=== PATIENT | female | born 1985 | race Caucasian/White ===

== ENCOUNTER 2018-06-28 11:44 | Inpatient (IN) | payer BC ==
[~2018-06-28] VITALS: Ht 172.7 cm; Wt 67.1 kg
--- NOTE | 2018-06-28 12:14 | Emergency Room Report ---
History of Present Illness General Chief Complaint: General Complaint Source: Patient Present Illness HPI 33-year-old female patient presents the ER complaining of bilateral hidradenitis suppurativa. Patient was referred to the ER by her doctor for evaluation of her hidradenitis vs possible abscess. Patient states has been present for several years, states pain has become increased in the past few days. Reports has taken abx previously and symptoms did not improve. Patient reports wounds are on her bilateral inner thighs. Patient reports wound on the left thigh is more painful, states drained recently. Patient reports she normally takes Tylenol for pain. Denies fever, chest pain, shortness of breath , vomiting. Denies pain with defecation. Denies dysuria hematuria. Allergies: Coded Allergies: VANCOMYCIN (Verified Allergy, Mild, Itching, 06/29/18) Patient History Past Medical History: see triage record Now: No Reviewed Nursing Documentation: PMH: Agreed; PSxH: Agreed Nursing Documentation-PMH Past Medical History: No History, Except For Review of Systems All Other Systems: negative except mentioned in HPI Physical Exam Vital Signs Date Time Temp Pulse Resp B/P (MAP) Pulse Ox O2 Delivery O2 Flow Rate FiO2 06/28/18 11:49 98.2 70 17 124/73 99 Room Air Sp02 EP Interpretation: reviewed, normal General Appearance: well appearing, no apparent distress, alert, GCS 15, non- toxic Head: normocephalic, atraumatic Eyes: bilateral eye normal inspection, bilateral eye PERRL ENT: hearing grossly normal, normal pharynx, no angioedema, normal voice, uvula midline, moist mucus membranes Neck: full range of motion Respiratory: lungs clear, normal breath sounds, no rhonchi, no respiratory distress, no accessory muscle use, no wheezing, speaking full sentences Cardiovascular #1: regular rate, rhythm, no edema Gastrointestinal: non tender, soft, no mass, non-distended, no guarding, no rebound Musculoskeletal: back normal, digits/nails normal, gait/station normal, normal range of motion, non-tender Neurologic: alert, oriented x3, responsive, motor strength/tone normal, sensory intact Psychiatric: mood/affect normal Skin: other - obvious bilateral suppurtiva located on proximal inner thighs with possible abscess formation, no active drainage, erythema, no edema Medical Decision Making PA Attestation Dr. Durant is my supervising Physician whom patient management has been discussed with. Diagnostic Impression: Primary Impression: Abscess Additional Impression: Hidradenitis suppurativa ER Course Pt. presents to the ED c/o hidradenitis suppurativa on bilateral proximal inner thighs. Ddx considered but are not limited to hydradenitis, cellulitis, abscess. Vital signs: are WNL, pt. is afebrile ER COURSE: Provide with Tylenol for pain relief. CBC unremarkable CMP unremarkable UA pending Urine <1, unlikely Blood type A+, antibody negative EKG shows no ST elevations or atrial fibrillation CXR negative for acute disease per the preliminary reading Patient has a history of hidradenitis suppurativa, history consistent with physical exam however erythema and history of drainage consistent with possible abscess formation, patient has had symptoms present for years with recent increase in severity, likely needs admission for IV antibiotics and possible surgical drainage. Discuss patient with Dr. Durant. Patient will be admitted to Dr. Samuel by with consultation from Dr. Banegas. - Please note that this Emergency Department Report was dictated using [employer] searcher technology software, occasionally this can lead to erroneous entry secondary to interpretation by the dictation equipment. Labs Test 06/28/18 11:25 06/28/18 13:15 White Blood Count 7.1 K/UL (4.8-10.8) Red Blood Count 4.49 M/UL (4.20-5.40) Hemoglobin 13.0 G/DL (12.0-16.0) Hematocrit 38.4 % (37.0-47.0) Mean Corpuscular Volume 85 FL (80-99) Mean Corpuscular Hemoglobin 29.0 PG (27.0-31.0) Mean Corpuscular Hemoglobin Concent 33.9 G/DL (32.0-36.0) Red Cell Distribution Width 11.2 % (11.6-14.8) Platelet Count 220 K/UL (150-450) Mean Platelet Volume 7.7 FL (6.5-10.1) Neutrophils (%) (Auto) 70.3 % (45.0-75.0) Lymphocytes (%) (Auto) 22.5 % (20.0-45.0) Monocytes (%) (Auto) 5.7 % (1.0-10.0) Eosinophils (%) (Auto) 0.7 % (0.0-3.0) Basophils (%) (Auto) 0.8 % (0.0-2.0) Sodium Level 140 MMOL/L (136-145) Potassium Level 3.9 MMOL/L (3.5-5.1) Chloride Level 104 MMOL/L (98-107) Carbon Dioxide Level 26 MMOL/L (21-32) Anion Gap 10 mmol/L (5-15) Blood Urea Nitrogen 8 mg/dL (7-18) Creatinine 0.8 MG/DL (0.55-1.30) Estimat Glomerular Filtration Rate > 60 mL/min (>60) Glucose Level 93 MG/DL (74-106) Calcium Level 9.0 MG/DL (8.5-10.1) Total Bilirubin 0.3 MG/DL (0.2-1.0) Aspartate Amino Transf (AST/SGOT) 16 U/L (15-37) Alanine Aminotransferase (ALT/SGPT) 20 U/L (12-78) Alkaline Phosphatase 52 U/L (46-116) Total Protein 8.0 G/DL (6.4-8.2) Albumin 4.0 G/DL (3.4-5.0) Globulin 4.0 g/dL Albumin/Globulin Ratio 1.0 (1.0-2.7) Lipase 145 U/L (73-393) Human Chorionic Gonadotropin, Quant 1 mIU/mL (1-6) Urine HCG, Qualitative Negative (NEGATIVE) EKG Diagnostic Results Rate: normal Rhythm: NSR ST Segments: no acute changes ASA given to the pt in ED: Yes LAURIE ScribSho Palacio PA-C Rhythm Strip Diag. Results EP Interpretation: yes Rhythm: NSR PA ScribSho Palacio PA-C Chest X-Ray Diagnostic Results Chest X-Ray Diagnostic Results : Chest X-Ray Ordered: Yes # of Views/Limited/Complete: 1 View Indication: Other - Admission EP Interpretation: Yes PA Xray: Interpretation reviewed, by supervising MD, and agrees with findings. Interpretation: no consolidation, no effusion, no pneumothorax, no acute cardiopulmonary disease Impression: No acute disease PA Scribe Vinny Palacio PA-C Last Vital Signs Date Time Temp Pulse Resp B/P (MAP) Pulse Ox O2 Delivery O2 Flow Rate FiO2 06/28/18 11:49 98.2 70 17 124/73 99 Room Air Disposition: ADMITTED INPATIENT Condition: Serious Scripts No Active Prescriptions or Reported Meds Darius Palacio Jun 28, 2018 12:14
[2018-06-28] MEDS ORDERED: Acetaminophen 500mg (ES) tab ORAL ONE (12:15)
[2018-06-28 12:16] VITALS: BP 98/86
[2018-06-28 12:49] LABS: ANION GAP 10 mmol/L (5-15); BLOOD UREA NITROGEN 8 mg/dL (7-18); CARBON DIOXIDE 26 MMOL/L (21-32); CHLORIDE 104 MMOL/L (98-107); CREATININE 0.8 MG/DL (0.55-1.30); POTASSIUM 3.9 MMOL/L (3.5-5.1); SODIUM 140 MMOL/L (136-145)
[2018-06-28 12:53] LABS: ALANINE AMINOTRANSFERASE 20 U/L (12-78); ALKALINE PHOSPHATASE 52 U/L (46-116); ASPARTATE AMINO TRANSFERASE 16 U/L (15-37); BILIRUBIN,TOTAL 0.3 MG/DL (0.2-1.0)
[2018-06-28 13:05] LABS: BASOPHILS % (AUTO) 0.8 % (0.0-2.0); EOSINOPHILS % (AUTO) 0.7 % (0.0-3.0); HEMATOCRIT 38.4 % (37.0-47.0); LYMPHOCYTES % (AUTO) 22.5 % (20.0-45.0); MEAN CORPUSCULAR VOLUME 85 FL (80-99); MONOCYTES % (AUTO) 5.7 % (1.0-10.0); NEUTROPHILS % (AUTO) 70.3 % (45.0-75.0); PLATELET COUNT 220 K/UL (150-450); RED BLOOD COUNT 4.49 M/UL (4.20-5.40); RED CELL DISTRIBUTION WIDTH 11.2 % (11.6-14.8); WHITE BLOOD COUNT 7.1 K/UL (4.8-10.8)
--- NOTE | 2018-06-28 13:11 | History and Physical ---
History of Present Illness General Date patient seen: Jun 28, 2018 Time patient seen: 12:58 Reason for Hospitalization: b/l inguinal abscess Present Illness HPI 33 yo female with no sig pmh presents with complaints of worsening abscesses in her inguinal region bilaterally. Patient states she has had these abscesses for months, has not been improving with antibiotics that she has been prescribed in the past. Denies any fevers or chills, no nausea/vomiting, denies any diarrhea/ constipation, denies any dysuria. States pain can become 8/10 in severity without radiation of pain, pain is typically throbbing in characteristic and occasionally uses NSAIDs for pain relief. Social hx: reviewed, denies any smoking, alcohol, or drug use fam hx: reviewed, denies any sig past medical history code status reviewed, would like to remain FULL CODE. Allergies: Coded Allergies: No Known Allergies (Unverified , 06/28/18) Medication History No Active Prescriptions or Reported Meds Patient History Healthcare decision maker Resuscitation status Advanced Directive on File Review of Systems All Other Systems: negative except mentioned in HPI ROS Narrative ROS: 14 point ros reviewed and negative except per above HPI Physical Exam General Appearance: WD/WN, no apparent distress, alert Lines, tubes and drains: peripheral HEENT: normocephalic, atraumatic, anicteric Neck: non-tender, normal alignment, supple, normal inspection Respiratory/Chest: chest wall non-tender, lungs clear, normal breath sounds, no respiratory distress, no accessory muscle use Cardiovascular/Chest: normal peripheral pulses, normal rate, regular rhythm Abdomen: normal bowel sounds, non tender, soft, no organomegaly Extremities: normal range of motion, non-tender, normal inspection Skin Exam: other - b/l inguinal abscesses 4 x4cm with mucopurulent drainage and surrounding erythema. +TTP Neurologic: roping tender II-XII grossly normal, no motor/sensory deficits, alert, oriented x 3 Last 24 Hour Vital Signs Date Time Temp Pulse Resp B/P (MAP) Pulse Ox O2 Delivery O2 Flow Rate FiO2 06/28/18 12:16 66 12 Room Air 100 06/28/18 12:16 98.5 66 12 98/86 100 Room Air 06/28/18 11:49 98.2 70 17 124/73 99 Room Air Laboratory Tests Test 06/28/18 11:25 White Blood Count Pending Red Blood Count Pending Hemoglobin Pending Hematocrit Pending Mean Corpuscular Volume Pending Mean Corpuscular Hemoglobin Pending Mean Corpuscular Hemoglobin Concent Pending Red Cell Distribution Width Pending Platelet Count Pending Mean Platelet Volume Pending Neutrophils (%) (Auto) Pending Lymphocytes (%) (Auto) Pending Monocytes (%) (Auto) Pending Eosinophils (%) (Auto) Pending Basophils (%) (Auto) Pending Sodium Level Pending Potassium Level Pending Chloride Level Pending Carbon Dioxide Level Pending Blood Urea Nitrogen Pending Creatinine Pending Estimat Glomerular Filtration Rate Pending Glucose Level Pending Calcium Level Pending Total Bilirubin Pending Aspartate Amino Transf (AST/SGOT) Pending Alanine Aminotransferase (ALT/SGPT) Pending Alkaline Phosphatase Pending Total Protein Pending Albumin Pending Globulin Pending Lipase Pending Human Chorionic Gonadotropin, Quant Pending Height (Feet): 5 Height (Inches): 8.00 Weight (Pounds): 145 Medications Current Medications Medications (Trade) Dose Ordered Sig/Megan Route PRN Reason Start Time Stop Time Status Last Admin Dose Admin Sodium Chloride 1,000 ml @ 999 mls/hr Q1H1M ONCE IV 06/28/18 12:05 06/28/18 13:05 06/28/18 12:27 Assessment/Plan Problem List: (1) Pain ICD Codes: R52 - Pain, unspecified SNOMED: 74391998 (2) Cellulitis ICD Codes: L03.90 - Cellulitis, unspecified SNOMED: 445313789 (3) Abscess ICD Codes: L02.91 - Cutaneous abscess, unspecified SNOMED: 058227560 (4) Hidradenitis suppurativa ICD Codes: L73.2 - Hidradenitis suppurativa SNOMED: 66745610 Status: stable Assessment/Plan #Abscess #Cellulitis #Hidradenitis Suppurative #Pain Plan: abscess with surrounding cellulitis, high concerns for hidradenitis suppurative with pain associated required IV Morphine 1mg q4hrs prn for pain patient started on broad spectrum antibiotics, vanco, zosyn pending labs Dr. Banegas aware, will eval patient, plan for OR likely tomorrow afternoon for excision EKG reviewed, NSR, no acute st t wave changes noted. relatively normal ekg Denies any cardiac risk factors, dnies CAD, HF, CVD, DM, Renal insuff patient is low risk for intermediate risk surgery patient is medically optimized for surgery Postop: prophylactic anticoagulation per surgery, Incentive Spirometry, abx iv, pain control ppx: scd diet: regular diet, npo after midnight Agustin Heredia [place] [place] [facility] Inpatient will required an estimated 3-5 midnights stay due to antibiotic management along with procedures required by plastic surgery. I spent over 71 minutes on this patient's case, and over 35 minutes was dedicated to counseling and/or care coordination. Agustin Heredia MD Jun 28, 2018 13:11
--- NOTE | 2018-06-28 13:23 | Diagnostic Imaging Report ---
Indication: Cough Comparison: None A single view chest radiograph was obtained. Findings: Cardiomediastinal appearance is within normal limits for age. The lungs are clear. Pulmonary vascularity is appropriate. The diaphragmatic contour is smooth and costophrenic angles are sharp. No pleural effusions are identified. The bones are unremarkable. Impression: No acute findings
[2018-06-28 13:35] VITALS: BP 107/57
[2018-06-28] MEDS ORDERED: Sennosides 8.6mg tab ORAL PRN (13:45)
[2018-06-28] MEDS ORDERED: Morphine Sulfate 2mg/ml Inj IVP PRN (13:45)
[2018-06-28 13:54] LABS: APPEARANCE,URINE SLIGHTLY CLOUDY; BILIRUBIN, URINE NEGATIVE (NEGATIVE); COLOR,URINE PALE YELLOW; GLUCOSE, URINE (UA) NEGATIVE (NEGATIVE); KETONES,URINE NEGATIVE (NEGATIVE); LEUKOCYTE ESTERASE ,URINE 2+ (NEGATIVE); NITRITE,URINE NEGATIVE (NEGATIVE); PH,URINE 8 (4.5-8.0); PROTEIN,URINE NEGATIVE (NEGATIVE); UROBILINOGEN,URINE NORMAL MG/DL (0.0-1.0)
[2018-06-28] MEDS: Piperacillin/Tazobactam 3.375 GM in D5W 110 ML IVPB SCH ×2 (15:48→23:40)
[2018-06-28 16:00] VITALS: BP 116/76
[2018-06-28] MEDS ORDERED: TransDerm Scop 1mg/72HR Patch TDERMAL SCH (17:30)
[2018-06-28 20:00] VITALS: BP 99/57
[2018-06-28] MEDS ORDERED: Vancomycin 1.5 GM/D5W 250ML IVPB ONE (20:00)
[2018-06-28] MEDS: D5 1/2NS 1,000 ML IV SCH (23:40)
[2018-06-29] VITALS (13 sets, daily range): BP systolic 96–111; BP diastolic 47–64
[2018-06-29 06:00] LABS: HEMATOCRIT 35.9 % (37.0-47.0); HEMOGLOBIN 12.3 G/DL (12.0-16.0); MEAN CORPUSCULAR VOLUME 85 FL (80-99); PLATELET COUNT 207 K/UL (150-450); RED BLOOD COUNT 4.22 M/UL (4.20-5.40); RED CELL DISTRIBUTION WIDTH 10.9 % (11.6-14.8); WHITE BLOOD COUNT 14.4 K/UL (4.8-10.8)
[2018-06-29] MEDS ORDERED: TransDerm Scop 1mg/72HR Patch TDERMAL SCH (06:00)
[2018-06-29 06:07] LABS: ANION GAP 7 mmol/L (5-15); BLOOD UREA NITROGEN 11 mg/dL (7-18); CALCIUM 8.5 MG/DL (8.5-10.1); CARBON DIOXIDE 26 MMOL/L (21-32); CHLORIDE 104 MMOL/L (98-107); CREATININE 1.2 MG/DL (0.55-1.30); POTASSIUM 3.9 MMOL/L (3.5-5.1); SODIUM 137 MMOL/L (136-145)
[2018-06-29] MEDS: Piperacillin/Tazobactam 3.375 GM in D5W 110 ML IVPB SCH ×3 (06:17→22:41)
[2018-06-29] MEDS ORDERED: Vancomycin 1gm/D5W 275ml IVPB SCH ×2 (10:00)
--- NOTE | 2018-06-29 10:00 | Anethesia Preoperative Eval ---
Anesthesia Pre-op PMH/ROS General Date of Evaluation: Jun 29, 2018 Time of Evaluation: 09:57 Anesthesiologist: Rey ASA Score: ASA 2 Mallampati Score Class I : Soft palate, uvula, fauces, pillars visible Class II: Soft palate, uvula, fauces visible Class III: Soft palate, base of uvula visible Class IV: Only hard plate visible Mallampati Classification: Class II Surgeon: Makenzie Diagnosis: Recurrent HS Surgical Procedure: Excision of bilateral groin HS Anesthesia History: none Family History: no anesthesia problems Allergies: Coded Allergies: VANCOMYCIN (Verified Allergy, Mild, Itching, 06/29/18) Patient NPO?: Yes NPO Date: Jun 29, 2018 NPO Time: 0000 Past Medical History Cardiovascular: Denies: HTN, CAD, [place], valve dz, arrhythmia, other Pulmonary: Denies: asthma, COPD, ERICKA, other Gastrointestinal/Genitourinary: Reports: GERD - mild; Denies: CRI, ESRD, other Neurologic/Psychiatric: Reports: depression/anxiety; Denies: dementia, CVA, TIA, other Endocrine: Denies: DM, hypothyroidism, steroids, other HEENT: Denies: cataract (L), cataract (R), glaucoma, [place] (L), [place] (R), other Hematology/Immune: Denies: anemia, DVT, bleeding disorder, other Musculoskeletal/Integumentary: Denies: OA, RA, DJD, DDD, edema, other PMH Narrative: as above PSxH Narrative: none Anesthesia Pre-op Phys. Exam Physician Exam Last Vital Signs Date Time Temp Pulse Resp B/P (MAP) Pulse Ox O2 Delivery O2 Flow Rate FiO2 06/29/18 08:00 98.8 71 18 108/63 (78) 99 06/28/18 15:33 Room Air 06/28/18 12:16 100 Constitutional: NAD Neurologic: CN 2-12 intact Cardiovascular: RRR, no M/R/G Respiratory: CTA Gastrointestinal: S/NT/ND Airway Exam Mallampati Score: Class II MO: full Neck: flexible ROM: full Teeth: intact Dentures: no upper, no lower Anesthesia Pre-op A/P Labs Hematology Test 06/28/18 11:25 06/29/18 04:47 White Blood Count 7.1 K/UL (4.8-10.8) 14.4 K/UL (4.8-10.8) #H Red Blood Count 4.49 M/UL (4.20-5.40) 4.22 M/UL (4.20-5.40) Hemoglobin 13.0 G/DL (12.0-16.0) 12.3 G/DL (12.0-16.0) Hematocrit 38.4 % (37.0-47.0) 35.9 % (37.0-47.0) L Mean Corpuscular Volume 85 FL (80-99) 85 FL (80-99) Mean Corpuscular Hemoglobin 29.0 PG (27.0-31.0) 29.1 PG (27.0-31.0) Mean Corpuscular Hemoglobin Concent 33.9 G/DL (32.0-36.0) 34.2 G/DL (32.0-36.0) Red Cell Distribution Width 11.2 % (11.6-14.8) L 10.9 % (11.6-14.8) L Platelet Count 220 K/UL (150-450) 207 K/UL (150-450) Mean Platelet Volume 7.7 FL (6.5-10.1) 7.3 FL (6.5-10.1) Neutrophils (%) (Auto) 70.3 % (45.0-75.0) % (45.0-75.0) Lymphocytes (%) (Auto) 22.5 % (20.0-45.0) % (20.0-45.0) Monocytes (%) (Auto) 5.7 % (1.0-10.0) % (1.0-10.0) Eosinophils (%) (Auto) 0.7 % (0.0-3.0) % (0.0-3.0) Basophils (%) (Auto) 0.8 % (0.0-2.0) % (0.0-2.0) Chemistry Test 06/28/18 11:25 06/29/18 04:47 Sodium Level 140 MMOL/L (136-145) 137 MMOL/L (136-145) Potassium Level 3.9 MMOL/L (3.5-5.1) 3.9 MMOL/L (3.5-5.1) Chloride Level 104 MMOL/L (98-107) 104 MMOL/L (98-107) Carbon Dioxide Level 26 MMOL/L (21-32) 26 MMOL/L (21-32) Anion Gap 10 mmol/L (5-15) 7 mmol/L (5-15) Blood Urea Nitrogen 8 mg/dL (7-18) 11 mg/dL (7-18) Creatinine 0.8 MG/DL (0.55-1.30) 1.2 MG/DL (0.55-1.30) Estimat Glomerular Filtration Rate > 60 mL/min (>60) 52.1 mL/min (>60) Glucose Level 93 MG/DL (74-106) 115 MG/DL (74-106) H Calcium Level 9.0 MG/DL (8.5-10.1) 8.5 MG/DL (8.5-10.1) Total Bilirubin 0.3 MG/DL (0.2-1.0) Aspartate Amino Transf (AST/SGOT) 16 U/L (15-37) Alanine Aminotransferase (ALT/SGPT) 20 U/L (12-78) Alkaline Phosphatase 52 U/L (46-116) Total Protein 8.0 G/DL (6.4-8.2) Albumin 4.0 G/DL (3.4-5.0) Globulin 4.0 g/dL Albumin/Globulin Ratio 1.0 (1.0-2.7) Lipase 145 U/L (73-393) Human Chorionic Gonadotropin, Quant 1 mIU/mL (1-6) Urine Test Test 06/28/18 13:15 Urine HCG, Qualitative Negative (NEGATIVE) Risk Assessment & Plan Assessment: ASA 2 Plan: GA with LMA Status Change Before Surgery: No Pre-Antibiotics Drug: Ancef Harley Ratliff MD Jun 29, 2018 10:00
--- NOTE | 2018-06-29 11:06 | Pre-Procedure Note/Attestation ---
Pre-Procedure Note/Attestation Complete Prior to Procedure Planned Procedure: bilateral Procedure Narrative: Bilateral groin/thigh debridement and flap elevation Attestation I attest that I discussed the nature of the procedure; its benefits; risks and complications; and alternatives (and the risks and benefits of such alternatives ), prior to the procedure, with the patient (or the patient's legal advertising sales representative). I attest that, if there was a reasonable possibility of needing a blood transfusion, the patient (or the patient's legal advertising sales representative) was given the [facility] standardized written summary, pursuant to the [place] Blood Safety Act ([place] Health and Safety Code # 1645, as amended). I attest that I re-evaluated the patient just prior to the surgery and that there has been no change in the patient's H&P, except as documented below: Davina Banegas MD Jun 29, 2018 11:06
[2018-06-29] MEDS ORDERED: Rate Change PCA 1 Each MISC PRN (11:15)
[2018-06-29] MEDS ORDERED: PCA HYDROmorphone 1mg/ml 30 ML IV PRN (11:15)
[2018-06-29] MEDS ORDERED: PCA Education Pamphlet MISC ONE (11:15)
[2018-06-29] MEDS ORDERED: fentaNYL 100 mcg/2 mL IV ONE (11:40)
[2018-06-29] MEDS ORDERED: Midazolam 2mg/2ml Inj ONE (11:40)
[2018-06-29] MEDS ORDERED: Lidocaine 1% MPF 10mg/ml 5ml ONE (11:43)
[2018-06-29] MEDS ORDERED: Propofol 200mg/20ml IV ONE ×2 (11:43→13:26)
[2018-06-29] MEDS ORDERED: EPINEPHrine 1mg/1ml Amp ONE (11:58)
[2018-06-29] MEDS ORDERED: Bacitracin Oint 15gm Tube TOPIC ONE (11:58)
[2018-06-29] MEDS ORDERED: NeoSporin Gu Irrig 1ml Amp IRRIG ONE ×2 (11:59→13:52)
[2018-06-29] MEDS ORDERED: Bacitracin 50000 Units Vial ONE (11:59)
[2018-06-29] MEDS ORDERED: Lidocaine 1% 10mg/ml/Epi 0.005mg/ml 30ml vial INJ ONE (11:59)
--- NOTE | 2018-06-29 12:55 | General Progress Note ---
Assessment/Plan Problem List: (1) Pain ICD Codes: R52 - Pain, unspecified SNOMED: 83531547 (2) Cellulitis ICD Codes: L03.90 - Cellulitis, unspecified SNOMED: 034867040 (3) Abscess ICD Codes: L02.91 - Cutaneous abscess, unspecified SNOMED: 889543823 (4) Hidradenitis suppurativa ICD Codes: L73.2 - Hidradenitis suppurativa SNOMED: 27097858 Status: stable Assessment/Plan #Abscess #Cellulitis #Hidradenitis Suppurative #Pain #allergic reaction to vancomycin Plan: abscess with surrounding cellulitis, high concerns for hidradenitis suppurative with pain associated required IV Morphine 1mg q4hrs prn for pain patient started on broad spectrum antibiotics, on zosyn, seemed to have an allergic reaction to vanco overnight , was given benadryl overnight, ID consulted Dr. Banegas aware, will eval patient, plan for OR today for excision EKG reviewed, NSR, no acute st t wave changes noted. relatively normal ekg Denies any cardiac risk factors, denies CAD, HF, CVD, DM, Renal insuff patient is low risk for intermediate risk surgery patient is medically optimized for surgery Postop: prophylactic anticoagulation per surgery, Incentive Spirometry, abx iv, pain control ppx: scd diet: npo, resume diet postop. [facility] will required an estimated 3-5 midnights stay due to antibiotic management along with procedures required by plastic surgery. I spent over 71 minutes on this patient's case, and over 35 minutes was dedicated to counseling and/or care coordination. Subjective Date patient seen: Jun 29, 2018 Time patient seen: 07:39 Allergies: Coded Allergies: VANCOMYCIN (Verified Allergy, Mild, Itching, 06/29/18) Subjective f/u inguinal abscesses with surrounding cellulitis concerns for hydradenitis suppurativa denies any fevers/chills states pain is well controlled patient seemed to have an allergic reaction to vancomycin yesterday evening, states she became very itchy and that her face became red planned for OR today Objective Last 24 Hour Vital Signs Date Time Temp Pulse Resp B/P (MAP) Pulse Ox O2 Delivery O2 Flow Rate FiO2 06/29/18 08:00 98.8 71 18 108/63 (78) 99 06/29/18 04:00 98.2 65 18 111/64 (80) 98 06/29/18 00:00 98.2 67 19 101/58 (72) 100 06/28/18 20:00 98.5 58 17 99/57 (71) 100 06/28/18 16:00 98.3 66 18 116/76 (89) 99 06/28/18 15:33 Room Air 06/28/18 15:14 98.0 61 10 100/51 100 Room Air 06/28/18 13:35 98.4 64 18 107/57 (74) 98 Intake and Output 06/28/18 06/29/18 19:00 07:00 Intake Total 482.5 ml 315 ml Balance 482.5 ml 315 ml Intake Oral 400 ml 240 ml IV Total 82.5 ml 75 ml # Voids 3 2 Laboratory Tests 06/28/18 13:15: Urine Color Pale yellow, Urine Appearance Slightly cloudy, Urine pH 8, Urine Specific [place] 1.010, Urine Protein Negative, Urine Glucose (UA) Negative, Urine Ketones Negative, Urine Blood Negative, Urine Nitrite Negative, Urine Bilirubin Negative, Urine Urobilinogen Normal, Urine Leukocyte Esterase 2+H, Urine RBC 2-4H, Urine WBC 10-15H, Urine Squamous Epithelial Cells ModerateH, Urine Bacteria ModerateH, Urine HCG, Qualitative Negative 06/29/18 04:47: White Blood Count 14.4#H, Red Blood Count 4.22, Hemoglobin 12.3, Hematocrit 35.9L, Mean Corpuscular Volume 85, Mean Corpuscular Hemoglobin 29.1, Mean Corpuscular Hemoglobin Concent 34.2, Red Cell Distribution Width 10.9L, Platelet Count 207, Mean Platelet Volume 7.3, Neutrophils (%) (Auto) , Lymphocytes (%) (Auto) , Monocytes (%) (Auto) , Eosinophils (%) (Auto) , Basophils (%) (Auto) , Sodium Level 137, Potassium Level 3.9, Chloride Level 104 , Carbon Dioxide Level 26, Anion Gap 7, Blood Urea Nitrogen 11, Creatinine 1.2, Estimat Glomerular Filtration Rate 52.1, Glucose Level 115H, Calcium Level 8.5 Height (Feet): 5 Height (Inches): 8.00 Weight (Pounds): 140 General Appearance: no apparent distress, alert EENT: PERRL/EOMI, normal ENT inspection, TMs normal, pharynx normal Neck: non-tender, normal alignment, supple, normal inspection, abnormal alignment Cardiovascular: normal peripheral pulses, normal rate, regular rhythm Respiratory/Chest: chest wall non-tender, lungs clear, normal breath sounds Abdomen: normal bowel sounds, non tender, soft, no organomegaly, no mass Extremities: normal range of motion, non-tender, normal inspection Neurologic: machinist linotype II-XII grossly normal, no motor/sensory deficits, abnormal gait , alert, oriented x 3, responsive, normal mood/affect Skin: normal pigmentation, warm/dry Agustin Heredia MD Jun 29, 2018 12:55
[2018-06-29] MEDS: D5 1/2NS 1,000 ML IV SCH (13:20)
[2018-06-29] MEDS ORDERED: Morphine Sulfate 10mg/ml Inj ONE (13:25)
[2018-06-29] MEDS ORDERED: Sodium Chloride 10ml vial INJ ONE (13:26)
[2018-06-29] MEDS ORDERED: Ketorolac 30mg Inj ONE (13:26)
[2018-06-29] MEDS ORDERED: LR 1000ml 1,000 ML IVLG SCH (13:33)
--- NOTE | 2018-06-29 13:33 | Infectious Diseases Prog Note ---
Assessment/Plan Assessment/Plan Full consult to follow: hidradenitis suppurativa bilateral groin with cellulitis/abscess/wound infection in surgery currently for debridement had reaction to vancomycin - itching will change abx to zosyn and zyvox will f/u thank you Subjective Allergies: Coded Allergies: VANCOMYCIN (Verified Allergy, Mild, Itching, 06/29/18) Objective Vital Signs Last 24 Hour Vital Signs Date Time Temp Pulse Resp B/P (MAP) Pulse Ox O2 Delivery O2 Flow Rate FiO2 06/29/18 08:00 98.8 71 18 108/63 (78) 99 06/29/18 04:00 98.2 65 18 111/64 (80) 98 06/29/18 00:00 98.2 67 19 101/58 (72) 100 06/28/18 20:00 98.5 58 17 99/57 (71) 100 06/28/18 16:00 98.3 66 18 116/76 (89) 99 06/28/18 15:33 Room Air 06/28/18 15:14 98.0 61 10 100/51 100 Room Air 06/28/18 13:35 98.4 64 18 107/57 (74) 98 Height (Feet): 5 Height (Inches): 8.00 Weight (Pounds): 140 Microbiology Date/Time Source Procedure Growth Status 06/28/18 13:15 Urine,Clean Catch Urine Culture - Preliminary Resulted Laboratory Tests Test 06/29/18 04:47 White Blood Count 14.4 K/UL (4.8-10.8) #H Red Blood Count 4.22 M/UL (4.20-5.40) Hemoglobin 12.3 G/DL (12.0-16.0) Hematocrit 35.9 % (37.0-47.0) L Mean Corpuscular Volume 85 FL (80-99) Mean Corpuscular Hemoglobin 29.1 PG (27.0-31.0) Mean Corpuscular Hemoglobin Concent 34.2 G/DL (32.0-36.0) Red Cell Distribution Width 10.9 % (11.6-14.8) L Platelet Count 207 K/UL (150-450) Mean Platelet Volume 7.3 FL (6.5-10.1) Neutrophils (%) (Auto) % (45.0-75.0) Lymphocytes (%) (Auto) % (20.0-45.0) Monocytes (%) (Auto) % (1.0-10.0) Eosinophils (%) (Auto) % (0.0-3.0) Basophils (%) (Auto) % (0.0-2.0) Sodium Level 137 MMOL/L (136-145) Potassium Level 3.9 MMOL/L (3.5-5.1) Chloride Level 104 MMOL/L (98-107) Carbon Dioxide Level 26 MMOL/L (21-32) Anion Gap 7 mmol/L (5-15) Blood Urea Nitrogen 11 mg/dL (7-18) Creatinine 1.2 MG/DL (0.55-1.30) Estimat Glomerular Filtration Rate 52.1 mL/min (>60) Glucose Level 115 MG/DL (74-106) H Calcium Level 8.5 MG/DL (8.5-10.1) Current Medications Medications (Trade) Dose Ordered Sig/Megan Route PRN Reason Start Time Stop Time Status Last Admin Dose Admin Acetaminophen (Tylenol) 650 mg Q4H PRN ORAL FEVER 06/29/18 11:15 07/29/18 11:14 UNV Dextrose/Sodium Chloride 1,000 ml @ 75 mls/hr [id number] IV 06/29/18 00:00 07/29/18 00:00 06/28/18 23:40 Diphenhydramine HCl (Benadryl) 25 mg Q6H PRN ORAL Itching 06/29/18 00:15 07/29/18 00:14 06/29/18 00:30 Heparin Sodium (Porcine) (Heparin 5000 units/ml) 5,000 units EVERY 12 HOURS SUBQ 06/29/18 21:00 07/29/18 20:59 UNV Hydromorphone HCl 30 ml @ 0 mls/hr Q24H PRN IV For Pain 06/29/18 11:15 07/01/18 11:14 UNV Linezolid 300 ml @ 300 mls/hr EVERY 12 HOURS IVPB 06/29/18 21:00 07/06/18 20:59 UNV Miscellaneous Medication (INVENTORY TRANSCRIBER Education Pamphlet) 1 ea ONCE ONCE MISC 06/29/18 11:15 06/29/18 11:16 UNV Miscellaneous Medication (INVENTORY TRANSCRIBER Rate Change) 1 ea DAILY PRN MISC rate change 06/29/18 11:15 07/01/18 11:14 UNV Miscellaneous Medication (INVENTORY TRANSCRIBER shift volume) 1 ea Q12HR@0700,1900 MISC 06/29/18 19:00 07/01/18 18:59 UNV Morphine Sulfate (Morphine Sulfate) 1 mg Q4H PRN IVP pain 06/28/18 13:45 07/05/18 13:44 Ondansetron HCl (Zofran) 4 mg Q6H PRN IVP Nausea & Vomiting 06/29/18 11:15 07/29/18 11:14 UNV Piperacillin Sod/ Tazobactam Sod 3.375 gm/Dextrose 110 ml @ 27.5 mls/hr Q8HR IVPB 06/28/18 15:00 07/05/18 14:59 06/29/18 06:17 Sennosides (Senokot) 8.6 mg DAILYPRN PRN ORAL Constipation 06/28/18 13:45 07/28/18 13:44 Zolpidem Tartrate (Ambien) 5 mg DAILYPRN PRN ORAL Insomnia 06/29/18 11:15 07/06/18 11:14 UNV Joseph Brooks MD Jun 29, 2018 13:33
[2018-06-29] MEDS ORDERED: DiphenhydrAMINE 50mg/ml Inj IVP PRN (13:45)
[2018-06-29] MEDS ORDERED: Meperidine 50mg/ml Inj(FOR RIGORS ONLY) IV PRN (13:45)
[2018-06-29] MEDS ORDERED: Hydromorphone 0.5mg/0.5ml inj IVP PRN (13:45)
[2018-06-29] MEDS ORDERED: Midazolam 2mg/2ml Inj IVP PRN (13:45)
[2018-06-29] MEDS ORDERED: Metoclopramide 10mg/2ml Inj IVP PRN (13:45)
[2018-06-29] MEDS ORDERED: Ketorolac 30mg Inj IV PRN (13:45)
[2018-06-29] MEDS ORDERED: Bacitracin 50000 Units Vial IRRIG ONE (13:51)
[2018-06-29] MEDS ORDERED: Surgicel 4in x 8in TOPIC ONE (13:52)
--- NOTE | 2018-06-29 14:01 | Operative Note - PDOC ---
Operative Note Operative Note Pre-op Diagnosis: Bilateral groin HS Procedure: Debridement of bilateral groin tissue and flap elevation Post-op Diagnosis: same as pre-op Surgeon: Makenzie Patient Financial Representative: Kelli Anesthesia: general Specimen: yes Complications: none Estimated Blood Loss: minimal Drains: none Implant(s) used?: No Davina Banegas MD Jun 29, 2018 14:01
--- NOTE | 2018-06-29 14:15 | Immediate Post-Op Evaluation ---
Immediate Post-Op Evalulation Immediate Post-Op Evalulation Procedure: Excision of bilateral groin hydradenitis Date of Evaluation: Jun 29, 2018 Time of Evaluation: 14:14 IV Fluids: 1000 Blood Products: none Estimated Blood Loss: <50 Urinary Output: 100 Blood Pressure Systolic: 105 Blood Pressure Diastolic: 64 Pulse Rate: 82 Respiratory Rate: 20 O2 Sat by Pulse Oximetry: 99 Temperature (Fahrenheit): 98.1 Pain Score (1-10): 1 Nausea: No Vomiting: No Complications none Patient Status: awake, patent, none Hydration Status: adequate Harley Le MD Jun 29, 2018 14:15
[2018-06-29] MEDS ORDERED: Tubing IV Secondary IV ONE (17:00)
[2018-06-29] MEDS ORDERED: D5 1/2NS 1000ml IV ONE (17:00)
[2018-06-29] MEDS: PCA shift volume MISC SCH (19:13)
[2018-06-29] MEDS ORDERED: Zolpidem 5mg tab ORAL PRN (20:00)
[2018-06-29] MEDS: Heparin 5000 units/ml inj SUBQ SCH (20:24)
--- NOTE | 2018-06-29 20:45 | Consultation ---
DATE OF CONSULTATION: 06/29/2018 CONSULTING PHYSICIAN: Davina Banegas M.D. ADMITTING PHYSICIAN: Agustin Heredia M.D. HISTORY OF PRESENT ILLNESS: This is a 33-year-old female, admitted to the emergency room for bilateral groin and thigh abscesses secondary to infected hidradenitis. She was admitted for pain control and control of her infection. She was started on IV antibiotics and I am seeing the patient in consultation for a possible surgical treatment. PAST MEDICAL HISTORY: Significant for hidradenitis. PAST SURGICAL HISTORY: None. ALLERGIES: Vancomycin. PHYSICAL EXAMINATION: GENERAL: The patient is alert and oriented x3. HEART: Regular rate and rhythm. ABDOMEN: Soft, nontender, and nondistended. EXTREMITIES: Examination of the extremity and perineum reveals multiple areas of abscesses and infection within the groin and upper thigh region with the left side worse than the right with pronounced pain and tenderness upon palpation of the area. ASSESSMENT AND PLAN: This is a 33-year-old female with stage III hidradenitis associated with active abscess. She will require a surgical debridement of the infected area that will be left open for a period of 48 hours followed by flap advancement closure of her wounds. She understands the plan and agrees to undergo the treatment. Davina Banegas M.D. DR: EBER JOB#: [id number] CC:
--- NOTE | 2018-06-29 21:15 | Operative Note - Dictated ---
DATE OF OPERATION: 06/29/2018 PREOPERATIVE DIAGNOSIS: Bilateral groin and upper thigh advanced hidradenitis suppurativa with abscess. POSTOPERATIVE DIAGNOSIS: Bilateral groin and upper thigh advanced hidradenitis suppurativa with abscess. PROCEDURES: 1. Radical excision of left groin/upper thigh hidradenitis. 2. Elevation of a medial thigh flap for staged closure of left groin/thigh wound. 3. Radical excision of right thigh/groin hidradenitis. 4. Elevation of a medial thigh flap for staged closure of right thigh wound. SURGEON: Davina Banegas M.D. BUTCHER HEAD: James Pereira M.D. ANESTHESIA: General. COMPLICATIONS: None. DRAINS: None. SPECIMEN: Included bilateral groin and thigh tissue. DISPOSITION: Stable to the recovery room. INDICATIONS FOR SURGERY: This is a 33-year-old female, who is admitted through the emergency room for bilateral groin and upper thigh pain and abscess associated with cellulitis secondary to advanced hidradenitis that was infected. She was admitted, started on IV antibiotics and upon evaluation by me, I felt that she was an appropriate candidate for radical excision with staged flap closure. She understood the risks and benefits of surgery and agreed to proceed. DETAILS OF THE OPERATION: The patient was brought to the operating room and laid in the supine position on the operating room table. After induction of anesthesia, she was placed in lithotomy. The areas of disease in the upper thigh and bilateral groin regions was marked with a marking pen and we first began on the left. We began on the left side by using a #10 blade to make the elliptical type of the incision around the diseased bearing tissues. Electrocautery was then used to radically excise the tissue all way down to the level of the adductor fascia. This resulted in a defect that measured approximately 15 x 10 cm and was clearly not amenable to primary closure. As such, a medial thigh flap based off of perforators of the superficial femoral artery was elevated just above the level of the adductor muscle layer and proximal and distal incisions were made to fully mobilize this tissue flap with dimensions of 15 x 8 cm for advancement. We then turned our attention to the contralateral right groin wound. A similar incision was made using a #10 blade of an elliptical type of pattern and radical excision was completed using electrocautery all the way down to the level of the adductor fascia. With this completed, we noted that the defect that resulted on this side was 17 x 11 cm and was also not amenable to primary closure. As such, a flap had to be elevated and as was done on the contralateral side. Medial thigh flap based off of perforators of the superficial femoral artery was elevated above the level of the adductor muscles with full mobilization of the flap allowing for a tension-free closure of the wound. The flap measurements here were 16 x 8 cm for advancement. With this done, both wounds were copiously irrigated with pulse lavage. Given the fact that this was an infected wound, we decided that it was not appropriate to perform definitive closure at this time. The flaps were left in place and the patient will be brought back to the operating room in 48 hours following IV antibiotics and local wound care for definitive flap inset. The patient tolerated the procedure well and will come back to the operating room within two days for final completion of her reconstruction. Davina Banegas M.D. DR: PASCUAL JOB#: [id number] CC:
[2018-06-30] VITALS: BP 102/53
[2018-06-30] MEDS: D5 1/2NS 1,000 ML IV SCH ×2 (03:01→17:45)
[2018-06-30 04:00] VITALS: BP 99/55
[2018-06-30] MEDS: Piperacillin/Tazobactam 3.375 GM in D5W 110 ML IVPB SCH ×3 (05:07→21:13)
[2018-06-30] MEDS: PCA shift volume MISC SCH ×2 (07:29→19:29)
[2018-06-30 07:42] LABS: BASOPHILS % (AUTO) 0.5 % (0.0-2.0); EOSINOPHILS % (AUTO) 0.6 % (0.0-3.0); HEMATOCRIT 33.8 % (37.0-47.0); HEMOGLOBIN 11.3 G/DL (12.0-16.0); LYMPHOCYTES % (AUTO) 16.8 % (20.0-45.0); MEAN CORPUSCULAR VOLUME 86 FL (80-99); MONOCYTES % (AUTO) 8.5 % (1.0-10.0); NEUTROPHILS % (AUTO) 73.8 % (45.0-75.0); PLATELET COUNT 162 K/UL (150-450); RED BLOOD COUNT 3.92 M/UL (4.20-5.40); RED CELL DISTRIBUTION WIDTH 11.2 % (11.6-14.8); WHITE BLOOD COUNT 8.7 K/UL (4.8-10.8)
[2018-06-30 07:45] LABS: ANION GAP 8 mmol/L (5-15); BLOOD UREA NITROGEN 12 mg/dL (7-18); CALCIUM 8.2 MG/DL (8.5-10.1); CARBON DIOXIDE 27 MMOL/L (21-32); CHLORIDE 104 MMOL/L (98-107); CREATININE 2.5 MG/DL (0.55-1.30); POTASSIUM 3.7 MMOL/L (3.5-5.1); SODIUM 139 MMOL/L (136-145)
[2018-06-30 08:13] VITALS: BP 85/51
--- NOTE | 2018-06-30 08:41 | General Progress Note ---
Progress Note Progress Note Pt seen and examined. Doing well. On PROFESSOR OF MARKETING for pain control. To OR in AM for definitive flap closure of wounds. NPO and consent in chart. MD Makenzie Vazquez Amir MD Jun 30, 2018 08:41
[2018-06-30] MEDS: Heparin 5000 units/ml inj SUBQ SCH ×2 (09:12→21:18)
--- NOTE | 2018-06-30 09:40 | 48 Hour Post Anesthesia Eval ---
Post Anesthesia Evaluation Procedure: Excision of bilateral groin hydradenitis Date of Evaluation: Jun 30, 2018 Time of Evaluation: 09:38 Blood Pressure Systolic: 102 0: 56 Pulse Rate: 74 Respiratory Rate: 20 Temperature (Fahrenheit): 97.6 O2 Sat by Pulse Oximetry: 98 Airway: patent Nausea: No Vomiting: No Pain Intensity: 2 Hydration Status: adequate Cardiopulmonary Status: stable Mental Status/LOC: patient returned to baseline Follow-up Care/Observations: n/a Post-Anesthesia Complications: none Follow-up care needed: N/A Harley Le MD Jun 30, 2018 09:39
[2018-06-30 12:50] VITALS: BP 105/58
--- NOTE | 2018-06-30 15:03 | Cardiology Report ---
APPROVED REPORT EKG Measurement Heart [id number] ID [id number] Normal sinus rhythm Normal ECG
--- NOTE | 2018-06-30 15:21 | Infectious Diseases Prog Note ---
Assessment/Plan Assessment/Plan Full consult dictated hidradenitis suppurativa bilateral groin/t with cellulitis/abscess/wound infection s/p excision/debridement had reaction to vancomycin - itching ARF leukocytosis ? uti, + ua, urine culture mixed zosyn and zyvox monitor labs avoid nephrotoxic drugs Subjective Allergies: Coded Allergies: VANCOMYCIN (Verified Allergy, Mild, Itching, 06/29/18) Objective Vital Signs Last 24 Hour Vital Signs Date Time Temp Pulse Resp B/P (MAP) Pulse Ox O2 Delivery O2 Flow Rate FiO2 06/30/18 12:50 99.0 18 18 105/58 (74) 06/30/18 12:00 18 06/30/18 09:39 74 20 98 06/30/18 09:00 Room Air 06/30/18 08:13 99.0 100 18 85/51 (62) 06/30/18 08:00 18 06/30/18 04:00 98.2 55 18 99/55 (70) 99 06/30/18 04:00 12 06/30/18 00:00 12 06/30/18 00:00 98.1 58 18 102/53 (69) 99 06/29/18 21:00 Nasal Cannula 2.0 06/29/18 20:00 12 06/29/18 20:00 98.4 55 18 104/51 (68) 100 06/29/18 16:10 12 06/29/18 16:10 98.0 62 12 104/51 (68) 100 06/29/18 15:43 99.0 64 12 105/47 (66) 99 06/29/18 15:40 12 Height (Feet): 5 Height (Inches): 8.00 Weight (Pounds): 140 Microbiology Date/Time Source Procedure Growth Status 06/28/18 13:15 Urine,Clean Catch Urine Culture - Final Mixed Gram Positive Organism Complete Laboratory Tests Test 06/30/18 07:00 White Blood Count 8.7 K/UL (4.8-10.8) Red Blood Count 3.92 M/UL (4.20-5.40) L Hemoglobin 11.3 G/DL (12.0-16.0) L Hematocrit 33.8 % (37.0-47.0) L Mean Corpuscular Volume 86 FL (80-99) Mean Corpuscular Hemoglobin 28.9 PG (27.0-31.0) Mean Corpuscular Hemoglobin Concent 33.5 G/DL (32.0-36.0) Red Cell Distribution Width 11.2 % (11.6-14.8) L Platelet Count 162 K/UL (150-450) Mean Platelet Volume 7.2 FL (6.5-10.1) Neutrophils (%) (Auto) 73.8 % (45.0-75.0) Lymphocytes (%) (Auto) 16.8 % (20.0-45.0) L Monocytes (%) (Auto) 8.5 % (1.0-10.0) Eosinophils (%) (Auto) 0.6 % (0.0-3.0) Basophils (%) (Auto) 0.5 % (0.0-2.0) Sodium Level 139 MMOL/L (136-145) Potassium Level 3.7 MMOL/L (3.5-5.1) Chloride Level 104 MMOL/L (98-107) Carbon Dioxide Level 27 MMOL/L (21-32) Anion Gap 8 mmol/L (5-15) Blood Urea Nitrogen 12 mg/dL (7-18) Creatinine 2.5 MG/DL (0.55-1.30) #H Estimat Glomerular Filtration Rate 22.3 mL/min (>60) Glucose Level 100 MG/DL (74-106) Calcium Level 8.2 MG/DL (8.5-10.1) L Current Medications Medications (Trade) Dose Ordered Sig/Megan Route PRN Reason Start Time Stop Time Status Last Admin Dose Admin Acetaminophen (Tylenol) 650 mg Q4H PRN ORAL FEVER 06/29/18 11:15 07/29/18 11:14 Dextrose/Sodium Chloride 1,000 ml @ 75 mls/hr [id number] IV 06/29/18 00:00 07/29/18 00:00 06/30/18 03:01 Diphenhydramine HCl (Benadryl) 25 mg Q6H PRN ORAL Itching 06/29/18 00:15 07/29/18 00:14 06/29/18 00:30 Heparin Sodium (Porcine) (Heparin 5000 units/ml) 5,000 units EVERY 12 HOURS SUBQ 06/29/18 21:00 07/29/18 20:59 06/30/18 09:12 Hydromorphone HCl 30 ml @ 0 mls/hr Q24H PRN IV For Pain 06/29/18 11:15 07/01/18 11:14 06/29/18 14:26 Linezolid 300 ml @ 300 mls/hr EVERY 12 HOURS IVPB 06/29/18 21:00 07/06/18 20:59 06/30/18 09:11 Miscellaneous Medication (CLAMSHELL OPERATOR Rate Change) 1 ea DAILY PRN MISC rate change 06/29/18 11:15 07/01/18 11:14 Miscellaneous Medication (CLAMSHELL OPERATOR shift volume) 1 ea Q12HR@0700,1900 MISC 06/29/18 19:00 07/01/18 18:59 06/30/18 07:29 Morphine Sulfate (Morphine Sulfate) 1 mg Q4H PRN IVP pain 06/28/18 13:45 07/05/18 13:44 Ondansetron HCl (Zofran) 4 mg Q6H PRN IVP Nausea & Vomiting 06/29/18 11:15 07/29/18 11:14 06/30/18 14:35 Piperacillin Sod/ Tazobactam Sod 3.375 gm/Dextrose 110 ml @ 27.5 mls/hr Q8HR IVPB 06/28/18 15:00 07/05/18 14:59 06/30/18 14:18 Sennosides (Senokot) 8.6 mg DAILYPRN PRN ORAL Constipation 06/28/18 13:45 07/28/18 13:44 Zolpidem Tartrate (Ambien) 5 mg DAILYPRN PRN ORAL Insomnia 06/29/18 20:00 07/06/18 19:59 Joseph Brooks MD Jun 30, 2018 15:21
--- NOTE | 2018-06-30 15:52 | General Progress Note ---
Assessment/Plan Problem List: (1) Pain ICD Codes: R52 - Pain, unspecified SNOMED: 76533738 (2) Cellulitis ICD Codes: L03.90 - Cellulitis, unspecified SNOMED: 045690227 (3) Abscess ICD Codes: L02.91 - Cutaneous abscess, unspecified SNOMED: 941999536 (4) Hidradenitis suppurativa ICD Codes: L73.2 - Hidradenitis suppurativa SNOMED: 54412218 Status: stable Assessment/Plan #Abscess #Cellulitis #Hidradenitis Suppurative #Pain #allergic reaction to vancomycin #LIANA - Cr 2.1 , nephrology consulted, started on hydration Plan: s/p excision 06/29/18, plan to OR for closure tomorrow cont abx per ID recs noted to have worsening renal function, new LIANA, nephro consulted, IVF continue excellent post op care prophylactic anticoagulation per surgery, Incentive Spirometry, abx iv, pain control ppx: scd diet: npo, resume diet postop. [facility] will required an estimated 3-5 midnights stay due to antibiotic management along with procedures required by plastic surgery. I spent over 45 minutes on this patient's case, and over 31 minutes was dedicated to counseling and/or care coordination. Subjective Date patient seen: Jun 30, 2018 Time patient seen: 06:42 Allergies: Coded Allergies: VANCOMYCIN (Verified Allergy, Mild, Itching, 06/29/18) Subjective f/u inguinal abscesses with surrounding cellulitis concerns for hydradenitis suppurativa denies any fevers/chills states pain is well controlled doing well postop, denies any complaints no acute events overnight planned for OR again tomorow 14 point ROS reviewed and negative except for the above Objective Last 24 Hour Vital Signs Date Time Temp Pulse Resp B/P (MAP) Pulse Ox O2 Delivery O2 Flow Rate FiO2 06/30/18 12:50 99.0 18 18 105/58 (74) 06/30/18 12:00 18 06/30/18 09:39 74 20 98 06/30/18 09:00 Room Air 06/30/18 08:13 99.0 100 18 85/51 (62) 06/30/18 08:00 18 06/30/18 04:00 98.2 55 18 99/55 (70) 99 06/30/18 04:00 12 06/30/18 00:00 12 06/30/18 00:00 98.1 58 18 102/53 (69) 99 06/29/18 21:00 Nasal Cannula 2.0 06/29/18 20:00 12 06/29/18 20:00 98.4 55 18 104/51 (68) 100 06/29/18 16:10 12 06/29/18 16:10 98.0 62 12 104/51 (68) 100 Intake and Output 06/29/18 06/30/18 19:00 07:00 Intake Total 2322.5 ml Output Total 200 ml 450 ml Balance 2122.5 ml -450 ml Intake Oral 360 ml IV Total 1962.5 ml Output Urine Total 160 ml 450 ml Estimated Blood Loss 40 ml # Voids 2 Laboratory Tests 06/30/18 07:00: White Blood Count 8.7, Red Blood Count 3.92L, Hemoglobin 11.3L, Hematocrit 33.8L , Mean Corpuscular Volume 86, Mean Corpuscular Hemoglobin 28.9, Mean Corpuscular Hemoglobin Concent 33.5, Red Cell Distribution Width 11.2L, Platelet Count 162, Mean Platelet Volume 7.2, Neutrophils (%) (Auto) 73.8, Lymphocytes (%) (Auto) 16.8L, Monocytes (%) (Auto) 8.5, Eosinophils (%) (Auto) 0.6, Basophils (%) (Auto) 0.5, Sodium Level 139, Potassium Level 3.7, Chloride Level 104, Carbon Dioxide Level 27, Anion Gap 8, Blood Urea Nitrogen 12, Creatinine 2.5#H, Estimat Glomerular Filtration Rate 22.3, Glucose Level 100, Calcium Level 8.2L Height (Feet): 5 Height (Inches): 8.00 Weight (Pounds): 140 General Appearance: WD/WN, no apparent distress, alert EENT: PERRL/EOMI, normal ENT inspection, TMs normal Neck: non-tender, normal alignment, supple, normal inspection Cardiovascular: normal peripheral pulses, normal rate, regular rhythm Respiratory/Chest: chest wall non-tender, lungs clear, normal breath sounds, no respiratory distress, no accessory muscle use Abdomen: normal bowel sounds, non tender, soft, no organomegaly, no mass Extremities: normal range of motion, non-tender, normal inspection Neurologic: shellfish harvester II-XII grossly normal, no motor/sensory deficits, alert, oriented x 3, responsive, normal mood/affect Agustin Heredia MD Jun 30, 2018 15:52
[2018-06-30] MEDS ORDERED: Sodium Chloride 500ML 500 ML IV ONE (16:00)
[2018-06-30 16:23] VITALS: BP 107/55
[2018-06-30 20:00] VITALS: BP 84/43
--- NOTE | 2018-06-30 22:45 | Consultation ---
DATE OF CONSULTATION: 06/30/2018 INFECTIOUS DISEASES CONSULT: CONSULTING PHYSICIAN: Joseph Brooks M.D. ATTENDING PHYSICIAN: Jayson Samuel M.D. REFERRING PHYSICIAN: Agustin Heredia M.D. REASON FOR CONSULTATION: Hidradenitis and infected wounds of the bilateral groin and thighs with abscess and cellulitis. CHIEF COMPLAINT: The patient's chief complaint is bilateral infected wounds, and abscess and cellulitis of the groin and thigh secondary to hidradenitis suppurativa. HISTORY OF PRESENT ILLNESS: This is a very pleasant 33-year-old female, who comes in to [facility] because of bilateral groin and thigh hidradenitis suppurativa with infected wounds and abscesses. The patient was admitted for surgical debridement and excision. The patient has been tried on antibiotics without improvement. The patient is status post surgery yesterday on 06/29/2018, which included radical excision and debridement of the left groin and upper thigh and the right groin and upper thigh and also elevation of medial thigh flap for closure. Infectious Disease consult requested for antibiotic management. The patient was initially on vancomycin and Zosyn. The patient had a reaction to vancomycin, which she had itching, it was discontinued. I changed the antibiotics yesterday to Zosyn and Zyvox. I could not see the patient yesterday because she was in the operating room. Today, I followed up and saw the patient. Of note, the patient also right now has what looks like possible acute kidney injury with creatinine of up to 2.5. Case communicated with Dr. Heredia. The patient had also initial leukocytosis, positive urinalysis, and test is negative. The patient will be continued on Zosyn and Zyvox for now. MAR was noted. Orders were noted. Notes were reviewed. REVIEW OF SYSTEMS: CONSTITUTIONAL: The patient has no complaints except for the abscesses and wounds and hidradenitis of the bilateral groin and thighs. She denies any fever or chills. No mention of night sweats. HEAD AND NECK: No mention of headache, change in vision, or neck stiffness. CARDIAC: No chest pain. GASTROINTESTINAL: No nausea, vomiting, or diarrhea. GENITOURINARY: She did not mention dysuria or frequency or CVA tenderness. PULMONARY: No congestion, shortness of breath, hemoptysis, or secretions. SKIN: No rash or itching. She has had bilateral groin and thigh hidradenitis suppurativa infection with abscesses and infected wounds. NEUROLOGIC: No seizures. PAST MEDICAL HISTORY: The patient's medical history includes the following. The patient has hidradenitis suppurativa. She denies any other significant past medical history. No history of diabetes or hypertension. ALLERGIES: Include vancomycin in which she gets severe itching. SOCIAL HISTORY: Negative for smoking, alcohol, or drug abuse. FAMILY HISTORY: Noncontributory. MEDICATIONS: Upon reviewing the MAR, she is on following medications. She is on subcutaneous heparin, linezolid, Zosyn, zolpidem or Ambien, IV fluids, acetaminophen, Zofran, hydromorphone as needed, diphenhydramine, Zyvox, and antibiotics. She is also on Senokot and morphine. I do not believe she has taken any medications except for further antibiotics she sometimes took prior to admission at this time. PHYSICAL EXAMINATION: VITAL SIGNS: Temperature 99.0, no significant temperature spikes, pulse rate is 74, respiratory rate 18, blood pressure 105/58, and saturation 98%. GENERAL: Alert, responsive, oriented x3. No acute distress. HEAD AND NECK: Oral exam, no thrush. Eye exam, no icterus. Neck is supple. No JVD. Normocephalic. HEART: Regular. No gallop or murmur. ABDOMEN: Soft. Positive bowel sounds. Nontender. LUNGS: Clear bilaterally. No rhonchi or rales. SKIN: No rash. Wounds are covered in the groin and thighs bilaterally after surgery. MUSCULOSKELETAL: No evidence of septic arthritis. No effusion. LINES: Line sites are without phlebitis. PERIPHERAL VASCULAR: No cyanosis. GENITOURINARY: Has no Samson. NEUROLOGIC: Intact. LABORATORY DATA: Creatinine is 2.5, it was baseline of 0.8. White count 8.7 and hemoglobin 0.3. White count as high as 14.4 yesterday. Urinalysis had 10 to 15 white cells. Urine culture is mixed organisms. IMAGING STUDIES: Chest x-ray, baseline was negative. No acute findings. ASSESSMENT AND PLAN: 1. The patient has hidradenitis suppurativa with abscesses and infected wounds of the bilateral groin and thighs. The patient is status post excision and debridement. The patient is planned for flap closure. The patient had allergic reaction to vancomycin, which was discontinued. The patient currently is on Zosyn and Zyvox for polymicrobial coverage including gram negatives, anaerobic, and also gram-positive. Of note, the patient also with looks like she has possibly developed acute renal failure. Continue Zosyn and Zyvox for now. Avoid nephrotoxic drugs. Case communicated with Dr. Heredia about the renal failure. Further treatment per Dr. Banegas from surgery for what looks like wound closure. Watch labs closely. 2. The patient has a possible acute renal failure. Monitor closely. 3. Leukocytosis, resolved. 4. Question UTI with positive urinalysis, urine culture mixed organisms. 5. The patient currently has anemia. 6. Allergies, vancomycin. 7. Social history is negative. 8. Family history is noncontributory. 9. MAR was noted. 10. Case discussed with RN. 11. Continue treatment per primary consultants. 12. Notes and records were noted. 13. Orders were entered. Joseph Brooks M.D. DR: MARYBETH JOB#: [id number] CC:
[2018-07-01] VITALS: BP 96/52
[2018-07-01] MEDS: D5 1/2NS 1,000 ML IV SCH (00:33)
[2018-07-01 04:00] VITALS: BP 105/53
[2018-07-01] MEDS ORDERED: EPINEPHrine 1mg/1ml Amp ONE (06:47)
[2018-07-01] MEDS ORDERED: NeoSporin Gu Irrig 1ml Amp IRRIG ONE (06:48)
[2018-07-01] MEDS ORDERED: Bacitracin 50000 Units Vial ONE (06:48)
[2018-07-01] MEDS: PCA shift volume MISC SCH (07:13)
[2018-07-01 07:16] LABS: BASOPHILS % (AUTO) 0.4 % (0.0-2.0); EOSINOPHILS % (AUTO) 0.5 % (0.0-3.0); HEMATOCRIT 31.1 % (37.0-47.0); HEMOGLOBIN 10.6 G/DL (12.0-16.0); LYMPHOCYTES % (AUTO) 12.7 % (20.0-45.0); MEAN CORPUSCULAR VOLUME 85 FL (80-99); MONOCYTES % (AUTO) 8.9 % (1.0-10.0); NEUTROPHILS % (AUTO) 77.6 % (45.0-75.0); PLATELET COUNT 136 K/UL (150-450); RED BLOOD COUNT 3.67 M/UL (4.20-5.40); RED CELL DISTRIBUTION WIDTH 10.8 % (11.6-14.8)
[2018-07-01 07:20] LABS: ALANINE AMINOTRANSFERASE 12 U/L (12-78); ALBUMIN 2.8 G/DL (3.4-5.0); ALBUMIN/GLOBULIN RATIO 0.8 (1.0-2.7); ALKALINE PHOSPHATASE 38 U/L (46-116); ANION GAP 8 mmol/L (5-15); ASPARTATE AMINO TRANSFERASE 16 U/L (15-37); BILIRUBIN,TOTAL 0.3 MG/DL (0.2-1.0); BLOOD UREA NITROGEN 9 mg/dL (7-18); CARBON DIOXIDE 26 MMOL/L (21-32); CHLORIDE 104 MMOL/L (98-107); CHOLESTEROL 131 MG/DL (< 200); CREATININE 2.3 MG/DL (0.55-1.30); GAMMA GLUTAMYL TRANSPEPTIDASE 18 U/L (5-85); HDL CHOLESTEROL 51 MG/DL (40-60); PHOSPHORUS 3.6 MG/DL (2.5-4.9); SODIUM 138 MMOL/L (136-145); TRIGLYCERIDES 78 MG/DL (30-150)
--- NOTE | 2018-07-01 07:34 | General Progress Note ---
Progress Note Progress Note Pt seen and examined. Was scheduled for surgery this AM. However the Toolmaker Grade Three bumped to 2.5 yesterday and is down to 2.3 today but still too high for surgery/anesthesia. Will get renal to see the patient and delay the case till this weekend. Possibly will go tomorrow depending on the Toolmaker Grade Three in AM. Davina Banegas M.D. Davina Banegas MD Jul 01, 2018 07:34
[2018-07-01 08:00] VITALS: BP 113/58
[2018-07-01 08:07] LABS: % IRON SATURATION 23 % (15-50); IRON 50 ug/dL (50-175); TOTAL IRON BINDING CAPACITY 215 ug/dL (250-450)
[2018-07-01] MEDS: Piperacillin/Tazobactam 3.375 GM in D5W 110 ML IVPB SCH ×2 (09:00→20:32)
[2018-07-01] MEDS: Heparin 5000 units/ml inj SUBQ SCH ×2 (09:00→20:40)
[2018-07-01 12:00] VITALS: BP 115/62
--- NOTE | 2018-07-01 12:23 | General Progress Note ---
Assessment/Plan Problem List: (1) Pain ICD Codes: R52 - Pain, unspecified SNOMED: 66892380 (2) Cellulitis ICD Codes: L03.90 - Cellulitis, unspecified SNOMED: 651846413 (3) Abscess ICD Codes: L02.91 - Cutaneous abscess, unspecified SNOMED: 167140770 (4) Hidradenitis suppurativa ICD Codes: L73.2 - Hidradenitis suppurativa SNOMED: 94121504 Status: stable Assessment/Plan #Abscess #Cellulitis #Hidradenitis Suppurative #Pain #allergic reaction to vancomycin #LIANA - Cr 2.3 now , nephrology consulted, started on hydration, repeat Cr this evening and early tomorrow morning Plan: s/p excision 06/29/18, plan to OR for closure tomorrow, surgery held today due to LIANA without significant improvement pending nephro recs cont abx per ID recs noted to have worsening renal function, new LIANA, nephro consulted, IVF continue excellent post op care prophylactic anticoagulation per surgery, Incentive Spirometry, abx iv, pain control ppx: scd diet: npo, resume diet postop. [facility] will required an estimated 3-5 midnights stay due to antibiotic management along with procedures required by plastic surgery. I spent over 50 minutes on this patient's case, and over 35 minutes was dedicated to counseling and/or care coordination. Subjective Date patient seen: Jul 01, 2018 Time patient seen: 05:45 Allergies: Coded Allergies: VANCOMYCIN (Verified Allergy, Mild, Itching, 06/29/18) Subjective f/u inguinal abscesses with surrounding cellulitis concerns for hydradenitis suppurativa denies any fevers/chills states pain is well controlled doing well postop, denies any complaints no acute events overnight planned for surgery today however due to LIANA patient's surgery was held. Repeat Cr 2.3 from 2.5, nephro consulted and aware. planned for OR tomorrow if renal fxn improved 14 point ROS reviewed and negative except for the above Objective Last 24 Hour Vital Signs Date Time Temp Pulse Resp B/P (MAP) Pulse Ox O2 Delivery O2 Flow Rate FiO2 07/01/18 09:00 Room Air 07/01/18 08:00 98.9 53 20 113/58 (76) 99 07/01/18 04:00 98.7 55 18 105/53 (70) 97 07/01/18 04:00 18 07/01/18 00:00 98.7 53 18 96/52 (67) 98 07/01/18 00:00 18 06/30/18 21:00 Room Air 06/30/18 20:00 99.1 18 18 84/43 (57) 97 06/30/18 20:00 18 06/30/18 16:23 97.8 18 18 107/55 (72) 97 06/30/18 16:00 18 06/30/18 12:50 99.0 18 18 105/58 (74) Intake and Output 06/30/18 07/01/18 19:00 07:00 Intake Total 510.0 ml Output Total 500 ml 500 ml Balance -500 ml 10.0 ml Intake Oral 400 ml IV Total 110.0 ml Output Urine Total 500 ml 500 ml Laboratory Tests 06/30/18 17:05: Urine Random Sodium < 20L 07/01/18 04:10: Urine Eosinophils None seen 07/01/18 05:10: White Blood Count 9.0, Red Blood Count 3.67L, Hemoglobin 10.6L, Hematocrit 31.1L , Mean Corpuscular Volume 85, Mean Corpuscular Hemoglobin 28.8, Mean Corpuscular Hemoglobin Concent 34.0, Red Cell Distribution Width 10.8L, Platelet Count 136L, Mean Platelet Volume 7.1, Neutrophils (%) (Auto) 77.6H, Lymphocytes (%) (Auto) 12.7L, Monocytes (%) (Auto) 8.9, Eosinophils (%) (Auto) 0.5, Basophils (%) (Auto) 0.4, Sodium Level 138, Potassium Level 3.0L, Chloride Level 104, Carbon Dioxide Level 26, Anion Gap 8, Blood Urea Nitrogen 9, Creatinine 2.3H, Estimat Glomerular Filtration Rate 24.6, Glucose Level 116H, Uric Acid 4.6, Calcium Level 8.0L, Phosphorus Level 3.6, Magnesium Level 1.6L, Iron Level 50, Total Iron Binding Capacity 215L, Percent Iron Saturation 23, Unsaturated Iron Binding 165, Total Bilirubin 0.3, Gamma Glutamyl Transpeptidase 18, Aspartate Amino Transf (AST/SGOT) 16, Alanine Aminotransferase (ALT/SGPT) 12, Alkaline Phosphatase 38L, Total Protein 6.1L, Albumin 2.8L, Globulin 3.3, Albumin/Globulin Ratio 0.8L, Triglycerides Level 78 , Cholesterol Level 131, LDL Cholesterol 78, HDL Cholesterol 51, Cholesterol/ HDL Ratio 2.6L, Vitamin B12 Level 1440H, Folate 19.7 Height (Feet): 5 Height (Inches): 8.00 Weight (Pounds): 140 General Appearance: no apparent distress, alert, lethargic EENT: PERRL/EOMI, normal ENT inspection, TMs normal Neck: non-tender, normal alignment, supple, normal inspection Cardiovascular: normal peripheral pulses, normal rate, regular rhythm Respiratory/Chest: chest wall non-tender, lungs clear, normal breath sounds, no respiratory distress, no accessory muscle use Abdomen: normal bowel sounds, non tender, soft, no organomegaly, no mass 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
--- NOTE | 2018-07-01 12:59 | Consultation ---
Consult Note Consult Note Asked to eval for rising Cr Cr 1.2 up to 2.5 33-year-old female patient presents the ER complaining of bilateral hidradenitis suppurativa. Patient was referred to the ER by her doctor for evaluation of her hidradenitis vs possible abscess. Patient states has been present for several years, states pain has become increased in the past few days. Reports has taken abx previously and symptoms did not improve. Patient reports wounds are on her bilateral inner thighs. Patient reports wound on the left thigh is more painful, states drained recently. Patient reports she normally takes Tylenol for pain. Denies fever, chest pain, shortness of breath , vomiting. Denies pain with defecation. Denies dysuria hematuria. Allergies: Coded Allergies: VANCOMYCIN (Verified Allergy, Mild, Itching, 06/29/18) interviewed- examined data reviewed Assessment/Plan acute renal failure Hypotension Pain Cellulitis Abcess / Hidradenitis suppurativea UTI K and Mag supplement as needed Vigourous hydration NS and Albumin bolus Urine studies Avoid Nephrotoxics Monitor renal parameters On Zosyn and Zivox Ilan Nelson MD Jul 01, 2018 12:59
[2018-07-01 16:00] VITALS: BP 108/66
[2018-07-01] MEDS: Morphine Sulfate 4mg/ml Inj (IV/IM USE ONLY) IVP PRN ×2 (16:51→21:09)
[2018-07-01] MEDS ORDERED: NS 500ML ONE (17:38)
[2018-07-01] MEDS ORDERED: Tubing IV Secondary IV ONE (17:38)
[2018-07-01 19:17] LABS: ANION GAP 7 mmol/L (5-15); BLOOD UREA NITROGEN 8 mg/dL (7-18); CALCIUM 8.2 MG/DL (8.5-10.1); CARBON DIOXIDE 26 MMOL/L (21-32); CHLORIDE 104 MMOL/L (98-107); POTASSIUM 3.9 MMOL/L (3.5-5.1); SODIUM 137 MMOL/L (136-145)
[2018-07-01 20:00] VITALS: BP 102/63
[2018-07-02] VITALS: BP 104/59
[2018-07-02 04:00] VITALS: BP 103/64
[2018-07-02 05:41] LABS: BASOPHILS % (AUTO) 0.5 % (0.0-2.0); EOSINOPHILS % (AUTO) 0.8 % (0.0-3.0); HEMATOCRIT 31.1 % (37.0-47.0); HEMOGLOBIN 10.4 G/DL (12.0-16.0); LYMPHOCYTES % (AUTO) 13.2 % (20.0-45.0); MEAN CORPUSCULAR VOLUME 85 FL (80-99); MONOCYTES % (AUTO) 7.3 % (1.0-10.0); NEUTROPHILS % (AUTO) 78.1 % (45.0-75.0); PLATELET COUNT 145 K/UL (150-450); RED BLOOD COUNT 3.66 M/UL (4.20-5.40); RED CELL DISTRIBUTION WIDTH 10.8 % (11.6-14.8); WHITE BLOOD COUNT 8.1 K/UL (4.8-10.8)
[2018-07-02 06:00] LABS: ALANINE AMINOTRANSFERASE 18 U/L (12-78); ALBUMIN 3.1 G/DL (3.4-5.0); ALKALINE PHOSPHATASE 36 U/L (46-116); ANION GAP 5 mmol/L (5-15); ASPARTATE AMINO TRANSFERASE 13 U/L (15-37); BILIRUBIN,TOTAL 0.5 MG/DL (0.2-1.0); BLOOD UREA NITROGEN 8 mg/dL (7-18); CARBON DIOXIDE 27 MMOL/L (21-32); CHLORIDE 106 MMOL/L (98-107); PHOSPHORUS 2.9 MG/DL (2.5-4.9); POTASSIUM 3.7 MMOL/L (3.5-5.1); SODIUM 138 MMOL/L (136-145)
[2018-07-02 08:00] VITALS: BP 124/70
[2018-07-02] MEDS: Piperacillin/Tazobactam 3.375 GM in D5W 110 ML IVPB SCH ×2 (08:31→20:15)
[2018-07-02] MEDS: Heparin 5000 units/ml inj SUBQ SCH ×2 (08:33→20:29)
--- NOTE | 2018-07-02 08:44 | General Progress Note ---
Progress Note Progress Note Pt seen and examined. Treatment Specialist is still elevated at 2. Will continue to hydrate and check labs in AM. Plan for surgery on Wednesday. Davina Banegas M.D. Davina Banegas MD Jul 02, 2018 08:44
--- NOTE | 2018-07-02 11:58 | Nephrology Progress Note ---
Assessment/Plan Problem List: (1) Acute renal failure (2) UTI (urinary tract infection) (3) Hidradenitis suppurativa (4) Cellulitis Assessment acute renal failure Hypotension Pain Cellulitis Abcess / Hidradenitis suppurativea UTI Plan K and Mag supplement as needed Vigourous hydration NS and Albumin bolus Urine studies Avoid Nephrotoxics Monitor renal parameters On Zosyn and Zivox Subjective ROS Limited/Unobtainable: No Objective Objective Last 24 Hour Vital Signs Date Time Temp Pulse Resp B/P (MAP) Pulse Ox O2 Delivery O2 Flow Rate FiO2 07/02/18 04:00 98.2 55 18 103/64 (77) 99 07/02/18 00:00 98.2 56 18 104/59 (74) 100 07/01/18 21:00 Room Air 07/01/18 20:00 98.4 58 18 102/63 (76) 100 07/01/18 16:00 98.9 63 20 108/66 (80) 100 07/01/18 12:00 97.8 56 20 115/62 (79) 100 Intake and Output 07/01/18 07/02/18 18:59 06:59 Intake Total 820 ml Output Total 1400 ml 1100 ml Balance -580 ml -1100 ml Intake Oral 820 ml Output Urine Total 1400 ml 1100 ml Laboratory Tests 07/01/18 18:20: Sodium Level 137, Potassium Level 3.9, Chloride Level 104, Carbon Dioxide Level 26, Anion Gap 7, Blood Urea Nitrogen 8, Creatinine 2.0H, Estimat Glomerular Filtration Rate 28.9, Glucose Level 121H, Calcium Level 8.2L 07/02/18 04:00: Urine Eosinophils None seen 07/02/18 05:25: Sodium Level 138, Potassium Level 3.7, Chloride Level 106, Carbon Dioxide Level 27, Anion Gap 5, Blood Urea Nitrogen 8, Creatinine 2.0H, Estimat Glomerular Filtration Rate 28.9, Glucose Level 129H, Calcium Level 8.0L, White Blood Count 8.1, Red Blood Count 3.66L, Hemoglobin 10.4L, Hematocrit 31.1L, Mean Corpuscular Volume 85, Mean Corpuscular Hemoglobin 28.5, Mean Corpuscular Hemoglobin Concent 33.5, Red Cell Distribution Width 10.8L, Platelet Count 145L , Mean Platelet Volume 6.7, Neutrophils (%) (Auto) 78.1H, Lymphocytes (%) (Auto ) 13.2L, Monocytes (%) (Auto) 7.3, Eosinophils (%) (Auto) 0.8, Basophils (%) ( Auto) 0.5, Phosphorus Level 2.9, Magnesium Level 2.5H, Total Bilirubin 0.5, Aspartate Amino Transf (AST/SGOT) 13L, Alanine Aminotransferase (ALT/SGPT) 18, Alkaline Phosphatase 36L, C-Reactive Protein, Quantitative 0.5, Total Protein 6.3L, Albumin 3.1L, Globulin 3.2, Albumin/Globulin Ratio 1.0 Height (Feet): 5 Height (Inches): 8.00 Weight (Pounds): 140 General Appearance: no apparent distress Objective no change Ilna Nelson MD Jul 02, 2018 11:58
[2018-07-02 12:00] VITALS: BP 109/60
[2018-07-02 14:41] LABS: APPEARANCE,URINE SLIGHTLY CLOUDY; BILIRUBIN, URINE NEGATIVE (NEGATIVE); COLOR,URINE PALE YELLOW; GLUCOSE, URINE (UA) NEGATIVE (NEGATIVE); KETONES,URINE NEGATIVE (NEGATIVE); LEUKOCYTE ESTERASE ,URINE 3+ (NEGATIVE); NITRITE,URINE NEGATIVE (NEGATIVE); PH,URINE 5 (4.5-8.0); PROTEIN,URINE 2+ (NEGATIVE); UROBILINOGEN,URINE NORMAL MG/DL (0.0-1.0)
[2018-07-02 16:00] VITALS: BP 110/62
--- NOTE | 2018-07-02 17:21 | Infectious Diseases Prog Note ---
Assessment/Plan Assessment/Plan ASSESSMENT AND PLAN: 1. bilateral groin/thigh abscesses/wound infection/hidradenitis suppurativa - zyvox and zosyn - allergies - vancomycin - s/p excision and debridement - plan on wound closure once creatinine improves - wound care per surgery - monitor labs 2. ARF - renal f/u, monitor creatinine, avoid nephrotoxic abx 3. Leukocytosis - resolved. 4. Question UTI with positive urinalysis, urine culture mixed organisms - on zosyn 5. The patient currently has anemia. 6. Allergies, vancomycin. 7. Social history is negative. 8. Family history is noncontributory. 9. MAR was noted. 10. Case discussed with RN. 11. Continue treatment per primary consultants. 12. Notes and records were noted. 13. Orders were entered. Subjective Constitutional: Denies: fever HEENT: Denies: congestion Respiratory: Denies: shortness of breath Cardiovascular: Denies: chest pain Gastrointestinal/Abdominal: Denies: nausea, vomiting, diarrhea Genitourinary: Reports: other - + cohen, no cva pain Neurologic: Denies: headache Psychiatric: Denies: depression Skin: Denies: rash Hematologic: Denies: bleeding Musculoskeletal: Denies: pain Allergies: Coded Allergies: VANCOMYCIN (Verified Allergy, Mild, Itching, 06/29/18) Objective Vital Signs Last 24 Hour Vital Signs Date Time Temp Pulse Resp B/P (MAP) Pulse Ox O2 Delivery O2 Flow Rate FiO2 07/02/18 04:00 98.2 55 18 103/64 (77) 99 07/02/18 00:00 98.2 56 18 104/59 (74) 100 07/01/18 21:00 Room Air 07/01/18 20:00 98.4 58 18 102/63 (76) 100 Height (Feet): 5 Height (Inches): 8.00 Weight (Pounds): 140 General Appearance: no acute distress HEENT: normocephalic, atraumatic, anicteric, mucous membranes moist Respiratory/Chest: lungs clear, normal breath sounds, no respiratory distress, no accessory muscle use Cardiovascular: normal rate, regular rhythm, no gallop/murmur, no JVD Abdomen: normal bowel sounds, soft, non tender, no organomegaly, non distended Genitourinary: other - + cohen - urine clear Extremities: no cyanosis Skin: no rash, other - wounds - covered 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, alert, oriented x 3, responsive Lymphatic: no neck adenopathy Musculoskeletal: no effusion Objective Labs Test 06/30/18 07:00 06/30/18 17:05 07/01/18 04:10 07/01/18 05:10 White Blood Count 8.7 K/UL (4.8-10.8) 9.0 K/UL (4.8-10.8) Red Blood Count 3.92 M/UL (4.20-5.40) 3.67 M/UL (4.20-5.40) Hemoglobin 11.3 G/DL (12.0-16.0) 10.6 G/DL (12.0-16.0) Hematocrit 33.8 % (37.0-47.0) 31.1 % (37.0-47.0) Mean Corpuscular Volume 86 FL (80-99) 85 FL (80-99) Mean Corpuscular Hemoglobin 28.9 PG (27.0-31.0) 28.8 PG (27.0-31.0) Mean Corpuscular Hemoglobin Concent 33.5 G/DL (32.0-36.0) 34.0 G/DL (32.0-36.0) Red Cell Distribution Width 11.2 % (11.6-14.8) 10.8 % (11.6-14.8) Platelet Count 162 K/UL (150-450) 136 K/UL (150-450) Mean Platelet Volume 7.2 FL (6.5-10.1) 7.1 FL (6.5-10.1) Neutrophils (%) (Auto) 73.8 % (45.0-75.0) 77.6 % (45.0-75.0) Lymphocytes (%) (Auto) 16.8 % (20.0-45.0) 12.7 % (20.0-45.0) Monocytes (%) (Auto) 8.5 % (1.0-10.0) 8.9 % (1.0-10.0) Eosinophils (%) (Auto) 0.6 % (0.0-3.0) 0.5 % (0.0-3.0) Basophils (%) (Auto) 0.5 % (0.0-2.0) 0.4 % (0.0-2.0) Sodium Level 139 MMOL/L (136-145) 138 MMOL/L (136-145) Potassium Level 3.7 MMOL/L (3.5-5.1) 3.0 MMOL/L (3.5-5.1) Chloride Level 104 MMOL/L (98-107) 104 MMOL/L (98-107) Carbon Dioxide Level 27 MMOL/L (21-32) 26 MMOL/L (21-32) Anion Gap 8 mmol/L (5-15) 8 mmol/L (5-15) Blood Urea Nitrogen 12 mg/dL (7-18) 9 mg/dL (7-18) Creatinine 2.5 MG/DL (0.55-1.30) 2.3 MG/DL (0.55-1.30) Estimat Glomerular Filtration Rate 22.3 mL/min (>60) 24.6 mL/min (>60) Glucose Level 100 MG/DL (74-106) 116 MG/DL (74-106) Calcium Level 8.2 MG/DL (8.5-10.1) 8.0 MG/DL (8.5-10.1) C-Reactive Protein, Quantitative 0.7 mg/dL (0.00-0.90) Urine Random Sodium < 20 mmol/L (20-110) Urine Eosinophils None seen (NONE SEEN) Uric Acid 4.6 MG/DL (2.6-7.2) Phosphorus Level 3.6 MG/DL (2.5-4.9) Magnesium Level 1.6 MG/DL (1.8-2.4) Iron Level 50 ug/dL (50-175) Total Iron Binding Capacity 215 ug/dL (250-450) Percent Iron Saturation 23 % (15-50) Unsaturated Iron Binding 165 ug/dL (112-346) Total Bilirubin 0.3 MG/DL (0.2-1.0) Gamma Glutamyl Transpeptidase 18 U/L (5-85) Aspartate Amino Transf (AST/SGOT) 16 U/L (15-37) Alanine Aminotransferase (ALT/SGPT) 12 U/L (12-78) Alkaline Phosphatase 38 U/L (46-116) Total Protein 6.1 G/DL (6.4-8.2) Albumin 2.8 G/DL (3.4-5.0) Globulin 3.3 g/dL Albumin/Globulin Ratio 0.8 (1.0-2.7) Triglycerides Level 78 MG/DL (30-150) Cholesterol Level 131 MG/DL (< 200) LDL Cholesterol 78 mg/dL (<100) HDL Cholesterol 51 MG/DL (40-60) Cholesterol/HDL Ratio 2.6 (3.3-4.4) Vitamin B12 Level 1440 PG/ML (193-986) Folate 19.7 NG/ML (8.6-58.9) Test 07/01/18 18:20 07/02/18 04:00 07/02/18 05:25 07/02/18 14:20 Sodium Level 137 MMOL/L (136-145) 138 MMOL/L (136-145) Potassium Level 3.9 MMOL/L (3.5-5.1) 3.7 MMOL/L (3.5-5.1) Chloride Level 104 MMOL/L (98-107) 106 MMOL/L (98-107) Carbon Dioxide Level 26 MMOL/L (21-32) 27 MMOL/L (21-32) Anion Gap 7 mmol/L (5-15) 5 mmol/L (5-15) Blood Urea Nitrogen 8 mg/dL (7-18) 8 mg/dL (7-18) Creatinine 2.0 MG/DL (0.55-1.30) 2.0 MG/DL (0.55-1.30) Estimat Glomerular Filtration Rate 28.9 mL/min (>60) 28.9 mL/min (>60) Glucose Level 121 MG/DL (74-106) 129 MG/DL (74-106) Calcium Level 8.2 MG/DL (8.5-10.1) 8.0 MG/DL (8.5-10.1) Urine Eosinophils None seen (NONE SEEN) White Blood Count 8.1 K/UL (4.8-10.8) Red Blood Count 3.66 M/UL (4.20-5.40) Hemoglobin 10.4 G/DL (12.0-16.0) Hematocrit 31.1 % (37.0-47.0) Mean Corpuscular Volume 85 FL (80-99) Mean Corpuscular Hemoglobin 28.5 PG (27.0-31.0) Mean Corpuscular Hemoglobin Concent 33.5 G/DL (32.0-36.0) Red Cell Distribution Width 10.8 % (11.6-14.8) Platelet Count 145 K/UL (150-450) Mean Platelet Volume 6.7 FL (6.5-10.1) Neutrophils (%) (Auto) 78.1 % (45.0-75.0) Lymphocytes (%) (Auto) 13.2 % (20.0-45.0) Monocytes (%) (Auto) 7.3 % (1.0-10.0) Eosinophils (%) (Auto) 0.8 % (0.0-3.0) Basophils (%) (Auto) 0.5 % (0.0-2.0) Phosphorus Level 2.9 MG/DL (2.5-4.9) Magnesium Level 2.5 MG/DL (1.8-2.4) Total Bilirubin 0.5 MG/DL (0.2-1.0) Aspartate Amino Transf (AST/SGOT) 13 U/L (15-37) Alanine Aminotransferase (ALT/SGPT) 18 U/L (12-78) Alkaline Phosphatase 36 U/L (46-116) C-Reactive Protein, Quantitative 0.5 mg/dL (0.00-0.90) Total Protein 6.3 G/DL (6.4-8.2) Albumin 3.1 G/DL (3.4-5.0) Globulin 3.2 g/dL Albumin/Globulin Ratio 1.0 (1.0-2.7) Urine Color Pale yellow Urine Appearance Slightly cloudy Urine pH 5 (4.5-8.0) Urine Specific [place] 1.010 (1.005-1.035) Urine Protein 2+ (NEGATIVE) Urine Glucose (UA) Negative (NEGATIVE) Urine Ketones Negative (NEGATIVE) Urine Blood 3+ (NEGATIVE) Urine Nitrite Negative (NEGATIVE) Urine Bilirubin Negative (NEGATIVE) Urine Urobilinogen Normal MG/DL (0.0-1.0) Urine Leukocyte Esterase 3+ (NEGATIVE) Urine RBC 5-10 /HPF (0 - 2) Urine WBC 15-20 /HPF (0 - 2) Urine Squamous Epithelial Cells Occasional /LPF Urine Bacteria Occasional /HPF (NONE) Urine Yeast Many /HPF (NONE) Urine Random Sodium < 20 mmol/L (20-110) Chest x-ray - nad, report noted Microbiology Date/Time Source Procedure Growth Status 06/28/18 13:15 Urine,Clean Catch Urine Culture - Final Mixed Gram Positive Organism Complete Laboratory Tests Test 07/01/18 18:20 07/02/18 04:00 07/02/18 05:25 07/02/18 14:20 Sodium Level 137 MMOL/L (136-145) 138 MMOL/L (136-145) Potassium Level 3.9 MMOL/L (3.5-5.1) 3.7 MMOL/L (3.5-5.1) Chloride Level 104 MMOL/L (98-107) 106 MMOL/L (98-107) Carbon Dioxide Level 26 MMOL/L (21-32) 27 MMOL/L (21-32) Anion Gap 7 mmol/L (5-15) 5 mmol/L (5-15) Blood Urea Nitrogen 8 mg/dL (7-18) 8 mg/dL (7-18) Creatinine 2.0 MG/DL (0.55-1.30) H 2.0 MG/DL (0.55-1.30) H Estimat Glomerular Filtration Rate 28.9 mL/min (>60) 28.9 mL/min (>60) Glucose Level 121 MG/DL (74-106) H 129 MG/DL (74-106) H Calcium Level 8.2 MG/DL (8.5-10.1) L 8.0 MG/DL (8.5-10.1) L Urine Eosinophils None seen (NONE SEEN) White Blood Count 8.1 K/UL (4.8-10.8) Red Blood Count 3.66 M/UL (4.20-5.40) L Hemoglobin 10.4 G/DL (12.0-16.0) L Hematocrit 31.1 % (37.0-47.0) L Mean Corpuscular Volume 85 FL (80-99) Mean Corpuscular Hemoglobin 28.5 PG (27.0-31.0) Mean Corpuscular Hemoglobin Concent 33.5 G/DL (32.0-36.0) Red Cell Distribution Width 10.8 % (11.6-14.8) L Platelet Count 145 K/UL (150-450) L Mean Platelet Volume 6.7 FL (6.5-10.1) Neutrophils (%) (Auto) 78.1 % (45.0-75.0) H Lymphocytes (%) (Auto) 13.2 % (20.0-45.0) L Monocytes (%) (Auto) 7.3 % (1.0-10.0) Eosinophils (%) (Auto) 0.8 % (0.0-3.0) Basophils (%) (Auto) 0.5 % (0.0-2.0) Phosphorus Level 2.9 MG/DL (2.5-4.9) Magnesium Level 2.5 MG/DL (1.8-2.4) H Total Bilirubin 0.5 MG/DL (0.2-1.0) Aspartate Amino Transf (AST/SGOT) 13 U/L (15-37) L Alanine Aminotransferase (ALT/SGPT) 18 U/L (12-78) Alkaline Phosphatase 36 U/L (46-116) L C-Reactive Protein, Quantitative 0.5 mg/dL (0.00-0.90) Total Protein 6.3 G/DL (6.4-8.2) L Albumin 3.1 G/DL (3.4-5.0) L Globulin 3.2 g/dL Albumin/Globulin Ratio 1.0 (1.0-2.7) Urine Color Pale yellow Urine Appearance Slightly cloudy Urine pH 5 (4.5-8.0) Urine Specific [place] 1.010 (1.005-1.035) Urine Protein 2+ (NEGATIVE) H Urine Glucose (UA) Negative (NEGATIVE) Urine Ketones Negative (NEGATIVE) Urine Blood 3+ (NEGATIVE) H Urine Nitrite Negative (NEGATIVE) Urine Bilirubin Negative (NEGATIVE) Urine Urobilinogen Normal MG/DL (0.0-1.0) Urine Leukocyte Esterase 3+ (NEGATIVE) H Urine RBC 5-10 /HPF (0 - 2) H Urine WBC 15-20 /HPF (0 - 2) H Urine Squamous Epithelial Cells Occasional /LPF Urine Bacteria Occasional /HPF (NONE) Urine Yeast Many /HPF (NONE) H Urine Random Sodium < 20 mmol/L (20-110) L Current Medications Medications (Trade) Dose Ordered Sig/Megan Route PRN Reason Start Time Stop Time Status Last Admin Dose Admin Acetaminophen (Tylenol) 650 mg Q4H PRN ORAL FEVER 06/29/18 11:15 07/29/18 11:14 Dextrose/ Electrolytes 1,000 ml @ 125 mls/hr Q8H IV 07/02/18 12:00 08/01/18 11:59 07/02/18 13:40 Diphenhydramine HCl (Benadryl) 25 mg Q6H PRN ORAL Itching 06/29/18 00:15 07/29/18 00:14 06/29/18 00:30 Heparin Sodium (Porcine) (Heparin 5000 units/ml) 5,000 units EVERY 12 HOURS SUBQ 06/29/18 21:00 07/29/18 20:59 07/02/18 08:33 Linezolid 300 ml @ 300 mls/hr EVERY 12 HOURS IVPB 06/29/18 21:00 07/06/18 20:59 07/02/18 08:31 Morphine Sulfate (Morphine Sulfate) 1 mg Q4H PRN IVP pain 07/01/18 16:45 07/08/18 16:44 07/01/18 21:09 Ondansetron HCl (Zofran) 4 mg Q6H PRN IVP Nausea & Vomiting 06/29/18 11:15 07/29/18 11:14 07/01/18 20:32 Pantoprazole (Protonix) 40 mg DAILY ORAL 07/01/18 09:00 07/31/18 08:59 07/02/18 08:34 Piperacillin Sod/ Tazobactam Sod 3.375 gm/Dextrose 110 ml @ 27.5 mls/hr Q12HR IVPB 06/30/18 21:00 07/05/18 14:59 07/02/18 08:31 Sennosides (Senokot) 8.6 mg DAILYPRN PRN ORAL Constipation 06/28/18 13:45 07/28/18 13:44 Zolpidem Tartrate (Ambien) 5 mg DAILYPRN PRN ORAL Insomnia 06/29/18 20:00 07/06/18 19:59 Joseph Brooks MD Jul 02, 2018 17:21
[2018-07-02] MEDS ORDERED: Fluconazole 100mg tab ORAL SCH (17:30)
--- NOTE | 2018-07-02 17:48 | General Progress Note ---
Assessment/Plan Problem List: (1) Pain ICD Codes: R52 - Pain, unspecified SNOMED: 72019222 (2) Cellulitis ICD Codes: L03.90 - Cellulitis, unspecified SNOMED: 644744802 (3) Abscess ICD Codes: L02.91 - Cutaneous abscess, unspecified SNOMED: 879240085 (4) Hidradenitis suppurativa ICD Codes: L73.2 - Hidradenitis suppurativa SNOMED: 98028060 Status: stable Assessment/Plan #Abscess #Cellulitis #Hidradenitis Suppurative #Pain #allergic reaction to vancomycin #LIANA - Cr 2.0 Plan: s/p excision 06/29/18, plan to OR for closure tomorrow, surgery held today due to LIANA without significant improvement pending nephro recs cont abx per ID recs Cr still elevated at 2.0, continue with hydration and encourage eating. , planned for closure wednesday noted to have worsening renal function, new LIANA, nephro consulted, IVF continue excellent post op care prophylactic anticoagulation per surgery, Incentive Spirometry, abx iv, pain control ppx: scd diet: regular [facility] will required an estimated 3-5 midnights stay due to antibiotic management along with procedures required by plastic surgery. I spent over 40 minutes on this patient's case, and over 25 minutes was dedicated to counseling and/or care coordination. Subjective Date patient seen: Jul 02, 2018 Time patient seen: 08:45 Allergies: Coded Allergies: VANCOMYCIN (Verified Allergy, Mild, Itching, 06/29/18) Subjective f/u inguinal abscesses with surrounding cellulitis concerns for hydradenitis suppurativa denies any fevers/chills states pain is well controlled no acute events overnight feels a bit weak due to LIANA patient's surgery was held. planned for OR wednesday 14 point ROS reviewed and negative except for the above Objective Last 24 Hour Vital Signs Date Time Temp Pulse Resp B/P (MAP) Pulse Ox O2 Delivery O2 Flow Rate FiO2 07/02/18 04:00 98.2 55 18 103/64 (77) 99 07/02/18 00:00 98.2 56 18 104/59 (74) 100 07/01/18 21:00 Room Air 07/01/18 20:00 98.4 58 18 102/63 (76) 100 Intake and Output 07/01/18 07/02/18 19:00 07:00 Intake Total 820 ml Output Total 1400 ml 1100 ml Balance -580 ml -1100 ml Intake Oral 820 ml Output Urine Total 1400 ml 1100 ml Laboratory Tests 07/01/18 18:20: Sodium Level 137, Potassium Level 3.9, Chloride Level 104, Carbon Dioxide Level 26, Anion Gap 7, Blood Urea Nitrogen 8, Creatinine 2.0H, Estimat Glomerular Filtration Rate 28.9, Glucose Level 121H, Calcium Level 8.2L 07/02/18 04:00: Urine Eosinophils None seen 07/02/18 05:25: Sodium Level 138, Potassium Level 3.7, Chloride Level 106, Carbon Dioxide Level 27, Anion Gap 5, Blood Urea Nitrogen 8, Creatinine 2.0H, Estimat Glomerular Filtration Rate 28.9, Glucose Level 129H, Calcium Level 8.0L, White Blood Count 8.1, Red Blood Count 3.66L, Hemoglobin 10.4L, Hematocrit 31.1L, Mean Corpuscular Volume 85, Mean Corpuscular Hemoglobin 28.5, Mean Corpuscular Hemoglobin Concent 33.5, Red Cell Distribution Width 10.8L, Platelet Count 145L , Mean Platelet Volume 6.7, Neutrophils (%) (Auto) 78.1H, Lymphocytes (%) (Auto ) 13.2L, Monocytes (%) (Auto) 7.3, Eosinophils (%) (Auto) 0.8, Basophils (%) ( Auto) 0.5, Phosphorus Level 2.9, Magnesium Level 2.5H, Total Bilirubin 0.5, Aspartate Amino Transf (AST/SGOT) 13L, Alanine Aminotransferase (ALT/SGPT) 18, Alkaline Phosphatase 36L, C-Reactive Protein, Quantitative 0.5, Total Protein 6.3L, Albumin 3.1L, Globulin 3.2, Albumin/Globulin Ratio 1.0 07/02/18 14:20: Urine Color Pale yellow, Urine Appearance Slightly cloudy, Urine pH 5, Urine Specific [place] 1.010, Urine Protein 2+H, Urine Glucose (UA) Negative, Urine Ketones Negative, Urine Blood 3+H, Urine Nitrite Negative, Urine Bilirubin Negative, Urine Urobilinogen Normal, Urine Leukocyte Esterase 3+H, Urine RBC 5- 10H, Urine WBC 15-20H, Urine Squamous Epithelial Cells Occasional, Urine Bacteria Occasional, Urine Yeast ManyH, Urine Random Sodium < 20L Height (Feet): 5 Height (Inches): 8.00 Weight (Pounds): 140 General Appearance: no apparent distress, alert EENT: PERRL/EOMI, normal ENT inspection, TMs normal Neck: non-tender, normal alignment, supple Cardiovascular: normal peripheral pulses, normal rate, regular rhythm Respiratory/Chest: chest wall non-tender, lungs clear, normal breath sounds, no respiratory distress Abdomen: normal bowel sounds, non tender, soft, no organomegaly, no mass Extremities: normal range of motion, non-tender, normal inspection 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
[2018-07-02] MEDS ORDERED: Miralax 17gm pkt ORAL PRN (18:00)
[2018-07-02 20:00] VITALS: BP 101/58
[2018-07-03] VITALS (7 sets, daily range): BP systolic 94–125; BP diastolic 62–78
[2018-07-03] MEDS: Morphine Sulfate 4mg/ml Inj (IV/IM USE ONLY) IVP PRN ×2 (05:12→20:47)
[2018-07-03 07:35] LABS: BASOPHILS % (AUTO) 0.4 % (0.0-2.0); EOSINOPHILS % (AUTO) 0.7 % (0.0-3.0); HEMATOCRIT 29.5 % (37.0-47.0); HEMOGLOBIN 10.1 G/DL (12.0-16.0); LYMPHOCYTES % (AUTO) 12.1 % (20.0-45.0); MEAN CORPUSCULAR VOLUME 85 FL (80-99); MONOCYTES % (AUTO) 7.3 % (1.0-10.0); NEUTROPHILS % (AUTO) 79.5 % (45.0-75.0); PLATELET COUNT 145 K/UL (150-450); RED BLOOD COUNT 3.48 M/UL (4.20-5.40); RED CELL DISTRIBUTION WIDTH 11.2 % (11.6-14.8); WHITE BLOOD COUNT 8.3 K/UL (4.8-10.8)
[2018-07-03 07:47] LABS: ALANINE AMINOTRANSFERASE 16 U/L (12-78); ALBUMIN 2.9 G/DL (3.4-5.0); ALBUMIN/GLOBULIN RATIO 0.9 (1.0-2.7); ALKALINE PHOSPHATASE 36 U/L (46-116); ANION GAP 8 mmol/L (5-15); ASPARTATE AMINO TRANSFERASE 18 U/L (15-37); BILIRUBIN,TOTAL 0.4 MG/DL (0.2-1.0); BLOOD UREA NITROGEN 5 mg/dL (7-18); CALCIUM 7.7 MG/DL (8.5-10.1); CARBON DIOXIDE 25 MMOL/L (21-32); CHLORIDE 107 MMOL/L (98-107); CREATININE 1.6 MG/DL (0.55-1.30); POTASSIUM 4.1 MMOL/L (3.5-5.1); SODIUM 140 MMOL/L (136-145)
[2018-07-03 07:50] LABS: PHOSPHORUS 2.5 MG/DL (2.5-4.9)
--- NOTE | 2018-07-03 08:58 | General Progress Note ---
Progress Note Progress Note Pt seen and examined. Doing well. Dressing changed. [employer] Programmer Analyst is down to 1.6 and we will proceed with surgery in AM. NPO after MN. Davina Banegas M.D. Davina Banegas MD Jul 03, 2018 08:58
[2018-07-03] MEDS: Heparin 5000 units/ml inj SUBQ SCH ×2 (09:00→20:37)
[2018-07-03] MEDS: Piperacillin/Tazobactam 3.375 GM in D5W 110 ML IVPB SCH ×2 (09:11→20:48)
--- NOTE | 2018-07-03 09:18 | Consultation ---
History of Present Illness General Date patient seen: Jul 03, 2018 Chief Complaint: General Complaint Present Illness Allergies: Coded Allergies: VANCOMYCIN (Verified Allergy, Mild, Itching, 06/29/18) Medication History No Active Prescriptions or Reported Meds Patient History Healthcare decision maker [place] Resuscitation status Full Code Advanced Directive on File Physical Exam Last 24 Hour Vital Signs Date Time Temp Pulse Resp B/P (MAP) Pulse Ox O2 Delivery O2 Flow Rate FiO2 07/03/18 04:00 99.6 60 18 118/78 (91) 96 07/03/18 00:00 99.3 70 18 94/66 (75) 96 07/02/18 21:00 Room Air 07/02/18 20:00 99.6 66 18 101/58 (72) 96 07/02/18 16:00 98.4 76 18 110/62 (78) 100 07/02/18 12:00 98.2 83 18 109/60 (76) 100 Intake and Output 07/02/18 07/03/18 19:00 07:00 Intake Total 2275 ml 1187.5 ml Output Total 800 ml 700 ml Balance 1475 ml 487.5 ml Intake Oral 650 ml IV Total 1625 ml 1187.5 ml Output Urine Total 800 ml 700 ml Laboratory Tests Test 07/02/18 14:20 07/03/18 03:50 07/03/18 06:30 Urine Color Pale yellow Urine Appearance Slightly cloudy Urine pH 5 (4.5-8.0) Urine Specific [place] 1.010 (1.005-1.035) Urine Protein 2+ (NEGATIVE) H Urine Glucose (UA) Negative (NEGATIVE) Urine Ketones Negative (NEGATIVE) Urine Blood 3+ (NEGATIVE) H Urine Nitrite Negative (NEGATIVE) Urine Bilirubin Negative (NEGATIVE) Urine Urobilinogen Normal MG/DL (0.0-1.0) Urine Leukocyte Esterase 3+ (NEGATIVE) H Urine RBC 5-10 /HPF (0 - 2) H Urine WBC 15-20 /HPF (0 - 2) H Urine Squamous Epithelial Cells Occasional /LPF Urine Bacteria Occasional /HPF (NONE) Urine Yeast Many /HPF (NONE) H Urine Random Sodium < 20 mmol/L (20-110) L Urine Eosinophils None seen (NONE SEEN) White Blood Count 8.3 K/UL (4.8-10.8) Red Blood Count 3.48 M/UL (4.20-5.40) L Hemoglobin 10.1 G/DL (12.0-16.0) L Hematocrit 29.5 % (37.0-47.0) L Mean Corpuscular Volume 85 FL (80-99) Mean Corpuscular Hemoglobin 28.9 PG (27.0-31.0) Mean Corpuscular Hemoglobin Concent 34.1 G/DL (32.0-36.0) Red Cell Distribution Width 11.2 % (11.6-14.8) L Platelet Count 145 K/UL (150-450) L Mean Platelet Volume 7.4 FL (6.5-10.1) Neutrophils (%) (Auto) 79.5 % (45.0-75.0) H Lymphocytes (%) (Auto) 12.1 % (20.0-45.0) L Monocytes (%) (Auto) 7.3 % (1.0-10.0) Eosinophils (%) (Auto) 0.7 % (0.0-3.0) Basophils (%) (Auto) 0.4 % (0.0-2.0) Sodium Level 140 MMOL/L (136-145) Potassium Level 4.1 MMOL/L (3.5-5.1) Chloride Level 107 MMOL/L (98-107) Carbon Dioxide Level 25 MMOL/L (21-32) Anion Gap 8 mmol/L (5-15) Blood Urea Nitrogen 5 mg/dL (7-18) L Creatinine 1.6 MG/DL (0.55-1.30) H Estimat Glomerular Filtration Rate 37.3 mL/min (>60) Glucose Level 115 MG/DL (74-106) H Uric Acid 3.0 MG/DL (2.6-7.2) Calcium Level 7.7 MG/DL (8.5-10.1) L Phosphorus Level 2.5 MG/DL (2.5-4.9) Magnesium Level 1.8 MG/DL (1.8-2.4) Total Bilirubin 0.4 MG/DL (0.2-1.0) Aspartate Amino Transf (AST/SGOT) 18 U/L (15-37) Alanine Aminotransferase (ALT/SGPT) 16 U/L (12-78) Alkaline Phosphatase 36 U/L (46-116) L Total Protein 6.0 G/DL (6.4-8.2) L Albumin 2.9 G/DL (3.4-5.0) L Globulin 3.1 g/dL Albumin/Globulin Ratio 0.9 (1.0-2.7) L Height (Feet): 5 Height (Inches): 8.00 Weight (Pounds): 140 Medications Current Medications Medications (Trade) Dose Ordered Sig/Megan Route PRN Reason Start Time Stop Time Status Last Admin Dose Admin Acetaminophen (Tylenol) 650 mg Q4H PRN ORAL FEVER 06/29/18 11:15 07/29/18 11:14 Dextrose/ Electrolytes 1,000 ml @ 125 mls/hr Q8H IV 07/02/18 12:00 08/01/18 11:59 07/03/18 04:21 Diphenhydramine HCl (Benadryl) 25 mg Q6H PRN ORAL Itching 06/29/18 00:15 07/29/18 00:14 06/29/18 00:30 Heparin Sodium (Porcine) (Heparin 5000 units/ml) 5,000 units EVERY 12 HOURS SUBQ 06/29/18 21:00 07/29/18 20:59 07/02/18 20:29 Linezolid 300 ml @ 300 mls/hr EVERY 12 HOURS IVPB 06/29/18 21:00 07/06/18 20:59 07/02/18 20:15 Morphine Sulfate (Morphine Sulfate) 1 mg Q4H PRN IVP pain 07/01/18 16:45 07/08/18 16:44 07/03/18 05:12 Ondansetron HCl (Zofran) 4 mg Q6H PRN IVP Nausea & Vomiting 06/29/18 11:15 07/29/18 11:14 07/02/18 21:38 Pantoprazole (Protonix) 40 mg DAILY ORAL 07/01/18 09:00 07/31/18 08:59 07/02/18 08:34 Piperacillin Sod/ Tazobactam Sod 3.375 gm/Dextrose 110 ml @ 27.5 mls/hr Q12HR IVPB 06/30/18 21:00 07/05/18 14:59 07/02/18 20:15 Polyethylene Glycol (Miralax) 17 gm DAILY PRN ORAL Constipation 07/02/18 18:00 1/14/19 17:59 Sennosides (Senokot) 8.6 mg DAILYPRN PRN ORAL Constipation 06/28/18 13:45 07/28/18 13:44 Zolpidem Tartrate (Ambien) 5 mg DAILYPRN PRN ORAL Insomnia 06/29/18 20:00 07/06/18 19:59 Assessment/Plan Status Narrative Hematology Consultation RFC: anemia evaluation REQ MD: Lizzie DOS: 07/03/2018 Present Illness HPI 33-year-old female patient presents the ER complaining of bilateral hidradenitis suppurativa. had suergery on 06/29/18. Patient was referred to the ER by her doctor for evaluation of her hidradenitis vs possible abscess. Patient states has been present for several years, states pain has become increased in the past few days. Reports has taken abx previously and symptoms did not improve. Patient reports wounds are on her bilateral inner thighs. Patient reports wound on the left thigh is more painful, states drained recently. Patient reports she normally takes Tylenol for pain. Denies fever, chest pain, shortness of breath, vomiting. Denies pain with defecation. Denies dysuria hematuria. Cr is elevated and surgery has been postponed at this time, no e/o hemolysis is noted, no f/c. Allergies: VANCOMYCIN (Verified Allergy, Mild, Itching, 06/29/18) Past Medical History: see triage record Now: No Reviewed Nursing Documentation: PMH: Agreed; PSxH: Agreed Past Medical History: No History, Except For ROS: 12 point ros is negative PE Last 24 Hour Vital Signs Date Time Temp Pulse Resp B/P (MAP) Pulse Ox O2 Delivery O2 Flow Rate FiO2 07/03/18 04:00 99.6 60 18 118/78 (91) 96 07/03/18 00:00 99.3 70 18 94/66 (75) 96 07/02/18 21:00 Room Air 07/02/18 20:00 99.6 66 18 101/58 (72) 96 07/02/18 16:00 98.4 76 18 110/62 (78) 100 07/02/18 12:00 98.2 83 18 109/60 (76) 100 Sp02 EP Interpretation: reviewed, normal General Appearance: well appearing, no apparent distress Head: normocephalic, atraumatic Eyes: bilateral eye normal inspection, bilateral eye PERRL ENT: hearing grossly normal, normal pharynx, no angioedema, normal voice Neck: full range of motion Respiratory: lungs clear, normal breath sounds, no rhonchi, no respiratory distress Cardiovascular #1: regular rate, rhythm, no edema Gastrointestinal: non tender, soft, no mass, non-distended, no guarding, no rebound Musculoskeletal: back normal, digits/nails normal Neurologic: alert, oriented x3, responsive, motor strength/tone normal, sensory intact Psychiatric: mood/affect normal Skin: other - obvious bilateral suppurtiva located on proximal inner thighs with possible abscess formation Current Medications Medications (Trade) Dose Ordered Sig/Megan Route PRN Reason Start Time Stop Time Status Last Admin Dose Admin Acetaminophen (Tylenol) 650 mg Q4H PRN ORAL FEVER 06/29/18 11:15 07/29/18 11:14 Dextrose/ Electrolytes 1,000 ml @ 125 mls/hr Q8H IV 07/02/18 12:00 08/01/18 11:59 07/03/18 04:21 Diphenhydramine HCl (Benadryl) 25 mg Q6H PRN ORAL Itching 06/29/18 00:15 07/29/18 00:14 06/29/18 00:30 Heparin Sodium (Porcine) (Heparin 5000 units/ml) 5,000 units EVERY 12 HOURS SUBQ 06/29/18 21:00 07/29/18 20:59 07/02/18 20:29 Linezolid 300 ml @ 300 mls/hr EVERY 12 HOURS IVPB 06/29/18 21:00 07/06/18 20:59 07/02/18 20:15 Morphine Sulfate (Morphine Sulfate) 1 mg Q4H PRN IVP pain 07/01/18 16:45 07/08/18 16:44 07/03/18 05:12 Ondansetron HCl (Zofran) 4 mg Q6H PRN IVP Nausea & Vomiting 06/29/18 11:15 07/29/18 11:14 07/02/18 21:38 Pantoprazole (Protonix) 40 mg DAILY ORAL 07/01/18 09:00 07/31/18 08:59 07/02/18 08:34 Piperacillin Sod/ Tazobactam Sod 3.375 gm/Dextrose 110 ml @ 27.5 mls/hr Q12HR IVPB 06/30/18 21:00 07/05/18 14:59 07/02/18 20:15 Polyethylene Glycol (Miralax) 17 gm DAILY PRN ORAL Constipation 07/02/18 18:00 08/01/18 17:59 Sennosides (Senokot) 8.6 mg DAILYPRN PRN ORAL Constipation 06/28/18 13:45 07/28/18 13:44 Zolpidem Tartrate (Ambien) 5 mg DAILYPRN PRN ORAL Insomnia 06/29/18 20:00 07/06/18 19:59 Laboratory Tests Test 07/02/18 14:20 07/03/18 03:50 07/03/18 06:30 Urine Color Pale yellow Urine Appearance Slightly cloudy Urine pH 5 (4.5-8.0) Urine Specific [place] 1.010 (1.005-1.035) Urine Protein 2+ (NEGATIVE) H Urine Glucose (UA) Negative (NEGATIVE) Urine Ketones Negative (NEGATIVE) Urine Blood 3+ (NEGATIVE) H Urine Nitrite Negative (NEGATIVE) Urine Bilirubin Negative (NEGATIVE) Urine Urobilinogen Normal MG/DL (0.0-1.0) Urine Leukocyte Esterase 3+ (NEGATIVE) H Urine RBC 5-10 /HPF (0 - 2) H Urine WBC 15-20 /HPF (0 - 2) H Urine Squamous Epithelial Cells Occasional /LPF Urine Bacteria Occasional /HPF (NONE) Urine Yeast Many /HPF (NONE) H Urine Random Sodium < 20 mmol/L (20-110) L Urine Eosinophils None seen (NONE SEEN) White Blood Count 8.3 K/UL (4.8-10.8) Red Blood Count 3.48 M/UL (4.20-5.40) L Hemoglobin 10.1 G/DL (12.0-16.0) L Hematocrit 29.5 % (37.0-47.0) L Mean Corpuscular Volume 85 FL (80-99) Mean Corpuscular Hemoglobin 28.9 PG (27.0-31.0) Mean Corpuscular Hemoglobin Concent 34.1 G/DL (32.0-36.0) Red Cell Distribution Width 11.2 % (11.6-14.8) L Platelet Count 145 K/UL (150-450) L Mean Platelet Volume 7.4 FL (6.5-10.1) Neutrophils (%) (Auto) 79.5 % (45.0-75.0) H Lymphocytes (%) (Auto) 12.1 % (20.0-45.0) L Monocytes (%) (Auto) 7.3 % (1.0-10.0) Eosinophils (%) (Auto) 0.7 % (0.0-3.0) Basophils (%) (Auto) 0.4 % (0.0-2.0) Sodium Level 140 MMOL/L (136-145) Potassium Level 4.1 MMOL/L (3.5-5.1) Chloride Level 107 MMOL/L (98-107) Carbon Dioxide Level 25 MMOL/L (21-32) Anion Gap 8 mmol/L (5-15) Blood Urea Nitrogen 5 mg/dL (7-18) L Creatinine 1.6 MG/DL (0.55-1.30) H Estimat Glomerular Filtration Rate 37.3 mL/min (>60) Glucose Level 115 MG/DL (74-106) H Uric Acid 3.0 MG/DL (2.6-7.2) Calcium Level 7.7 MG/DL (8.5-10.1) L Phosphorus Level 2.5 MG/DL (2.5-4.9) Magnesium Level 1.8 MG/DL (1.8-2.4) Total Bilirubin 0.4 MG/DL (0.2-1.0) Aspartate Amino Transf (AST/SGOT) 18 U/L (15-37) Alanine Aminotransferase (ALT/SGPT) 16 U/L (12-78) Alkaline Phosphatase 36 U/L (46-116) L Total Protein 6.0 G/DL (6.4-8.2) L Albumin 2.9 G/DL (3.4-5.0) L Globulin 3.1 g/dL Albumin/Globulin Ratio 0.9 (1.0-2.7) L Assessment and Recs: # Anemia of chronic disease -- hgb currently trending in the 10-11 range, has been stable --> anemia panel has been ordered and results pending with a ferritin --> hgb goal is >7, transfuse as required --> no evidence of hemolysis # Leukocytosis - with a history of abscess --> trend smear, eval for blasts, and none were noted --> appreciate id recs # Hidradenitis suppurativa proximal inner thighs --> has received surgery for 06/29 and will repeat surgery shortly with Dr. Banegas (pending 07/03) --> on abx as per ID --> appreciate their recs # LIANA given ivf and currently improved --> trend cr as per nephro # DVT ppx with scds, consider heparin sq after surgery Greatly appreciate consultation! Bonifacio Dhillon MD Jul 03, 2018 09:18
--- NOTE | 2018-07-03 10:24 | General Progress Note ---
Assessment/Plan Problem List: (1) Pain ICD Codes: R52 - Pain, unspecified SNOMED: 65362524 (2) Cellulitis ICD Codes: L03.90 - Cellulitis, unspecified SNOMED: 933165062 (3) Abscess ICD Codes: L02.91 - Cutaneous abscess, unspecified SNOMED: 693008791 (4) Hidradenitis suppurativa ICD Codes: L73.2 - Hidradenitis suppurativa SNOMED: 59313660 (5) LIANA (acute kidney injury) ICD Codes: N17.9 - Acute kidney failure, unspecified SNOMED: 98416019 (6) Constipation ICD Codes: K59.00 - Constipation, unspecified SNOMED: 09938321 Status: stable Assessment/Plan #Abscess #Cellulitis #Hidradenitis Suppurative #Pain #allergic reaction to vancomycin #LIANA - Cr improving to 1.6 #Constipation Plan: s/p excision 06/29/18, plan to OR for closure Wednesday cont abx per ID recs Cr still elevated at 2.0, continue with hydration and encourage eating. , planned for closure wednesday noted to have worsening renal function, new LIANA, nephro consulted, IVF appreciate nephro recs had small BM yesterday with miralax given, will give mag citrate today. continue excellent post op care prophylactic anticoagulation per surgery, Incentive Spirometry, abx iv, pain control ppx: scd diet: regular [facility] Medical will required an estimated 3-5 midnights stay due to antibiotic management along with procedures required by plastic surgery. I spent over 41 minutes on this patient's case, and over 35 minutes was dedicated to counseling and/or care coordination. Subjective Date patient seen: Jul 03, 2018 Time patient seen: 10:21 Allergies: Coded Allergies: VANCOMYCIN (Verified Allergy, Mild, Itching, 06/29/18) Subjective f/u inguinal abscesses with surrounding cellulitis concerns for hydradenitis suppurativa, LIANA denies any fevers/chills states pain is well controlle no acute events overnight planned for OR wednesday Had BM yesterday evening, made her feel a bit better planned mg citrate for BMs today renal fxn improving 14 point ROS reviewed and negative except for the above Objective Last 24 Hour Vital Signs Date Time Temp Pulse Resp B/P (MAP) Pulse Ox O2 Delivery O2 Flow Rate FiO2 07/03/18 04:00 99.6 60 18 118/78 (91) 96 07/03/18 00:00 99.3 70 18 94/66 (75) 96 07/02/18 21:00 Room Air 07/02/18 20:00 99.6 66 18 101/58 (72) 96 07/02/18 16:00 98.4 76 18 110/62 (78) 100 07/02/18 12:00 98.2 83 18 109/60 (76) 100 Intake and Output 07/02/18 07/03/18 19:00 07:00 Intake Total 2275 ml 1187.5 ml Output Total 800 ml 700 ml Balance 1475 ml 487.5 ml Intake Oral 650 ml IV Total 1625 ml 1187.5 ml Output Urine Total 800 ml 700 ml Laboratory Tests 07/02/18 14:20: Urine Color Pale yellow, Urine Appearance Slightly cloudy, Urine pH 5, Urine Specific [place] 1.010, Urine Protein 2+H, Urine Glucose (UA) Negative, Urine Ketones Negative, Urine Blood 3+H, Urine Nitrite Negative, Urine Bilirubin Negative, Urine Urobilinogen Normal, Urine Leukocyte Esterase 3+H, Urine RBC 5- 10H, Urine WBC 15-20H, Urine Squamous Epithelial Cells Occasional, Urine Bacteria Occasional, Urine Yeast ManyH, Urine Random Sodium < 20L 07/03/18 03:50: Urine Eosinophils None seen 07/03/18 06:30: White Blood Count 8.3, Red Blood Count 3.48L, Hemoglobin 10.1L, Hematocrit 29.5L , Mean Corpuscular Volume 85, Mean Corpuscular Hemoglobin 28.9, Mean Corpuscular Hemoglobin Concent 34.1, Red Cell Distribution Width 11.2L, Platelet Count 145L, Mean Platelet Volume 7.4, Neutrophils (%) (Auto) 79.5H, Lymphocytes (%) (Auto) 12.1L, Monocytes (%) (Auto) 7.3, Eosinophils (%) (Auto) 0.7, Basophils (%) (Auto) 0.4, Sodium Level 140, Potassium Level 4.1, Chloride Level 107, Carbon Dioxide Level 25, Anion Gap 8, Blood Urea Nitrogen 5L, Creatinine 1.6H, Estimat Glomerular Filtration Rate 37.3, Glucose Level 115H, Uric Acid 3.0, Calcium Level 7.7L, Phosphorus Level 2.5, Magnesium Level 1.8, Ferritin 114, Total Bilirubin 0.4, Aspartate Amino Transf (AST/SGOT) 18, Alanine Aminotransferase (ALT/SGPT) 16, Alkaline Phosphatase 36L, Total Protein 6.0L, Albumin 2.9L, Globulin 3.1, Albumin/Globulin Ratio 0.9L Height (Feet): 5 Height (Inches): 8.00 Weight (Pounds): 140 General Appearance: no apparent distress, alert EENT: PERRL/EOMI, normal ENT inspection, TMs normal, pharynx normal Neck: non-tender, normal alignment, supple, normal inspection Cardiovascular: normal peripheral pulses, normal rate, regular rhythm Respiratory/Chest: chest wall non-tender, lungs clear, normal breath sounds, no respiratory distress, no accessory muscle use Abdomen: normal bowel sounds, non tender, soft, no organomegaly, no mass Extremities: normal range of motion, non-tender, normal inspection 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
[2018-07-03] MEDS ORDERED: Magnesium Citrate Liq Btl ORAL SCH (11:00)
--- NOTE | 2018-07-03 14:35 | Nephrology Progress Note ---
Assessment/Plan Problem List: (1) Acute renal failure Assessment: Cr lower 1.6 (2) UTI (urinary tract infection) (3) Hidradenitis suppurativa (4) Cellulitis Assessment acute renal failure Cr lower Hypotension Pain Cellulitis Abcess / Hidradenitis suppurativea UTI Plan K and Mag supplement as needed Vigorous hydration NS and Albumin bolus Urine studies Avoid Nephrotoxics Monitor renal parameters On Zosyn and Zyvox Subjective ROS Limited/Unobtainable: No Objective Objective Last 24 Hour Vital Signs Date Time Temp Pulse Resp B/P (MAP) Pulse Ox O2 Delivery O2 Flow Rate FiO2 07/03/18 04:00 99.6 60 18 118/78 (91) 96 07/03/18 00:00 99.3 70 18 94/66 (75) 96 07/02/18 21:00 Room Air 07/02/18 20:00 99.6 66 18 101/58 (72) 96 07/02/18 16:00 98.4 76 18 110/62 (78) 100 Intake and Output 07/02/18 07/03/18 18:59 06:59 Intake Total 2150 ml 1312.5 ml Output Total 800 ml 700 ml Balance 1350 ml 612.5 ml Intake Oral 650 ml IV Total 1500 ml 1312.5 ml Output Urine Total 800 ml 700 ml Laboratory Tests 07/03/18 03:50: Urine Eosinophils None seen 07/03/18 06:30: White Blood Count 8.3, Red Blood Count 3.48L, Hemoglobin 10.1L, Hematocrit 29.5L , Mean Corpuscular Volume 85, Mean Corpuscular Hemoglobin 28.9, Mean Corpuscular Hemoglobin Concent 34.1, Red Cell Distribution Width 11.2L, Platelet Count 145L, Mean Platelet Volume 7.4, Neutrophils (%) (Auto) 79.5H, Lymphocytes (%) (Auto) 12.1L, Monocytes (%) (Auto) 7.3, Eosinophils (%) (Auto) 0.7, Basophils (%) (Auto) 0.4, Sodium Level 140, Potassium Level 4.1, Chloride Level 107, Carbon Dioxide Level 25, Anion Gap 8, Blood Urea Nitrogen 5L, Creatinine 1.6H, Estimat Glomerular Filtration Rate 37.3, Glucose Level 115H, Uric Acid 3.0, Calcium Level 7.7L, Phosphorus Level 2.5, Magnesium Level 1.8, Ferritin 114, Total Bilirubin 0.4, Aspartate Amino Transf (AST/SGOT) 18, Alanine Aminotransferase (ALT/SGPT) 16, Alkaline Phosphatase 36L, Total Protein 6.0L, Albumin 2.9L, Globulin 3.1, Albumin/Globulin Ratio 0.9L Height (Feet): 5 Height (Inches): 8.00 Weight (Pounds): 140 General Appearance: no apparent distress Respiratory/Chest: lungs clear Abdomen: soft Objective no change Ilan Nelson MD Jul 03, 2018 14:35
[2018-07-04] VITALS (13 sets, daily range): BP systolic 92–117; BP diastolic 51–67
[2018-07-04 06:29] LABS: BASOPHILS % (AUTO) 0.6 % (0.0-2.0); EOSINOPHILS % (AUTO) 0.8 % (0.0-3.0); HEMOGLOBIN 10.3 G/DL (12.0-16.0); LYMPHOCYTES % (AUTO) 10.9 % (20.0-45.0); MEAN CORPUSCULAR VOLUME 86 FL (80-99); MONOCYTES % (AUTO) 5.9 % (1.0-10.0); NEUTROPHILS % (AUTO) 81.7 % (45.0-75.0); PLATELET COUNT 150 K/UL (150-450); WHITE BLOOD COUNT 7.6 K/UL (4.8-10.8)
[2018-07-04 06:57] LABS: ALANINE AMINOTRANSFERASE 21 U/L (12-78); ALBUMIN 2.9 G/DL (3.4-5.0); ALBUMIN/GLOBULIN RATIO 0.8 (1.0-2.7); ALKALINE PHOSPHATASE 40 U/L (46-116); ANION GAP 8 mmol/L (5-15); ASPARTATE AMINO TRANSFERASE 20 U/L (15-37); BILIRUBIN,TOTAL 0.4 MG/DL (0.2-1.0); BLOOD UREA NITROGEN 4 mg/dL (7-18); CALCIUM 7.9 MG/DL (8.5-10.1); CARBON DIOXIDE 24 MMOL/L (21-32); CHLORIDE 107 MMOL/L (98-107); CREATININE 1.5 MG/DL (0.55-1.30); PHOSPHORUS 2.4 MG/DL (2.5-4.9); POTASSIUM 4.1 MMOL/L (3.5-5.1); SODIUM 139 MMOL/L (136-145)
[2018-07-04] MEDS ORDERED: Midazolam 2mg/2ml Inj ONE (07:08)
[2018-07-04] MEDS ORDERED: fentaNYL 100 mcg/2 mL IV ONE (07:08)
[2018-07-04] MEDS ORDERED: Propofol 200mg/20ml IV ONE (07:09)
[2018-07-04] MEDS ORDERED: Lidocaine 1% MPF 10mg/ml 5ml ONE (07:09)
[2018-07-04] MEDS ORDERED: Lidocaine 1% 10mg/ml/Epi 0.005mg/ml 30ml vial INJ ONE (07:22)
[2018-07-04] MEDS ORDERED: Bacitracin 50000 Units Vial ONE (07:22)
[2018-07-04] MEDS ORDERED: NeoSporin Gu Irrig 1ml Amp IRRIG ONE (07:22)
--- NOTE | 2018-07-04 07:22 | Pre-Procedure Note/Attestation ---
Pre-Procedure Note/Attestation Complete Prior to Procedure Planned Procedure: bilateral Procedure Narrative: Bilateral groin wound flap closure Indications for Procedure Pre-Operative Diagnosis: Bilateral groin HS Attestation I attest that I discussed the nature of the procedure; its benefits; risks and complications; and alternatives (and the risks and benefits of such alternatives ), prior to the procedure, with the patient (or the patient's legal direct sales representative). I attest that, if there was a reasonable possibility of needing a blood transfusion, the patient (or the patient's legal direct sales representative) was given the [facility] standardized written summary, pursuant to the Siva Lisbeth Blood Safety Act ([place] Health and Safety Code # 1645, as amended). I attest that I re-evaluated the patient just prior to the surgery and that there has been no change in the patient's H&P, except as documented below: Davina Banegas MD Jul 04, 2018 07:22
[2018-07-04] MEDS ORDERED: TransDerm Scop 1mg/72HR Patch TDERMAL ONE (07:24)
[2018-07-04] MEDS ORDERED: Sterile Water Irrig 1000ml IRRIG ONE (07:30)
[2018-07-04] MEDS ORDERED: LR 1000ml ONE (07:30)
[2018-07-04] MEDS ORDERED: NS Irrig 2000ml IRRIG ONE (07:30)
[2018-07-04] MEDS ORDERED: NS Irrig 1000ml ONE (07:30)
--- NOTE | 2018-07-04 08:04 | General Progress Note ---
Assessment/Plan Problem List: (1) Pain ICD Codes: R52 - Pain, unspecified SNOMED: 23163436 (2) Cellulitis ICD Codes: L03.90 - Cellulitis, unspecified SNOMED: 576004470 (3) Abscess ICD Codes: L02.91 - Cutaneous abscess, unspecified SNOMED: 369037000 (4) Hidradenitis suppurativa ICD Codes: L73.2 - Hidradenitis suppurativa SNOMED: 87654045 (5) LIANA (acute kidney injury) ICD Codes: N17.9 - Acute kidney failure, unspecified SNOMED: 69535912 (6) Constipation ICD Codes: K59.00 - Constipation, unspecified SNOMED: 65744975 Status: stable Assessment/Plan #Abscess #Cellulitis #Hidradenitis Suppurative #Pain #allergic reaction to vancomycin #LIANA - Cr improving now, 1.5 today #Constipation Plan: s/p excision 06/29/18, 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 I spent over 45 minutes on this patient's case, and over 36 minutes was dedicated to counseling and/or care coordination. Subjective Date patient seen: Jul 04, 2018 Time patient seen: 06:16 Allergies: Coded Allergies: VANCOMYCIN (Verified Allergy, Mild, Itching, 06/29/18) Subjective f/u inguinal abscesses with surrounding cellulitis concerns for hydradenitis suppurativa, LIANA denies any fevers/chills pain well controlled feeling better denies any nausea/vomiting renal fxn has improved as expected planned for OR early this AM no acute events overnight having appropriate BMs 14 point ROS reviewed and negative except for the above Objective Last 24 Hour Vital Signs Date Time Temp Pulse Resp B/P (MAP) Pulse Ox O2 Delivery O2 Flow Rate FiO2 07/04/18 04:00 99.7 75 17 105/60 (75) 97 07/04/18 00:00 99.3 73 17 112/60 (77) 98 07/03/18 21:00 Room Air 07/03/18 20:00 99.6 70 18 125/74 (91) 100 07/03/18 18:37 98.6 65 18 106/65 (79) 99 07/03/18 12:00 99.1 59 18 121/62 (81) 100 07/03/18 09:00 Room Air 07/03/18 08:00 98.6 55 18 105/67 (80) 100 Intake and Output 07/03/18 07/04/18 19:00 07:00 Intake Total 360 ml 1285.0 ml Output Total 1200 ml Balance 360 ml 85.0 ml Intake Oral 360 ml IV Total 1285.0 ml Output Urine Total 1200 ml # Bowel Movements 1 Laboratory Tests 07/04/18 06:00: White Blood Count 7.6, Red Blood Count 3.50L, Hemoglobin 10.3L, Hematocrit 30.0L , Mean Corpuscular Volume 86, Mean Corpuscular Hemoglobin 29.3, Mean Corpuscular Hemoglobin Concent 34.2, Red Cell Distribution Width 11.0L, Platelet Count 150, Mean Platelet Volume 7.6, Neutrophils (%) (Auto) 81.7H, Lymphocytes (%) (Auto) 10.9L, Monocytes (%) (Auto) 5.9, Eosinophils (%) (Auto) 0.8, Basophils (%) (Auto) 0.6, Sodium Level 139, Potassium Level 4.1, Chloride Level 107, Carbon Dioxide Level 24, Anion Gap 8, Blood Urea Nitrogen 4L, Creatinine 1.5H, Estimat Glomerular Filtration Rate 40.2, Glucose Level 116H, Uric Acid 2.5L, Calcium Level 7.9L, Phosphorus Level 2.4L, Magnesium Level 1.5L , Total Bilirubin 0.4, Aspartate Amino Transf (AST/SGOT) 20, Alanine Aminotransferase (ALT/SGPT) 21, Alkaline Phosphatase 40L, C-Reactive Protein, Quantitative 2.2H, Total Protein 6.4, Albumin 2.9L, Globulin 3.5, Albumin/ Globulin Ratio 0.8L Height (Feet): 5 Height (Inches): 8.00 Weight (Pounds): 140 General Appearance: WD/WN, no apparent distress, alert EENT: PERRL/EOMI, normal ENT inspection, TMs normal, pharynx normal Neck: non-tender, normal alignment, supple, normal inspection Cardiovascular: normal peripheral pulses, normal rate, regular rhythm Respiratory/Chest: chest wall non-tender, lungs clear, normal breath sounds, no respiratory distress, no accessory muscle use Abdomen: normal bowel sounds, non tender, soft, no organomegaly, no mass Extremities: normal range of motion, non-tender, normal inspection 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
--- NOTE | 2018-07-04 08:24 | Anethesia Preoperative Eval ---
Anesthesia Pre-op PMH/ROS General Date of Evaluation: Jul 04, 2018 Time of Evaluation: 07:20 Anesthesiologist: Rey ASA Score: ASA 2 Mallampati Score Class I : Soft palate, uvula, fauces, pillars visible Class II: Soft palate, uvula, fauces visible Class III: Soft palate, base of uvula visible Class IV: Only hard plate visible Mallampati Classification: Class II Surgeon: Makenzie Diagnosis: Recurrent HS Surgical Procedure: Revision and closure of bilateral groin wounds Anesthesia History: none Family History: no anesthesia problems Allergies: Coded Allergies: VANCOMYCIN (Verified Allergy, Mild, Itching, 06/29/18) Medications: see eMAR Patient NPO?: Yes NPO Date: Jul 01, 2018 NPO Time: 0000 Past Medical History Cardiovascular: Denies: HTN, CAD, NV, valve dz, arrhythmia, other Pulmonary: Denies: asthma, COPD, ERICKA, other Gastrointestinal/Genitourinary: Reports: GERD - mild, other - acute kidney vancomycin related ?; Denies: CRI, ESRD Neurologic/Psychiatric: Reports: depression/anxiety; Denies: dementia, CVA, TIA, other Endocrine: Denies: DM, hypothyroidism, steroids, other HEENT: Denies: cataract (L), cataract (R), glaucoma, [place] (L), [place] (R), other Hematology/Immune: Reports: anemia - mild; Denies: DVT, bleeding disorder, other Musculoskeletal/Integumentary: Reports: other - recurrent HS; Denies: OA, RA, DJD, DDD, edema PMH Narrative: as above PSxH Narrative: Surgical treatment of HS Anesthesia Pre-op Phys. Exam Physician Exam Last Vital Signs Date Time Temp Pulse Resp B/P (MAP) Pulse Ox O2 Delivery O2 Flow Rate FiO2 07/04/18 04:00 99.7 75 17 105/60 (75) 97 07/03/18 21:00 Room Air 06/29/18 21:00 2.0 06/28/18 12:16 100 Constitutional: NAD Neurologic: CN 2-12 intact Cardiovascular: RRR Respiratory: CTA Gastrointestinal: S/NT/ND Airway Exam Mallampati Score: Class II MO: full Neck: flexible ROM: full Teeth: intact Dentures: no upper, no lower Anesthesia Pre-op A/P Labs Hematology Test 07/04/18 06:00 White Blood Count 7.6 K/UL (4.8-10.8) Red Blood Count 3.50 M/UL (4.20-5.40) L Hemoglobin 10.3 G/DL (12.0-16.0) L Hematocrit 30.0 % (37.0-47.0) L Mean Corpuscular Volume 86 FL (80-99) Mean Corpuscular Hemoglobin 29.3 PG (27.0-31.0) Mean Corpuscular Hemoglobin Concent 34.2 G/DL (32.0-36.0) Red Cell Distribution Width 11.0 % (11.6-14.8) L Platelet Count 150 K/UL (150-450) Mean Platelet Volume 7.6 FL (6.5-10.1) Neutrophils (%) (Auto) 81.7 % (45.0-75.0) H Lymphocytes (%) (Auto) 10.9 % (20.0-45.0) L Monocytes (%) (Auto) 5.9 % (1.0-10.0) Eosinophils (%) (Auto) 0.8 % (0.0-3.0) Basophils (%) (Auto) 0.6 % (0.0-2.0) Chemistry Test 07/04/18 06:00 Sodium Level 139 MMOL/L (136-145) Potassium Level 4.1 MMOL/L (3.5-5.1) Chloride Level 107 MMOL/L (98-107) Carbon Dioxide Level 24 MMOL/L (21-32) Anion Gap 8 mmol/L (5-15) Blood Urea Nitrogen 4 mg/dL (7-18) L Creatinine 1.5 MG/DL (0.55-1.30) H Estimat Glomerular Filtration Rate 40.2 mL/min (>60) Glucose Level 116 MG/DL (74-106) H Uric Acid 2.5 MG/DL (2.6-7.2) L Calcium Level 7.9 MG/DL (8.5-10.1) L Phosphorus Level 2.4 MG/DL (2.5-4.9) L Magnesium Level 1.5 MG/DL (1.8-2.4) L Total Bilirubin 0.4 MG/DL (0.2-1.0) Aspartate Amino Transf (AST/SGOT) 20 U/L (15-37) Alanine Aminotransferase (ALT/SGPT) 21 U/L (12-78) Alkaline Phosphatase 40 U/L (46-116) L C-Reactive Protein, Quantitative 2.2 mg/dL (0.00-0.90) H Total Protein 6.4 G/DL (6.4-8.2) Albumin 2.9 G/DL (3.4-5.0) L Globulin 3.5 g/dL Albumin/Globulin Ratio 0.8 (1.0-2.7) L Risk Assessment & Plan Assessment: ASA 2 Plan: GA with LMA Status Change Before Surgery: No Pre-Antibiotics Drug: Ancef 1gr. Given Within 1 Hr of Incision: Yes Time Given: 07:52 Harley Le MD Jul 04, 2018 08:24
[2018-07-04] MEDS ORDERED: LR 1000ml 1,000 ML IVLG SCH (08:25)
[2018-07-04] MEDS ORDERED: Morphine Sulfate 10mg/ml Inj ONE (08:28)
[2018-07-04] MEDS ORDERED: Sodium Chloride 10ml vial INJ ONE (08:28)
[2018-07-04] MEDS ORDERED: DiphenhydrAMINE 50mg/ml Inj IVP PRN (08:30)
[2018-07-04] MEDS ORDERED: Meperidine 50mg/ml Inj(FOR RIGORS ONLY) IV PRN (08:30)
[2018-07-04] MEDS ORDERED: Midazolam 2mg/2ml Inj IVP PRN (08:30)
[2018-07-04] MEDS ORDERED: Metoclopramide 10mg/2ml Inj IVP PRN (08:30)
[2018-07-04] MEDS ORDERED: fentaNYL 100 mcg/2 mL IV PRN (08:30)
[2018-07-04] MEDS ORDERED: TransDerm Scop 1mg/72HR Patch TDERMAL SCH (09:00)
--- NOTE | 2018-07-04 09:19 | Operative Note - PDOC ---
Operative Note Operative Note Pre-op Diagnosis: Bilateral groin HS Procedure: Closure of bilateral groin wounds Post-op Diagnosis: same as pre-op Surgeon: Makenzie Mechanical Estimator: Morgan Anesthesia: general Specimen: yes Complications: none Estimated Blood Loss: minimal Drains: RON Implant(s) used?: No Davina Banegas MD Jul 04, 2018 09:19
[2018-07-04] MEDS ORDERED: Acetaminophen (Non formulary) 100 ML IV ONE (09:30)
--- NOTE | 2018-07-04 10:46 | Immediate Post-Op Evaluation ---
Immediate Post-Op Evalulation Immediate Post-Op Evalulation Procedure: Revision and closure of bilarteral groin wounds Date of Evaluation: Jul 04, 2018 Time of Evaluation: 09:41 IV Fluids: 800 Blood Products: none Estimated Blood Loss: <50 Urinary Output: 100 Blood Pressure Systolic: 106 Blood Pressure Diastolic: 74 Pulse Rate: 68 Respiratory Rate: 20 O2 Sat by Pulse Oximetry: 96 Temperature (Fahrenheit): 97.6 Pain Score (1-10): 2 Nausea: No Vomiting: No Complications none Patient Status: reacts, patent, none Hydration Status: adequate Harley Le MD Jul 04, 2018 10:46
[2018-07-04] MEDS ORDERED: PCA HYDROmorphone 1mg/ml 30 ML IV PRN (11:00)
[2018-07-04] MEDS ORDERED: Rate Change PCA 1 Each MISC PRN (11:00)
[2018-07-04] MEDS: Piperacillin/Tazobactam 3.375 GM in D5W 110 ML IVPB SCH ×2 (11:52→20:10)
[2018-07-04] MEDS ORDERED: PCA Education Pamphlet MISC SCH (12:00)
[2018-07-04] MEDS: Heparin 5000 units/ml inj SUBQ SCH ×2 (12:09→20:13)
--- NOTE | 2018-07-04 12:24 | Nephrology Progress Note ---
Assessment/Plan Problem List: (1) Acute renal failure Assessment: Cr lower 1.5 (2) UTI (urinary tract infection) (3) Hidradenitis suppurativa (4) Cellulitis Assessment acute renal failure Cr lower Hypotension Pain Cellulitis Abcess / Hidradenitis suppurativea UTI Plan K and Mag , phos supplement as needed Vigorous hydration NS and Albumin bolus Urine studies Avoid Nephrotoxics Monitor renal parameters On Zosyn and Zyvox Subjective ROS Limited/Unobtainable: No Objective Objective Last 24 Hour Vital Signs Date Time Temp Pulse Resp B/P (MAP) Pulse Ox O2 Delivery O2 Flow Rate FiO2 07/04/18 11:08 Room Air 07/04/18 11:08 98.3 07/04/18 11:05 21 07/04/18 11:00 98.3 68 21 99/54 96 Nasal Cannula 3 07/04/18 10:50 14 07/04/18 10:46 68 20 96 07/04/18 10:45 60 11 98/55 95 Nasal Cannula 3 07/04/18 10:38 13 07/04/18 10:30 61 18 96/55 95 Nasal Cannula 3 07/04/18 10:15 60 15 95/54 95 Nasal Cannula 3 07/04/18 10:00 61 16 98/56 96 Simple Mask 6 07/04/18 09:44 65 16 98/58 96 Simple Mask 6 07/04/18 09:39 77 16 92/51 96 Simple Mask 6 07/04/18 09:34 97.5 72 20 100/56 96 Simple Mask 6 07/04/18 04:00 99.7 75 17 105/60 (75) 97 07/04/18 00:00 99.3 73 17 112/60 (77) 98 07/03/18 21:00 Room Air 07/03/18 20:00 99.6 70 18 125/74 (91) 100 07/03/18 18:37 98.6 65 18 106/65 (79) 99 Intake and Output 07/03/18 07/04/18 18:59 06:59 Intake Total 360 ml 1535.0 ml Output Total 1200 ml Balance 360 ml 335.0 ml Intake Oral 360 ml IV Total 1535.0 ml Output Urine Total 1200 ml # Bowel Movements 1 Laboratory Tests 07/04/18 06:00: White Blood Count 7.6, Red Blood Count 3.50L, Hemoglobin 10.3L, Hematocrit 30.0L , Mean Corpuscular Volume 86, Mean Corpuscular Hemoglobin 29.3, Mean Corpuscular Hemoglobin Concent 34.2, Red Cell Distribution Width 11.0L, Platelet Count 150, Mean Platelet Volume 7.6, Neutrophils (%) (Auto) 81.7H, Lymphocytes (%) (Auto) 10.9L, Monocytes (%) (Auto) 5.9, Eosinophils (%) (Auto) 0.8, Basophils (%) (Auto) 0.6, Sodium Level 139, Potassium Level 4.1, Chloride Level 107, Carbon Dioxide Level 24, Anion Gap 8, Blood Urea Nitrogen 4L, Creatinine 1.5H, Estimat Glomerular Filtration Rate 40.2, Glucose Level 116H, Uric Acid 2.5L, Calcium Level 7.9L, Phosphorus Level 2.4L, Magnesium Level 1.5L , Total Bilirubin 0.4, Aspartate Amino Transf (AST/SGOT) 20, Alanine Aminotransferase (ALT/SGPT) 21, Alkaline Phosphatase 40L, C-Reactive Protein, Quantitative 2.2H, Total Protein 6.4, Albumin 2.9L, Globulin 3.5, Albumin/ Globulin Ratio 0.8L Height (Feet): 5 Height (Inches): 8.00 Weight (Pounds): 140 General Appearance: no apparent distress Objective no change Ilan Nelson MD Jul 04, 2018 12:24
[2018-07-04] MEDS ORDERED: Potassium Phosphate 15 MM in NS 275 ML IV ONE (16:00)
--- NOTE | 2018-07-04 17:15 | Operative Note - Dictated ---
DATE OF OPERATION: 07/04/2018 PREOPERATIVE DIAGNOSIS: Bilateral open groin wounds, status post radical excision of hidradenitis suppurativa. POSTOPERATIVE DIAGNOSIS: Bilateral open groin wounds, status post radical excision of hidradenitis suppurativa. PROCEDURE: 1. Adjacent tissue transfer closure of left groin wound measuring 20 x 15 cm. 2. Adjacent tissue transfer closure of right groin wound measuring 22 x 14 cm. SURGEON: Davina Banegas M.D. ACCOUNTING OFFICE MANAGER: Adrinao Mora M.D. ANESTHESIA: General. COMPLICATIONS: None. DRAINS: Included a size 15 RON on each side. DISPOSITION: Stable to the recovery room. INDICATIONS FOR SURGERY: This is a 33-year-old female, who is now five days status post radical excision of bilateral groin hidradenitis with elevation of medial thigh flaps, who was supposed to undergo flap inset and closure of her wounds on July 01, however, due to elevation in her creatinine secondary to vancomycin, the patient's surgery had to be postponed until her creatinine and her renal function improved. This has been the case with her creatinine near-normal now and she is ready to undergo surgery and was cleared for that by the medical team. She agreed to undergo adjacent tissue transfer and flap closure of her bilateral groin wounds and understood the risks and benefits of surgery and agreed to proceed. DETAILS OF THE OPERATION: The patient was brought to the operating room and laid in lithotomy position on the operating room table. Her bilateral groins and thighs were prepped and draped in sterile and usual fashion. We first began on the left side where the wound measured 20 x 15 cm. As had been done in the initial operation, the medial thigh flap based off of perforators of the superficial femoral artery was elevated, however, we noted that there was not enough laxity to the flap. As such, further release of the flap was performed by releasing the attachments to the underlying adductor muscle fascia and with proximal and distal incisions made to fully mobilize the flap at the deeper level, we were able to achieve a tension-free reapproximation of the tissues. With this done, this flap was further elevated. The wound was copiously irrigated with pulse lavage and Surgicel was placed in the wound bed. A size 15 RON was also placed in the flap advancement to allow for adjacent tissue transfer to be completed using #0 and 2-0 Vicryl sutures and multiple Prolene sutures were used to complete the flap inset. We then turned our attention to the contralateral right groin wound where the wound measured 22 x 14 cm. In a similar fashion, we noted that there was a need for further flap elevation by releasing the attachments to the underlying adductor fascia with proximal and distal incisions also made to fully mobilize the flap. With this done, we were able to get a tension-free reapproximation of the tissues of the medial vulva on that side and with pulse lavage irrigation completed and hemostasis achieved, Surgicel was placed in the wound bed with a size 15 RON also secured in position and the flap was then advanced to allow for adjacent tissue transfer of the medial thigh tissue using #0 and 2-0 Vicryl sutures and multiple interrupted 2-0 Prolene were used to close the skin. Dressings were applied. The patient tolerated the procedure well. The flap insets were tension-free and there were no complications. Davina Banegas M.D. DR: Norma JOB#: [id number] CC:
--- NOTE | 2018-07-04 18:10 | General Progress Note ---
Assessment/Plan Assessment/Plan # Anemia of chronic disease -- hgb currently trending in the 10-11 range, has been stable --> anemia panel has been reviewed and c/w acd, ferritin >100 --> hgb goal is >7, transfuse as required --> no evidence of hemolysis --> okay to follow now is s/p surgery, unlikely major drop # Leukocytosis - with a history of abscess --> trend smear, eval for blasts, and none were noted --> appreciate id recs # Bilateral groin/thigh abscesses/wound infection/hidradenitis suppurativa --> has received surgery for 06/29 and will repeat surgery for closure 07/03 --> on abx as per ID --> appreciate their recs # LIANA given ivf and currently improved --> trend cr as per nephro # DVT ppx with scds, consider heparin sq after surgery Greatly appreciate consultation! Subjective Constitutional: Denies: no symptoms, chills, diaphoresis, fever, malaise, weakness, other HEENT: Denies: no symptoms, eye pain, blurred vision, tearing, double vision, ear pain, ear discharge, nose pain, nose congestion, throat pain, throat swelling, mouth pain, mouth swelling, other Cardiovascular: Denies: no symptoms, chest pain, edema, irregular heart rate, lightheadedness, palpitations, syncope, other Respiratory: Denies: no symptoms, cough, orthopnea, shortness of breath, SOB with excertion, SOB at rest, sputum, stridor, wheezing, other Gastrointestinal/Abdominal: Denies: no symptoms, abdomen distended, abdominal pain, black stools, tarry stools, blood in stool, constipated, diarrhea, difficulty swallowing, nausea, poor appetite, poor fluid intake, rectal bleeding , vomiting, other Genitourinary: Denies: no symptoms, burning, discharge, frequency, flank pain, hematuria, incontinence, pain, urgency, other Neurologic/Psychiatric: Denies: no symptoms, anxiety, depressed, emotional problems, headache, numbness, paresthesia, pre-existing deficit, seizure, tingling, tremors, weakness, other Endocrine: Denies: no symptoms, excessive sweating, flushing, intolerance to cold, intolerance to heat, increased hunger, increased thirst, increased urine, unexplained weight gain, unexplained weight loss, other Hematologic/Lymphatic: Reports: no symptoms Allergies: Coded Allergies: VANCOMYCIN (Verified Allergy, Mild, Itching, 06/29/18) Subjective no f/c, s/op surgery today, no events otherwise noted Objective Last 24 Hour Vital Signs Date Time Temp Pulse Resp B/P (MAP) Pulse Ox O2 Delivery O2 Flow Rate FiO2 07/04/18 16:01 20 07/04/18 15:45 99.4 65 18 117/67 (84) 95 07/04/18 12:00 21 07/04/18 11:45 98.6 67 18 98/59 (72) 98 07/04/18 11:08 Room Air 07/04/18 11:08 98.3 07/04/18 11:05 21 07/04/18 11:00 98.3 68 21 99/54 96 Nasal Cannula 3 07/04/18 10:50 14 07/04/18 10:46 68 20 96 07/04/18 10:45 60 11 98/55 95 Nasal Cannula 3 07/04/18 10:38 13 07/04/18 10:30 61 18 96/55 95 Nasal Cannula 3 07/04/18 10:15 60 15 95/54 95 Nasal Cannula 3 07/04/18 10:00 61 16 98/56 96 Simple Mask 6 07/04/18 09:44 65 16 98/58 96 Simple Mask 6 07/04/18 09:39 77 16 92/51 96 Simple Mask 6 07/04/18 09:34 97.5 72 20 100/56 96 Simple Mask 6 07/04/18 04:00 99.7 75 17 105/60 (75) 97 07/04/18 00:00 99.3 73 17 112/60 (77) 98 07/03/18 21:00 Room Air 07/03/18 20:00 99.6 70 18 125/74 (91) 100 07/03/18 18:37 98.6 65 18 106/65 (79) 99 Intake and Output 07/03/18 07/04/18 18:59 06:59 Intake Total 360 ml 1535.0 ml Output Total 1200 ml Balance 360 ml 335.0 ml Intake Oral 360 ml IV Total 1535.0 ml Output Urine Total 1200 ml # Bowel Movements 1 Laboratory Tests 07/04/18 06:00: White Blood Count 7.6, Red Blood Count 3.50L, Hemoglobin 10.3L, Hematocrit 30.0L , Mean Corpuscular Volume 86, Mean Corpuscular Hemoglobin 29.3, Mean Corpuscular Hemoglobin Concent 34.2, Red Cell Distribution Width 11.0L, Platelet Count 150, Mean Platelet Volume 7.6, Neutrophils (%) (Auto) 81.7H, Lymphocytes (%) (Auto) 10.9L, Monocytes (%) (Auto) 5.9, Eosinophils (%) (Auto) 0.8, Basophils (%) (Auto) 0.6, Sodium Level 139, Potassium Level 4.1, Chloride Level 107, Carbon Dioxide Level 24, Anion Gap 8, Blood Urea Nitrogen 4L, Creatinine 1.5H, Estimat Glomerular Filtration Rate 40.2, Glucose Level 116H, Uric Acid 2.5L, Calcium Level 7.9L, Phosphorus Level 2.4L, Magnesium Level 1.5L , Total Bilirubin 0.4, Aspartate Amino Transf (AST/SGOT) 20, Alanine Aminotransferase (ALT/SGPT) 21, Alkaline Phosphatase 40L, C-Reactive Protein, Quantitative 2.2H, Total Protein 6.4, Albumin 2.9L, Globulin 3.5, Albumin/ Globulin Ratio 0.8L Height (Feet): 5 Height (Inches): 8.00 Weight (Pounds): 140 General Appearance: no apparent distress EENT: normal ENT inspection Neck: normal alignment Cardiovascular: regular rhythm Respiratory/Chest: chest wall non-tender Abdomen: non tender Extremities: non-tender Edema: 1+ Leg (L), 1+ Leg (R) Edema: mild edema Neurologic: no motor/sensory deficits Objective b/l groin rash/erythematous s/p surgery Bonifacio Dhillon MD Jul 04, 2018 18:10
[2018-07-04] MEDS: Fluconazole 100mg tab ORAL SCH (18:16)
[2018-07-04] MEDS: PCA shift volume MISC SCH (19:00)
--- NOTE | 2018-07-04 19:21 | Infectious Diseases Prog Note ---
Assessment/Plan Assessment/Plan ASSESSMENT AND PLAN: 1. bilateral groin/thigh abscesses/wound infection/hidradenitis suppurativa, recent vaginal yeast infection, urine culture with yeast - zyvox and zosyn for now - oral abx upon discharge - augmentin plus doxycycline reasonable for 5 days - diflucan given for yeast infections - allergies - vancomycin - s/p excision and debridement - s/p wound closure - wound care per surgery - monitor labs 2. ARF - renal f/u, monitor creatinine, avoid nephrotoxic abx - cr improved 3. Leukocytosis - resolved. 4. Question UTI with positive urinalysis, urine culture mixed organisms - on zosyn 5. The patient currently has anemia. 6. Allergies, vancomycin. 7. Social history is negative. 8. Family history is noncontributory. 9. MAR was noted. 10. Case discussed with RN. 11. Continue treatment per primary consultants. 12. Notes and records were noted. 13. Orders were entered. Subjective Constitutional: Denies: fever HEENT: Denies: congestion Respiratory: Denies: shortness of breath Cardiovascular: Denies: chest pain Gastrointestinal/Abdominal: Denies: nausea, vomiting, diarrhea Genitourinary: Reports: other - no cohen; Denies: dysuria, hematuria, frequency Neurologic: Denies: headache Psychiatric: Denies: depression Skin: Denies: rash Hematologic: Denies: bleeding Musculoskeletal: Denies: pain Allergies: Coded Allergies: VANCOMYCIN (Verified Allergy, Mild, Itching, 06/29/18) Objective Vital Signs Last 24 Hour Vital Signs Date Time Temp Pulse Resp B/P (MAP) Pulse Ox O2 Delivery O2 Flow Rate FiO2 07/04/18 16:01 20 07/04/18 15:45 99.4 65 18 117/67 (84) 95 07/04/18 12:00 21 07/04/18 11:45 98.6 67 18 98/59 (72) 98 07/04/18 11:08 Room Air 07/04/18 11:08 98.3 07/04/18 11:05 21 07/04/18 11:00 98.3 68 21 99/54 96 Nasal Cannula 3 07/04/18 10:50 14 07/04/18 10:46 68 20 96 07/04/18 10:45 60 11 98/55 95 Nasal Cannula 3 07/04/18 10:38 13 07/04/18 10:30 61 18 96/55 95 Nasal Cannula 3 07/04/18 10:15 60 15 95/54 95 Nasal Cannula 3 07/04/18 10:00 61 16 98/56 96 Simple Mask 6 07/04/18 09:44 65 16 98/58 96 Simple Mask 6 07/04/18 09:39 77 16 92/51 96 Simple Mask 6 07/04/18 09:34 97.5 72 20 100/56 96 Simple Mask 6 07/04/18 04:00 99.7 75 17 105/60 (75) 97 07/04/18 00:00 99.3 73 17 112/60 (77) 98 07/03/18 21:00 Room Air 07/03/18 20:00 99.6 70 18 125/74 (91) 100 Height (Feet): 5 Height (Inches): 8.00 Weight (Pounds): 140 General Appearance: no acute distress HEENT: normocephalic, atraumatic, anicteric, mucous membranes moist Respiratory/Chest: lungs clear, normal breath sounds, no respiratory distress, no accessory muscle use Cardiovascular: normal rate, regular rhythm, no gallop/murmur, no JVD Abdomen: normal bowel sounds, soft, non tender, no organomegaly, non distended Genitourinary: other - no cohen, no cva pain Extremities: no cyanosis Skin: no rash, ulcers - wounds - covered Neurologic/Psychiatric: development specialist II-XII grossly normal, no motor/sensory deficits, alert, oriented x 3, responsive Lymphatic: no neck adenopathy Musculoskeletal: no effusion Objective Labs Test 06/30/18 07:00 06/30/18 17:05 07/01/18 04:10 07/01/18 05:10 White Blood Count 8.7 K/UL (4.8-10.8) 9.0 K/UL (4.8-10.8) Red Blood Count 3.92 M/UL (4.20-5.40) 3.67 M/UL (4.20-5.40) Hemoglobin 11.3 G/DL (12.0-16.0) 10.6 G/DL (12.0-16.0) Hematocrit 33.8 % (37.0-47.0) 31.1 % (37.0-47.0) Mean Corpuscular Volume 86 FL (80-99) 85 FL (80-99) Mean Corpuscular Hemoglobin 28.9 PG (27.0-31.0) 28.8 PG (27.0-31.0) Mean Corpuscular Hemoglobin Concent 33.5 G/DL (32.0-36.0) 34.0 G/DL (32.0-36.0) Red Cell Distribution Width 11.2 % (11.6-14.8) 10.8 % (11.6-14.8) Platelet Count 162 K/UL (150-450) 136 K/UL (150-450) Mean Platelet Volume 7.2 FL (6.5-10.1) 7.1 FL (6.5-10.1) Neutrophils (%) (Auto) 73.8 % (45.0-75.0) 77.6 % (45.0-75.0) Lymphocytes (%) (Auto) 16.8 % (20.0-45.0) 12.7 % (20.0-45.0) Monocytes (%) (Auto) 8.5 % (1.0-10.0) 8.9 % (1.0-10.0) Eosinophils (%) (Auto) 0.6 % (0.0-3.0) 0.5 % (0.0-3.0) Basophils (%) (Auto) 0.5 % (0.0-2.0) 0.4 % (0.0-2.0) Sodium Level 139 MMOL/L (136-145) 138 MMOL/L (136-145) Potassium Level 3.7 MMOL/L (3.5-5.1) 3.0 MMOL/L (3.5-5.1) Chloride Level 104 MMOL/L (98-107) 104 MMOL/L (98-107) Carbon Dioxide Level 27 MMOL/L (21-32) 26 MMOL/L (21-32) Anion Gap 8 mmol/L (5-15) 8 mmol/L (5-15) Blood Urea Nitrogen 12 mg/dL (7-18) 9 mg/dL (7-18) Creatinine 2.5 MG/DL (0.55-1.30) 2.3 MG/DL (0.55-1.30) Estimat Glomerular Filtration Rate 22.3 mL/min (>60) 24.6 mL/min (>60) Glucose Level 100 MG/DL (74-106) 116 MG/DL (74-106) Calcium Level 8.2 MG/DL (8.5-10.1) 8.0 MG/DL (8.5-10.1) C-Reactive Protein, Quantitative 0.7 mg/dL (0.00-0.90) Urine Random Sodium < 20 mmol/L (20-110) Urine Eosinophils None seen (NONE SEEN) Uric Acid 4.6 MG/DL (2.6-7.2) Phosphorus Level 3.6 MG/DL (2.5-4.9) Magnesium Level 1.6 MG/DL (1.8-2.4) Iron Level 50 ug/dL (50-175) Total Iron Binding Capacity 215 ug/dL (250-450) Percent Iron Saturation 23 % (15-50) Unsaturated Iron Binding 165 ug/dL (112-346) Total Bilirubin 0.3 MG/DL (0.2-1.0) Gamma Glutamyl Transpeptidase 18 U/L (5-85) Aspartate Amino Transf (AST/SGOT) 16 U/L (15-37) Alanine Aminotransferase (ALT/SGPT) 12 U/L (12-78) Alkaline Phosphatase 38 U/L (46-116) Total Protein 6.1 G/DL (6.4-8.2) Albumin 2.8 G/DL (3.4-5.0) Globulin 3.3 g/dL Albumin/Globulin Ratio 0.8 (1.0-2.7) Triglycerides Level 78 MG/DL (30-150) Cholesterol Level 131 MG/DL (< 200) LDL Cholesterol 78 mg/dL (<100) HDL Cholesterol 51 MG/DL (40-60) Cholesterol/HDL Ratio 2.6 (3.3-4.4) Vitamin B12 Level 1440 PG/ML (193-986) Folate 19.7 NG/ML (8.6-58.9) Test 07/01/18 18:20 07/02/18 04:00 07/02/18 05:25 07/02/18 14:20 Sodium Level 137 MMOL/L (136-145) 138 MMOL/L (136-145) Potassium Level 3.9 MMOL/L (3.5-5.1) 3.7 MMOL/L (3.5-5.1) Chloride Level 104 MMOL/L (98-107) 106 MMOL/L (98-107) Carbon Dioxide Level 26 MMOL/L (21-32) 27 MMOL/L (21-32) Anion Gap 7 mmol/L (5-15) 5 mmol/L (5-15) Blood Urea Nitrogen 8 mg/dL (7-18) 8 mg/dL (7-18) Creatinine 2.0 MG/DL (0.55-1.30) 2.0 MG/DL (0.55-1.30) Estimat Glomerular Filtration Rate 28.9 mL/min (>60) 28.9 mL/min (>60) Glucose Level 121 MG/DL (74-106) 129 MG/DL (74-106) Calcium Level 8.2 MG/DL (8.5-10.1) 8.0 MG/DL (8.5-10.1) Urine Eosinophils None seen (NONE SEEN) White Blood Count 8.1 K/UL (4.8-10.8) Red Blood Count 3.66 M/UL (4.20-5.40) Hemoglobin 10.4 G/DL (12.0-16.0) Hematocrit 31.1 % (37.0-47.0) Mean Corpuscular Volume 85 FL (80-99) Mean Corpuscular Hemoglobin 28.5 PG (27.0-31.0) Mean Corpuscular Hemoglobin Concent 33.5 G/DL (32.0-36.0) Red Cell Distribution Width 10.8 % (11.6-14.8) Platelet Count 145 K/UL (150-450) Mean Platelet Volume 6.7 FL (6.5-10.1) Neutrophils (%) (Auto) 78.1 % (45.0-75.0) Lymphocytes (%) (Auto) 13.2 % (20.0-45.0) Monocytes (%) (Auto) 7.3 % (1.0-10.0) Eosinophils (%) (Auto) 0.8 % (0.0-3.0) Basophils (%) (Auto) 0.5 % (0.0-2.0) Phosphorus Level 2.9 MG/DL (2.5-4.9) Magnesium Level 2.5 MG/DL (1.8-2.4) Total Bilirubin 0.5 MG/DL (0.2-1.0) Aspartate Amino Transf (AST/SGOT) 13 U/L (15-37) Alanine Aminotransferase (ALT/SGPT) 18 U/L (12-78) Alkaline Phosphatase 36 U/L (46-116) C-Reactive Protein, Quantitative 0.5 mg/dL (0.00-0.90) Total Protein 6.3 G/DL (6.4-8.2) Albumin 3.1 G/DL (3.4-5.0) Globulin 3.2 g/dL Albumin/Globulin Ratio 1.0 (1.0-2.7) Urine Color Pale yellow Urine Appearance Slightly cloudy Urine pH 5 (4.5-8.0) Urine Specific [place] 1.010 (1.005-1.035) Urine Protein 2+ (NEGATIVE) Urine Glucose (UA) Negative (NEGATIVE) Urine Ketones Negative (NEGATIVE) Urine Blood 3+ (NEGATIVE) Urine Nitrite Negative (NEGATIVE) Urine Bilirubin Negative (NEGATIVE) Urine Urobilinogen Normal MG/DL (0.0-1.0) Urine Leukocyte Esterase 3+ (NEGATIVE) Urine RBC 5-10 /HPF (0 - 2) Urine WBC 15-20 /HPF (0 - 2) Urine Squamous Epithelial Cells Occasional /LPF Urine Bacteria Occasional /HPF (NONE) Urine Yeast Many /HPF (NONE) Urine Random Sodium < 20 mmol/L (20-110) Chest x-ray - nad, report noted Microbiology Date/Time Source Procedure Growth Status 07/02/18 14:20 Urine,Clean Catch Urine Culture - Preliminary Yeast Species Resulted Microbiology Date/Time Source Procedure Growth Status 07/02/18 14:20 Urine,Clean Catch Urine Culture - Preliminary Yeast Species Resulted Laboratory Tests Test 07/04/18 06:00 White Blood Count 7.6 K/UL (4.8-10.8) Red Blood Count 3.50 M/UL (4.20-5.40) L Hemoglobin 10.3 G/DL (12.0-16.0) L Hematocrit 30.0 % (37.0-47.0) L Mean Corpuscular Volume 86 FL (80-99) Mean Corpuscular Hemoglobin 29.3 PG (27.0-31.0) Mean Corpuscular Hemoglobin Concent 34.2 G/DL (32.0-36.0) Red Cell Distribution Width 11.0 % (11.6-14.8) L Platelet Count 150 K/UL (150-450) Mean Platelet Volume 7.6 FL (6.5-10.1) Neutrophils (%) (Auto) 81.7 % (45.0-75.0) H Lymphocytes (%) (Auto) 10.9 % (20.0-45.0) L Monocytes (%) (Auto) 5.9 % (1.0-10.0) Eosinophils (%) (Auto) 0.8 % (0.0-3.0) Basophils (%) (Auto) 0.6 % (0.0-2.0) Sodium Level 139 MMOL/L (136-145) Potassium Level 4.1 MMOL/L (3.5-5.1) Chloride Level 107 MMOL/L (98-107) Carbon Dioxide Level 24 MMOL/L (21-32) Anion Gap 8 mmol/L (5-15) Blood Urea Nitrogen 4 mg/dL (7-18) L Creatinine 1.5 MG/DL (0.55-1.30) H Estimat Glomerular Filtration Rate 40.2 mL/min (>60) Glucose Level 116 MG/DL (74-106) H Uric Acid 2.5 MG/DL (2.6-7.2) L Calcium Level 7.9 MG/DL (8.5-10.1) L Phosphorus Level 2.4 MG/DL (2.5-4.9) L Magnesium Level 1.5 MG/DL (1.8-2.4) L Total Bilirubin 0.4 MG/DL (0.2-1.0) Aspartate Amino Transf (AST/SGOT) 20 U/L (15-37) Alanine Aminotransferase (ALT/SGPT) 21 U/L (12-78) Alkaline Phosphatase 40 U/L (46-116) L C-Reactive Protein, Quantitative 2.2 mg/dL (0.00-0.90) H Total Protein 6.4 G/DL (6.4-8.2) Albumin 2.9 G/DL (3.4-5.0) L Globulin 3.5 g/dL Albumin/Globulin Ratio 0.8 (1.0-2.7) L Current Medications Medications (Trade) Dose Ordered Sig/Megan Route PRN Reason Start Time Stop Time Status Last Admin Dose Admin Acetaminophen (Tylenol) 650 mg Q4H PRN ORAL FEVER 06/29/18 11:15 07/29/18 11:14 Acetaminophen (Tylenol) 650 mg Q4H PRN ORAL FEVER 07/04/18 10:30 08/03/18 10:29 Dextrose/ Electrolytes 1,000 ml @ 125 mls/hr Q8H IV 07/02/18 12:00 08/01/18 11:59 07/04/18 11:59 Diphenhydramine HCl (Benadryl) 25 mg Q6H PRN ORAL Itching 06/29/18 00:15 07/29/18 00:14 06/29/18 00:30 Fluconazole (Diflucan) 100 mg Q24H ORAL 07/04/18 18:00 07/11/18 17:59 07/04/18 18:16 Heparin Sodium (Porcine) (Heparin 5000 units/ml) 5,000 units EVERY 12 HOURS SUBQ 07/04/18 12:00 08/03/18 11:59 07/04/18 12:09 Hydromorphone HCl 30 ml @ 0 mls/hr Q24H PRN IV For Pain 07/04/18 11:00 07/06/18 10:59 07/04/18 10:38 Linezolid 300 ml @ 300 mls/hr EVERY 12 HOURS IVPB 07/04/18 21:00 07/11/18 20:59 Miscellaneous Medication (DIAL LATHE OPERATOR Rate Change) 1 ea DAILY PRN MISC rate change 07/04/18 11:00 07/06/18 10:59 Miscellaneous Medication (DIAL LATHE OPERATOR shift volume) 1 ea Q12HR@0700,1900 MISC 07/04/18 19:00 07/06/18 18:59 07/04/18 19:00 Morphine Sulfate (Morphine Sulfate) 1 mg Q4H PRN IVP pain 07/01/18 16:45 07/08/18 16:44 07/03/18 20:47 Ondansetron HCl (Zofran) 4 mg Q6H PRN IVP Nausea & Vomiting 07/04/18 12:00 08/03/18 11:59 07/04/18 14:21 Pantoprazole (Protonix) 40 mg DAILY ORAL 07/01/18 09:00 07/31/18 08:59 07/04/18 11:51 Piperacillin Sod/ Tazobactam Sod 3.375 gm/Dextrose 110 ml @ 27.5 mls/hr Q12HR IVPB 07/04/18 21:00 07/09/18 23:59 Polyethylene Glycol (Miralax) 17 gm DAILY PRN ORAL Constipation 07/02/18 18:00 08/01/18 17:59 Potassium Phosphate 15 mm/ Sodium Chloride 280 ml @ 46.667 mls/ hr ONCE ONCE IV 07/04/18 16:00 07/04/18 21:59 07/04/18 15:59 Sennosides (Senokot) 8.6 mg DAILYPRN PRN ORAL Constipation 06/28/18 13:45 07/28/18 13:44 Zolpidem Tartrate (Ambien) 5 mg DAILYPRN PRN ORAL Insomnia 06/29/18 20:00 07/06/18 19:59 Joseph Brooks MD Jul 04, 2018 19:21
[2018-07-04] MEDS ORDERED: Piperacillin/Tazobactam 3.375 GM in D5W 110 ML IVPB SCH (21:00)
[2018-07-05] VITALS (14 sets, daily range): BP systolic 105–125; BP diastolic 59–70
[2018-07-05] MEDS: Piperacillin/Tazobactam 3.375 GM in D5W 110 ML IVPB SCH ×3 (05:01→22:00)
--- NOTE | 2018-07-05 06:20 | 48 Hour Post Anesthesia Eval ---
Post Anesthesia Evaluation Procedure: Revision and closure of bilarteral groin wounds Date of Evaluation: Jul 05, 2018 Time of Evaluation: 06:20 Blood Pressure Systolic: 105 0: 84 Pulse Rate: 65 Respiratory Rate: 18 Temperature (Fahrenheit): 98.8 O2 Sat by Pulse Oximetry: 95 Airway: patent Nausea: No Vomiting: No Pain Intensity: 2 Hydration Status: adequate Cardiopulmonary Status: Stable Mental Status/LOC: patient returned to baseline Follow-up Care/Observations: 0 Post-Anesthesia Complications: 0 Follow-up care needed: N/A Rebel Bose MD Jul 05, 2018 06:20
[2018-07-05] MEDS: PCA shift volume MISC SCH ×2 (07:12→19:00)
--- NOTE | 2018-07-05 08:39 | General Progress Note ---
Assessment/Plan Problem List: (1) Acute respiratory failure with hypoxia ICD Codes: J96.01 - Acute respiratory failure with hypoxia SNOMED: 97078043, 867983626 (2) Pain ICD Codes: R52 - Pain, unspecified SNOMED: 89011547 (3) Cellulitis ICD Codes: L03.90 - Cellulitis, unspecified SNOMED: 558047100 (4) Abscess ICD Codes: L02.91 - Cutaneous abscess, unspecified SNOMED: 966868695 (5) Hidradenitis suppurativa ICD Codes: L73.2 - Hidradenitis suppurativa SNOMED: 59181612 (6) LIANA (acute kidney injury) ICD Codes: N17.9 - Acute kidney failure, unspecified SNOMED: 97203490 (7) Constipation ICD Codes: K59.00 - Constipation, unspecified SNOMED: 09073749 (8) UTI (urinary tract infection) ICD Codes: N39.0 - Urinary tract infection, site not specified SNOMED: 62445346 Qualifiers: Qualified Codes: N30.00 - Acute cystitis without hematuria Assessment/Plan #Acute Hypoxic Respiratory Failure #Fever coughs and fever of 102 overnight currently on abx pending cxr concerned about atelectasis started on 3L NCL as patient desating to 79% off oxygen breathing tx ordered #Abscess #Cellulitis #Hidradenitis Suppurative #Pain s/p excision 06/29/18, plan to OR for closure today fitness trainer cont abx per ID recs continue excellent post op care prophylactic anticoagulation per surgery, Incentive Spirometry, abx iv, pain control #allergic reaction to vancomycin vanco stopped, abx per ID #LIANA Cr improving now, 1.1 today avoid nephrotoxic meds appreciate nephro recs #Constipation continue bowel care, has had multiple BMs yesterday, no n/v, feeing much better #UTI - diflucan given for yeast infection ppx: scd diet: regular Agustin Pearson[facility] will required an estimated 3-5 midnights stay due to antibiotic management along with procedures required by plastic surgery. I spent over 65 minutes on this patient's case, and over 40 minutes was dedicated to counseling and/or care coordination. Subjective Date patient seen: Jul 05, 2018 Time patient seen: 08:31 Allergies: Coded Allergies: VANCOMYCIN (Verified Allergy, Mild, Itching, 06/29/18) Subjective f/u inguinal abscesses with surrounding cellulitis concerns for hydradenitis suppurativa, LIANA and new acute hypoxic respiratory failure had fever 102 overnight mild sob and coughs with wheezing placed on 3L NCL concerns for atelectasis vs fluid overload fluids stopped vitals stable breathing tx and cxr ordered ROS: 14 point ROS reviewed and negative except for the above Objective Last 24 Hour Vital Signs Date Time Temp Pulse Resp B/P (MAP) Pulse Ox O2 Delivery O2 Flow Rate FiO2 07/05/18 06:20 65 18 95 07/05/18 04:00 18 07/05/18 04:00 98.8 65 18 105/64 (78) 95 07/05/18 00:00 98.8 68 17 108/66 (80) 96 07/05/18 00:00 18 07/04/18 21:00 Room Air 07/04/18 20:00 98.6 68 17 110/65 (80) 97 07/04/18 20:00 17 07/04/18 16:01 20 07/04/18 15:45 99.4 65 18 117/67 (84) 95 07/04/18 12:00 21 07/04/18 11:45 98.6 67 18 98/59 (72) 98 07/04/18 11:08 Room Air 07/04/18 11:08 98.3 07/04/18 11:05 21 07/04/18 11:00 98.3 68 21 99/54 96 Nasal Cannula 3 07/04/18 10:50 14 07/04/18 10:46 68 20 96 07/04/18 10:45 60 11 98/55 95 Nasal Cannula 3 07/04/18 10:38 13 07/04/18 10:30 61 18 96/55 95 Nasal Cannula 3 07/04/18 10:15 60 15 95/54 95 Nasal Cannula 3 07/04/18 10:00 61 16 98/56 96 Simple Mask 6 07/04/18 09:44 65 16 98/58 96 Simple Mask 6 07/04/18 09:39 77 16 92/51 96 Simple Mask 6 07/04/18 09:34 97.5 72 20 100/56 96 Simple Mask 6 Intake and Output 07/04/18 07/05/18 19:00 07:00 Intake Total 2701.0 ml 1400 ml Output Total 815 ml 850 ml Balance 1886.0 ml 550 ml Intake Oral 800 ml 400 ml IV Total 1901.0 ml 1000 ml Output Urine Total 700 ml 800 ml Drainage Total 75 ml 50 ml Estimated Blood Loss 40 ml Height (Feet): 5 Height (Inches): 8.00 Weight (Pounds): 140 Objective General Appearance: WD/WN, no apparent distress, alert EENT: PERRL/EOMI, normal ENT inspection, TMs normal, pharynx normal Neck: non-tender, normal alignment, supple, normal inspection Cardiovascular: normal peripheral pulses, normal rate, regular rhythm Respiratory/Chest: chest wall non-tender,b/l lower lobe crackles and wheezing appreciated, mild respiratory distress, no accessory muscle use Abdomen: normal bowel sounds, non tender, soft, no organomegaly, no mass Extremities: normal range of motion, non-tender, normal inspection Neurologic: crisis therapist II-XII grossly normal, no motor/sensory deficits, alert, oriented x 3, responsive, normal mood/affect Skin: normal pigmentation, warm/dry Agustin Heredia MD Jul 05, 2018 08:39
[2018-07-05] MEDS ORDERED: Albuterol/Ipratropium 3ml neb ONE (08:49)
[2018-07-05] MEDS: Albuterol/Ipratropium 3ml neb HHN SCH ×4 (08:51→23:00)
[2018-07-05] MEDS: Guaifenesin/DM 10ml syrup ORAL PRN ×2 (09:27→15:33)
[2018-07-05] MEDS: Heparin 5000 units/ml inj SUBQ SCH ×2 (09:30→21:12)
[2018-07-05 10:15] LABS: ANION GAP 10 mmol/L (5-15); BLOOD UREA NITROGEN 1 mg/dL (7-18); CARBON DIOXIDE 22 MMOL/L (21-32); CHLORIDE 104 MMOL/L (98-107); CREATININE 1.3 MG/DL (0.55-1.30); POTASSIUM 4.2 MMOL/L (3.5-5.1); SODIUM 136 MMOL/L (136-145)
--- NOTE | 2018-07-05 10:44 | Diagnostic Imaging Report ---
Indication: Shortness of breath Technique: One view of the chest Comparison: 06/28/2018 Findings: Interim development of bilateral mid and lower lung infiltrates versus edema, bilateral pleural effusions. The heart size is normal Impression: Bilateral basilar infiltrates versus edema, and bilateral pleural effusions, developing since 06/28/2018
[2018-07-05] MEDS ORDERED: Albuterol/Ipratropium 3ml neb HHN SCH (11:00)
--- NOTE | 2018-07-05 12:26 | Nephrology Progress Note ---
Assessment/Plan Problem List: (1) Acute renal failure Assessment: Cr wnl (2) UTI (urinary tract infection) (3) Hidradenitis suppurativa (4) Cellulitis Assessment acute renal failure Cr wnl Hypotension Pain Cellulitis Abcess / Hidradenitis suppurativea UTI Plan K and Mag , phos supplement as needed stop IV Lasix one dose was given Urine studies Avoid Nephrotoxics Monitor renal parameters Antibiotics per ID CXR bilat lower process Bilateral basilar infiltrates versus edema, and bilateral pleural effusions, developing since 06/28/2018 Subjective ROS Limited/Unobtainable: No Constitutional: Reports: malaise, weakness, other - SOB Objective Objective Last 24 Hour Vital Signs Date Time Temp Pulse Resp B/P (MAP) Pulse Ox O2 Delivery O2 Flow Rate FiO2 07/05/18 12:04 82 22 Nasal Cannula 3.0 32 07/05/18 12:04 84 22 Bi-pap 30 07/05/18 12:00 100.2 95 17 115/63 (80) 70 07/05/18 12:00 18 07/05/18 09:00 Room Air 07/05/18 08:59 87 22 94 Nasal Cannula 3.0 32 07/05/18 08:59 92 Nasal Cannula 3.0 32 07/05/18 08:58 Nasal Cannula 3.0 32 07/05/18 08:57 86 22 Nasal Cannula 3.0 32 07/05/18 08:56 86 22 92 Nasal Cannula 3.0 32 07/05/18 08:00 18 07/05/18 08:00 102.5 97 18 113/68 (83) 76 07/05/18 06:20 65 18 95 07/05/18 04:00 18 07/05/18 04:00 98.8 65 18 105/64 (78) 95 07/05/18 00:00 98.8 68 17 108/66 (80) 96 07/05/18 00:00 18 07/04/18 21:00 Room Air 07/04/18 20:00 98.6 68 17 110/65 (80) 97 07/04/18 20:00 17 07/04/18 16:01 20 07/04/18 15:45 99.4 65 18 117/67 (84) 95 Intake and Output 07/04/18 07/05/18 19:00 07:00 Intake Total 2701.0 ml 1400 ml Output Total 815 ml 850 ml Balance 1886.0 ml 550 ml Intake Oral 800 ml 400 ml IV Total 1901.0 ml 1000 ml Output Urine Total 700 ml 800 ml Drainage Total 75 ml 50 ml Estimated Blood Loss 40 ml Laboratory Tests 07/05/18 09:40: Sodium Level 136, Potassium Level 4.2, Chloride Level 104, Carbon Dioxide Level 22, Anion Gap 10, Blood Urea Nitrogen 1L, Creatinine 1.3, Estimat Glomerular Filtration Rate 47.5, Glucose Level 128H, Calcium Level 8.0L Height (Feet): 5 Height (Inches): 8.00 Weight (Pounds): 140 General Appearance: mild distress, other - febrile Cardiovascular: tachycardia Respiratory/Chest: decreased breath sounds Abdomen: soft Objective no change Ilan Nelson MD Jul 05, 2018 12:26
--- NOTE | 2018-07-05 13:33 | General Progress Note ---
Progress Note Progress Note Pt seen and examined. POD# 1 from closure of bilateral groin wounds. Having some SOB/cough. CXR normal and ABG pending. Will get pulmonary involved to see the patient. Davina Banegas .M.D. Davina Banegas MD Jul 05, 2018 13:33
--- NOTE | 2018-07-05 14:52 | General Progress Note ---
Assessment/Plan Status: unchanged Assessment/Plan # Anemia of chronic disease -- hgb currently trending in the 10-11 range, has been stable --> anemia panel has been reviewed and c/w acd, ferritin >100 --> hgb goal is >7, transfuse as required --> no evidence of hemolysis --> okay to follow now is s/p surgery, unlikely major drop # Leukocytosis - with a history of abscess --> Improved/Resolved --> trend smear, eval for blasts, and none were noted --> appreciate id recs # Bilateral groin/thigh abscesses/wound infection/hidradenitis suppurativa --> has received surgery for 06/29 and will repeat surgery for closure 07/03 --> on abx as per ID --> appreciate their recs # LIANA given ivf and currently improved --> trend cr as per nephro # DVT ppx with scds, consider heparin sq after surgery Greatly appreciate consultation! Subjective Date patient seen: Jul 05, 2018 Hematologic/Lymphatic: Reports: anemia Allergies: Coded Allergies: VANCOMYCIN (Verified Allergy, Mild, Itching, 06/29/18) All Systems: reviewed and negative except above Subjective Pt awake and alert. Pt on NRB. Pulm has been consulted for low O2 sat. CXR today shows bilateral basilar infiltrates versus edema, and bilateral pleural effusions. H/H stable. Remains on abx. Objective Last 24 Hour Vital Signs Date Time Temp Pulse Resp B/P (MAP) Pulse Ox O2 Delivery O2 Flow Rate FiO2 07/05/18 12:47 99.6 07/05/18 12:04 82 22 Nasal Cannula 3.0 32 07/05/18 12:04 84 22 Bi-pap 30 07/05/18 12:00 100.2 95 17 115/63 (80) 70 07/05/18 12:00 18 07/05/18 09:00 Room Air 07/05/18 08:59 87 22 94 Nasal Cannula 3.0 32 07/05/18 08:59 92 Nasal Cannula 3.0 32 07/05/18 08:58 Nasal Cannula 3.0 32 07/05/18 08:57 86 22 Nasal Cannula 3.0 32 07/05/18 08:56 86 22 92 Nasal Cannula 3.0 32 07/05/18 08:00 18 12/18/18 08:00 102.5 97 18 113/68 (83) 76 07/05/18 06:20 65 18 95 07/05/18 04:00 18 07/05/18 04:00 98.8 65 18 105/64 (78) 95 07/05/18 00:00 98.8 68 17 108/66 (80) 96 07/05/18 00:00 18 07/04/18 21:00 Room Air 07/04/18 20:00 98.6 68 17 110/65 (80) 97 07/04/18 20:00 17 07/04/18 16:01 20 07/04/18 15:45 99.4 65 18 117/67 (84) 95 Intake and Output 07/04/18 07/05/18 19:00 07:00 Intake Total 2701.0 ml 1400 ml Output Total 815 ml 850 ml Balance 1886.0 ml 550 ml Intake Oral 800 ml 400 ml IV Total 1901.0 ml 1000 ml Output Urine Total 700 ml 800 ml Drainage Total 75 ml 50 ml Estimated Blood Loss 40 ml Laboratory Tests 07/05/18 09:40: Sodium Level 136, Potassium Level 4.2, Chloride Level 104, Carbon Dioxide Level 22, Anion Gap 10, Blood Urea Nitrogen 1L, Creatinine 1.3, Estimat Glomerular Filtration Rate 47.5, Glucose Level 128H, Calcium Level 8.0L 07/05/18 13:35: Arterial Blood pH 7.443, Arterial Blood Partial Pressure CO2 32.3L, Arterial Blood Partial Pressure O2 36.9*L, Arterial Blood HCO3 21.6L, Arterial Blood Oxygen Saturation 73.0*L, Arterial Blood Base Excess -1.9, Jordon Test Positive Height (Feet): 5 Height (Inches): 8.00 Weight (Pounds): 140 Objective b/l groin rash/erythematous s/p surgery Bonifacio Dhillon MD Jul 05, 2018 14:52
--- NOTE | 2018-07-05 15:47 | Pulmonology Progress Note ---
Assessment/Plan Assessment/Plan Pulmonary Consultation Patient is a 33 year old woman s/p surgery on 06/29/2018;07/03/2018 for bilateral groin/thigh abscesses/wound infection/hidradenitis suppurativa, on antibiotics as per ID, post operative LIANA given ivf and currently improved Other problems: # Anemia of chronic disease -- hgb currently trending in the 10-11 range, has been stable # DVT ppx with scds, consider heparin sq after surgery # Vaginal yeast infection, urine culture with yeast Objective Height (Feet): 5 Height (Inches): 8.00 Weight (Pounds): 140 General Appearance: no acute distress HEENT: normocephalic, atraumatic, anicteric, mucous membranes moist Respiratory/Chest: lungs clear, normal breath sounds, no respiratory distress, no accessory muscle use Cardiovascular: normal rate, regular rhythm, no gallop/murmur, no JVD Abdomen: normal bowel sounds, soft, non tender, no organomegaly, non distended Genitourinary: other - no cohen, no cva pain Extremities: no cyanosis Skin: no rash, ulcers - wounds - covered Neurologic/Psychiatric: generation mechanic helper II-XII grossly normal, no motor/sensory deficits, alert, oriented x 3, responsive Lymphatic: no neck adenopathy Musculoskeletal: no effusion Assessment: Shortness of breath, need to R/o PE/DVT Recheck ABG PRN HHN/BiPAP Negative fluid balance - defer to Renal Monitor labs DVT PPX - start SQ Heparin acute renal failure Cellulitis Abscess / Hidradenitis suppurativa - antibiotics per ID: - zyvox and zosyn - s/p excision and debridement - s/p wound closure - wound care per surgery - monitor labs Labs CXR: Bilateral interstitial change and effusions Test 06/30/18 07:00 06/30/18 17:05 07/01/18 04:10 07/01/18 05:10 White Blood Count 8.7 K/UL (4.8-10.8) 9.0 K/UL (4.8-10.8) Red Blood Count 3.92 M/UL (4.20-5.40) 3.67 M/UL (4.20-5.40) Hemoglobin 11.3 G/DL (12.0-16.0) 10.6 G/DL (12.0-16.0) Hematocrit 33.8 % (37.0-47.0) 31.1 % (37.0-47.0) Mean Corpuscular Volume 86 FL (80-99) 85 FL (80-99) Mean Corpuscular Hemoglobin 28.9 PG (27.0-31.0) 28.8 PG (27.0-31.0) Mean Corpuscular Hemoglobin Concent 33.5 G/DL (32.0-36.0) 34.0 G/DL (32.0-36.0) Red Cell Distribution Width 11.2 % (11.6-14.8) 10.8 % (11.6-14.8) Platelet Count 162 K/UL (150-450) 136 K/UL (150-450) Mean Platelet Volume 7.2 FL (6.5-10.1) 7.1 FL (6.5-10.1) Neutrophils (%) (Auto) 73.8 % (45.0-75.0) 77.6 % (45.0-75.0) Lymphocytes (%) (Auto) 16.8 % (20.0-45.0) 12.7 % (20.0-45.0) Monocytes (%) (Auto) 8.5 % (1.0-10.0) 8.9 % (1.0-10.0) Eosinophils (%) (Auto) 0.6 % (0.0-3.0) 0.5 % (0.0-3.0) Basophils (%) (Auto) 0.5 % (0.0-2.0) 0.4 % (0.0-2.0) Sodium Level 139 MMOL/L (136-145) 138 MMOL/L (136-145) Potassium Level 3.7 MMOL/L (3.5-5.1) 3.0 MMOL/L (3.5-5.1) Chloride Level 104 MMOL/L (98-107) 104 MMOL/L (98-107) Carbon Dioxide Level 27 MMOL/L (21-32) 26 MMOL/L (21-32) Anion Gap 8 mmol/L (5-15) 8 mmol/L (5-15) Blood Urea Nitrogen 12 mg/dL (7-18) 9 mg/dL (7-18) Creatinine 2.5 MG/DL (0.55-1.30) 2.3 MG/DL (0.55-1.30) Estimat Glomerular Filtration Rate 22.3 mL/min (>60) 24.6 mL/min (>60) Glucose Level 100 MG/DL (74-106) 116 MG/DL (74-106) Calcium Level 8.2 MG/DL (8.5-10.1) 8.0 MG/DL (8.5-10.1) C-Reactive Protein, Quantitative 0.7 mg/dL (0.00-0.90) Urine Random Sodium < 20 mmol/L (20-110) Urine Eosinophils None seen (NONE SEEN) Uric Acid 4.6 MG/DL (2.6-7.2) Phosphorus Level 3.6 MG/DL (2.5-4.9) Magnesium Level 1.6 MG/DL (1.8-2.4) Iron Level 50 ug/dL (50-175) Total Iron Binding Capacity 215 ug/dL (250-450) Percent Iron Saturation 23 % (15-50) Unsaturated Iron Binding 165 ug/dL (112-346) Total Bilirubin 0.3 MG/DL (0.2-1.0) Gamma Glutamyl Transpeptidase 18 U/L (5-85) Aspartate Amino Transf (AST/SGOT) 16 U/L (15-37) Alanine Aminotransferase (ALT/SGPT) 12 U/L (12-78) Alkaline Phosphatase 38 U/L (46-116) Total Protein 6.1 G/DL (6.4-8.2) Albumin 2.8 G/DL (3.4-5.0) Globulin 3.3 g/dL Albumin/Globulin Ratio 0.8 (1.0-2.7) Triglycerides Level 78 MG/DL (30-150) Cholesterol Level 131 MG/DL (< 200) LDL Cholesterol 78 mg/dL (<100) HDL Cholesterol 51 MG/DL (40-60) Cholesterol/HDL Ratio 2.6 (3.3-4.4) Vitamin B12 Level 1440 PG/ML (193-986) Folate 19.7 NG/ML (8.6-58.9) Test 07/01/18 18:20 07/02/18 04:00 07/02/18 05:25 07/02/18 14:20 Sodium Level 137 MMOL/L (136-145) 138 MMOL/L (136-145) Potassium Level 3.9 MMOL/L (3.5-5.1) 3.7 MMOL/L (3.5-5.1) Chloride Level 104 MMOL/L (98-107) 106 MMOL/L (98-107) Carbon Dioxide Level 26 MMOL/L (21-32) 27 MMOL/L (21-32) Anion Gap 7 mmol/L (5-15) 5 mmol/L (5-15) Blood Urea Nitrogen 8 mg/dL (7-18) 8 mg/dL (7-18) Creatinine 2.0 MG/DL (0.55-1.30) 2.0 MG/DL (0.55-1.30) Estimat Glomerular Filtration Rate 28.9 mL/min (>60) 28.9 mL/min (>60) Glucose Level 121 MG/DL (74-106) 129 MG/DL (74-106) Calcium Level 8.2 MG/DL (8.5-10.1) 8.0 MG/DL (8.5-10.1) Urine Eosinophils None seen (NONE SEEN) White Blood Count 8.1 K/UL (4.8-10.8) Red Blood Count 3.66 M/UL (4.20-5.40) Hemoglobin 10.4 G/DL (12.0-16.0) Hematocrit 31.1 % (37.0-47.0) Mean Corpuscular Volume 85 FL (80-99) Mean Corpuscular Hemoglobin 28.5 PG (27.0-31.0) Mean Corpuscular Hemoglobin Concent 33.5 G/DL (32.0-36.0) Red Cell Distribution Width 10.8 % (11.6-14.8) Platelet Count 145 K/UL (150-450) Mean Platelet Volume 6.7 FL (6.5-10.1) Neutrophils (%) (Auto) 78.1 % (45.0-75.0) Lymphocytes (%) (Auto) 13.2 % (20.0-45.0) Monocytes (%) (Auto) 7.3 % (1.0-10.0) Eosinophils (%) (Auto) 0.8 % (0.0-3.0) Basophils (%) (Auto) 0.5 % (0.0-2.0) Phosphorus Level 2.9 MG/DL (2.5-4.9) Magnesium Level 2.5 MG/DL (1.8-2.4) Total Bilirubin 0.5 MG/DL (0.2-1.0) Aspartate Amino Transf (AST/SGOT) 13 U/L (15-37) Alanine Aminotransferase (ALT/SGPT) 18 U/L (12-78) Alkaline Phosphatase 36 U/L (46-116) C-Reactive Protein, Quantitative 0.5 mg/dL (0.00-0.90) Total Protein 6.3 G/DL (6.4-8.2) Albumin 3.1 G/DL (3.4-5.0) Globulin 3.2 g/dL Albumin/Globulin Ratio 1.0 (1.0-2.7) Urine Color Pale yellow Urine Appearance Slightly cloudy Urine pH 5 (4.5-8.0) Urine Specific [place] 1.010 (1.005-1.035) Urine Protein 2+ (NEGATIVE) Urine Glucose (UA) Negative (NEGATIVE) Urine Ketones Negative (NEGATIVE) Urine Blood 3+ (NEGATIVE) Urine Nitrite Negative (NEGATIVE) Urine Bilirubin Negative (NEGATIVE) Urine Urobilinogen Normal MG/DL (0.0-1.0) Urine Leukocyte Esterase 3+ (NEGATIVE) Urine RBC 5-10 /HPF (0 - 2) Urine WBC 15-20 /HPF (0 - 2) Urine Squamous Epithelial Cells Occasional /LPF Urine Bacteria Occasional /HPF (NONE) Urine Yeast Many /HPF (NONE) Urine Random Sodium < 20 mmol/L (20-110) Chest x-ray - nad, report noted Microbiology Date/Time Source Procedure Growth Status 07/02/18 14:20 Urine,Clean Catch Urine Culture - Preliminary Yeast Species Resulted Microbiology Date/Time Source Procedure Growth Status 07/02/18 14:20 Urine,Clean Catch Urine Culture - Preliminary Yeast Species Resulted Laboratory Tests Test 07/04/18 06:00 White Blood Count 7.6 K/UL (4.8-10.8) Red Blood Count 3.50 M/UL (4.20-5.40) L Hemoglobin 10.3 G/DL (12.0-16.0) L Hematocrit 30.0 % (37.0-47.0) L Mean Corpuscular Volume 86 FL (80-99) Mean Corpuscular Hemoglobin 29.3 PG (27.0-31.0) Mean Corpuscular Hemoglobin Concent 34.2 G/DL (32.0-36.0) Red Cell Distribution Width 11.0 % (11.6-14.8) L Platelet Count 150 K/UL (150-450) Mean Platelet Volume 7.6 FL (6.5-10.1) Neutrophils (%) (Auto) 81.7 % (45.0-75.0) H Lymphocytes (%) (Auto) 10.9 % (20.0-45.0) L Monocytes (%) (Auto) 5.9 % (1.0-10.0) Eosinophils (%) (Auto) 0.8 % (0.0-3.0) Basophils (%) (Auto) 0.6 % (0.0-2.0) Sodium Level 139 MMOL/L (136-145) Potassium Level 4.1 MMOL/L (3.5-5.1) Chloride Level 107 MMOL/L (98-107) Carbon Dioxide Level 24 MMOL/L (21-32) Anion Gap 8 mmol/L (5-15) Blood Urea Nitrogen 4 mg/dL (7-18) L Creatinine 1.5 MG/DL (0.55-1.30) H Estimat Glomerular Filtration Rate 40.2 mL/min (>60) Glucose Level 116 MG/DL (74-106) H Uric Acid 2.5 MG/DL (2.6-7.2) L Calcium Level 7.9 MG/DL (8.5-10.1) L Phosphorus Level 2.4 MG/DL (2.5-4.9) L Magnesium Level 1.5 MG/DL (1.8-2.4) L Total Bilirubin 0.4 MG/DL (0.2-1.0) Aspartate Amino Transf (AST/SGOT) 20 U/L (15-37) Alanine Aminotransferase (ALT/SGPT) 21 U/L (12-78) Alkaline Phosphatase 40 U/L (46-116) L C-Reactive Protein, Quantitative 2.2 mg/dL (0.00-0.90) H Total Protein 6.4 G/DL (6.4-8.2) Albumin 2.9 G/DL (3.4-5.0) L Globulin 3.5 g/dL Albumin/Globulin Ratio 0.8 (1.0-2.7) L Current Medications Medications (Trade) Dose Ordered Sig/Megan Route PRN Reason Start Time Stop Time Status Last Admin Dose Admin Acetaminophen (Tylenol) 650 mg Q4H PRN ORAL FEVER 06/29/18 11:15 07/29/18 11:14 Acetaminophen (Tylenol) 650 mg Q4H PRN ORAL FEVER 07/04/18 10:30 08/03/18 10:29 Dextrose/ Electrolytes 1,000 ml @ 125 mls/hr Q8H IV 07/02/18 12:00 08/01/18 11:59 07/04/18 11:59 Diphenhydramine HCl (Benadryl) 25 mg Q6H PRN ORAL Itching 06/29/18 00:15 07/29/18 00:14 06/29/18 00:30 Fluconazole (Diflucan) 100 mg Q24H ORAL 07/04/18 18:00 07/11/18 17:59 07/04/18 18:16 Heparin Sodium (Porcine) (Heparin 5000 units/ml) 5,000 units EVERY 12 HOURS SUBQ 07/04/18 12:00 08/03/18 11:59 07/04/18 12:09 Hydromorphone HCl 30 ml @ 0 mls/hr Q24H PRN IV For Pain 07/04/18 11:00 07/06/18 10:59 07/04/18 10:38 Linezolid 300 ml @ 300 mls/hr EVERY 12 HOURS IVPB 07/04/18 21:00 07/11/18 20:59 Miscellaneous Medication (ANIMAL SERVICES OFFICER Rate Change) 1 ea DAILY PRN MISC rate change 07/04/18 11:00 07/06/18 10:59 Miscellaneous Medication (ANIMAL SERVICES OFFICER shift volume) 1 ea Q12HR@0700,1900 MISC 07/04/18 19:00 07/06/18 18:59 07/04/18 19:00 Morphine Sulfate (Morphine Sulfate) 1 mg Q4H PRN IVP pain 07/01/18 16:45 07/08/18 16:44 07/03/18 20:47 Ondansetron HCl (Zofran) 4 mg Q6H PRN IVP Nausea & Vomiting 07/04/18 12:00 08/03/18 11:59 07/04/18 14:21 Pantoprazole (Protonix) 40 mg DAILY ORAL 07/01/18 09:00 07/31/18 08:59 07/04/18 11:51 Piperacillin Sod/ Tazobactam Sod 3.375 gm/Dextrose 110 ml @ 27.5 mls/hr Q12HR IVPB 07/04/18 21:00 07/09/18 23:59 Polyethylene Glycol (Miralax) 17 gm DAILY PRN ORAL Constipation 07/02/18 18:00 08/01/18 17:59 Potassium Phosphate 15 mm/ Sodium Chloride 280 ml @ 46.667 mls/ hr ONCE ONCE IV 07/04/18 16:00 07/04/18 21:59 07/04/18 15:59 Sennosides (Senokot) 8.6 mg DAILYPRN PRN ORAL Constipation 06/28/18 13:45 07/28/18 13:44 Zolpidem Tartrate (Ambien) 5 mg DAILYPRN PRN ORAL Insomnia 06/29/18 20:00 07/06/18 19:59 Subjective Respiratory: Reports: shortness of breath Allergies: Coded Allergies: VANCOMYCIN (Verified Allergy, Mild, Itching, 06/29/18) Objective Last 24 Hour Vital Signs Date Time Temp Pulse Resp B/P (MAP) Pulse Ox O2 Delivery O2 Flow Rate FiO2 07/05/18 15:30 99.0 86 18 109/62 (78) 93 07/05/18 14:30 99.6 95 18 110/60 (77) 88 07/05/18 12:47 99.6 07/05/18 12:04 82 22 Nasal Cannula 3.0 32 07/05/18 12:04 84 22 Bi-pap 30 07/05/18 12:00 100.2 95 17 115/63 (80) 70 07/05/18 12:00 18 07/05/18 09:00 Room Air 07/05/18 08:59 87 22 94 Nasal Cannula 3.0 32 07/05/18 08:59 92 Nasal Cannula 3.0 32 07/05/18 08:58 Nasal Cannula 3.0 32 07/05/18 08:57 86 22 Nasal Cannula 3.0 32 07/05/18 08:56 86 22 92 Nasal Cannula 3.0 32 07/05/18 08:00 18 07/05/18 08:00 102.5 97 18 113/68 (83) 76 07/05/18 06:20 65 18 95 07/05/18 04:00 18 07/05/18 04:00 98.8 65 18 105/64 (78) 95 07/05/18 00:00 98.8 68 17 108/66 (80) 96 07/05/18 00:00 18 07/04/18 21:00 Room Air 07/04/18 20:00 98.6 68 17 110/65 (80) 97 07/04/18 20:00 17 07/04/18 16:01 20 07/04/18 15:45 99.4 65 18 117/67 (84) 95 Intake and Output 07/04/18 07/05/18 18:59 06:59 Intake Total 2529.0 ml 1572 ml Output Total 815 ml 850 ml Balance 1714.0 ml 722 ml Intake Oral 800 ml 400 ml IV Total 1729.0 ml 1172 ml Output Urine Total 700 ml 800 ml Drainage Total 75 ml 50 ml Estimated Blood Loss 40 ml Laboratory Tests 07/05/18 09:40: Sodium Level 136, Potassium Level 4.2, Chloride Level 104, Carbon Dioxide Level 22, Anion Gap 10, Blood Urea Nitrogen 1L, Creatinine 1.3, Estimat Glomerular Filtration Rate 47.5, Glucose Level 128H, Calcium Level 8.0L 07/05/18 13:35: Arterial Blood pH 7.443, Arterial Blood Partial Pressure CO2 32.3L, Arterial Blood Partial Pressure O2 36.9*L, Arterial Blood HCO3 21.6L, Arterial Blood Oxygen Saturation 73.0*L, Arterial Blood Base Excess -1.9, Jordon Test Positive Current Medications Medications (Trade) Dose Ordered Sig/Megan Route PRN Reason Start Time Stop Time Status Last Admin Dose Admin Acetaminophen (Tylenol) 650 mg Q4H PRN ORAL FEVER 06/29/18 11:15 07/29/18 11:14 07/05/18 12:17 Acetaminophen (Tylenol) 650 mg Q4H PRN ORAL FEVER 07/04/18 10:30 08/03/18 10:29 Albuterol/ Ipratropium (Albuterol/ Ipratropium) 3 ml Q4HRT HHN 07/05/18 11:00 07/10/18 10:59 07/05/18 12:03 Diphenhydramine HCl (Benadryl) 25 mg Q6H PRN ORAL Itching 06/29/18 00:15 07/29/18 00:14 06/29/18 00:30 Fluconazole (Diflucan) 100 mg Q24H ORAL 07/04/18 18:00 07/11/18 17:59 07/04/18 18:16 Guaifenesin/ Dextromethorphan (Robitussin DM Syrup) 10 ml Q4H PRN ORAL For Cough 07/05/18 07:00 08/04/18 06:59 07/05/18 15:33 Heparin Sodium (Porcine) (Heparin 5000 units/ml) 5,000 units EVERY 12 HOURS SUBQ 07/04/18 12:00 08/03/18 11:59 07/05/18 09:30 Hydromorphone HCl 30 ml @ 0 mls/hr Q24H PRN IV For Pain 07/04/18 11:00 07/06/18 10:59 07/04/18 10:38 Linezolid 300 ml @ 300 mls/hr EVERY 12 HOURS IVPB 07/04/18 21:00 07/11/18 20:59 07/05/18 09:00 Miscellaneous Medication (ANIMAL SERVICES OFFICER Rate Change) 1 ea DAILY PRN MISC rate change 07/04/18 11:00 07/06/18 10:59 Miscellaneous Medication (ANIMAL SERVICES OFFICER shift volume) 1 ea Q12HR@0700,1900 MISC 07/04/18 19:00 07/06/18 18:59 07/05/18 07:12 Morphine Sulfate (Morphine Sulfate) 1 mg Q4H PRN IVP pain 07/01/18 16:45 07/08/18 16:44 07/03/18 20:47 Ondansetron HCl (Zofran) 4 mg Q6H PRN IVP Nausea & Vomiting 07/04/18 12:00 08/03/18 11:59 07/04/18 23:13 Pantoprazole (Protonix) 40 mg DAILY ORAL 07/01/18 09:00 07/31/18 08:59 07/05/18 09:27 Piperacillin Sod/ Tazobactam Sod 3.375 gm/Dextrose 110 ml @ 27.5 mls/hr EVERY 8 HOURS IVPB 07/04/18 20:00 07/09/18 19:59 07/05/18 12:59 Polyethylene Glycol (Miralax) 17 gm DAILY PRN ORAL Constipation 07/02/18 18:00 08/01/18 17:59 Sennosides (Senokot) 8.6 mg DAILYPRN PRN ORAL Constipation 06/28/18 13:45 07/28/18 13:44 Zolpidem Tartrate (Ambien) 5 mg DAILYPRN PRN ORAL Insomnia 06/29/18 20:00 07/06/18 19:59 Deandre Cunningham MD Jul 05, 2018 15:47
[2018-07-05] MEDS: Fluconazole 100mg tab ORAL SCH (17:29)
[2018-07-05] MEDS ORDERED: PCA HYDROmorphone 1mg/ml 30 ML IV PRN (19:00)
[2018-07-05] MEDS ORDERED: Rate Change PCA 1 Each MISC PRN (19:00)
[2018-07-05] MEDS ORDERED: Sennosides 8.6mg tab ORAL PRN (19:00)
[2018-07-05] MEDS ORDERED: Guaifenesin/DM 10ml syrup ORAL PRN (19:30)
[2018-07-05] MEDS ORDERED: Zolpidem 5mg tab ORAL PRN (20:00)
[2018-07-05] MEDS ORDERED: Morphine Sulfate 4mg/ml Inj (IV/IM USE ONLY) IVP PRN (20:45)
[2018-07-06] VITALS (24 sets, daily range): BP systolic 111–134; BP diastolic 56–70
[2018-07-06] MEDS: Albuterol/Ipratropium 3ml neb HHN SCH ×6 (03:00→22:58)
[2018-07-06 05:46] LABS: BASOPHILS % (AUTO) 0.5 % (0.0-2.0); EOSINOPHILS % (AUTO) 0.7 % (0.0-3.0); HEMATOCRIT 26.5 % (37.0-47.0); HEMOGLOBIN 9.1 G/DL (12.0-16.0); LYMPHOCYTES % (AUTO) 10.7 % (20.0-45.0); MEAN CORPUSCULAR VOLUME 88 FL (80-99); MONOCYTES % (AUTO) 7.4 % (1.0-10.0); NEUTROPHILS % (AUTO) 80.7 % (45.0-75.0); PLATELET COUNT 141 K/UL (150-450); RED BLOOD COUNT 3.01 M/UL (4.20-5.40); RED CELL DISTRIBUTION WIDTH 10.9 % (11.6-14.8); WHITE BLOOD COUNT 9.3 K/UL (4.8-10.8)
[2018-07-06] MEDS: Piperacillin/Tazobactam 3.375 GM in D5W 110 ML IVPB SCH (05:55)
[2018-07-06 06:30] LABS: ALANINE AMINOTRANSFERASE 29 U/L (12-78); ALBUMIN 2.4 G/DL (3.4-5.0); ALBUMIN/GLOBULIN RATIO 0.6 (1.0-2.7); ALKALINE PHOSPHATASE 44 U/L (46-116); ANION GAP 8 mmol/L (5-15); ASPARTATE AMINO TRANSFERASE 26 U/L (15-37); BILIRUBIN,TOTAL 0.3 MG/DL (0.2-1.0); BLOOD UREA NITROGEN 5 mg/dL (7-18); CARBON DIOXIDE 25 MMOL/L (21-32); CHLORIDE 103 MMOL/L (98-107); CREATININE 1.3 MG/DL (0.55-1.30); PHOSPHORUS 3.6 MG/DL (2.5-4.9); SODIUM 136 MMOL/L (136-145)
[2018-07-06] MEDS: PCA shift volume MISC SCH ×2 (07:00→19:23)
[2018-07-06] MEDS: Heparin 5000 units/ml inj SUBQ SCH ×2 (08:18→20:39)
--- NOTE | 2018-07-06 08:47 | Diagnostic Imaging Report ---
Indications: Shortness of breath Technique: IV administration 5.5 mCi 99m technetium macroaggregated albumin. Images obtained over the lungs in multiple projections. Previously, patient inhaled 40 mCi aerosolized 99M technetium DTPA. Images obtained over the lungs in multiple projections Comparison: Reference made to chest radiograph dated 07/05/2018 at 9:10 AM Findings: Perfusion images demonstrates slightly heterogeneous tracer distribution. Small matched defect is seen in the posterior right upper hemithorax. No other segmental or subsegmental perfusion defects are demonstrated. No areas of perfusion/aerosol mismatch demonstrated Impression: Findings are deemed low probability for pulmonary embolus This agrees with the preliminary interpretation provided overnight by [facility] teleradiology service.
[2018-07-06] MEDS ORDERED: Miralax 17gm pkt ORAL PRN (09:00)
--- NOTE | 2018-07-06 10:25 | Diagnostic Imaging Report ---
Indication: Shortness of breath Technique: One view of the chest Comparison: 07/05/2018 Findings: Bilateral diffuse interstitial and airspace infiltrates versus edema again demonstrated, appears slightly progressive since prior exam. Small bilateral pleural effusions persist, unchanged. The heart size is normal. Impression: Worsening bilateral pulmonary parenchymal disease, over one Probably unchanged bilateral pleural effusions
--- NOTE | 2018-07-06 10:33 | General Progress Note ---
Progress Note Progress Note Pt seen and examined. Improved today as compared to before. VQ scan with low probablity for PE. Was diuresed yesterday and also today given CXR. ( I had incorrectly documented an unremarkable CXR from yesterday) Will try to transfer to the floor later today and if she continues to improve will plan on Dc by Wednesday. Davina Banegas M.D. Davina Banegas MD Jul 06, 2018 10:33
--- NOTE | 2018-07-06 11:44 | General Progress Note ---
Assessment/Plan Problem List: (1) Acute respiratory failure with hypoxia ICD Codes: J96.01 - Acute respiratory failure with hypoxia SNOMED: 92565735, 674735539 (2) Pain ICD Codes: R52 - Pain, unspecified SNOMED: 67532506 (3) Cellulitis ICD Codes: L03.90 - Cellulitis, unspecified SNOMED: 695218006 (4) Abscess ICD Codes: L02.91 - Cutaneous abscess, unspecified SNOMED: 931986571 (5) Hidradenitis suppurativa ICD Codes: L73.2 - Hidradenitis suppurativa SNOMED: 54276179 (6) LIANA (acute kidney injury) ICD Codes: N17.9 - Acute kidney failure, unspecified SNOMED: 71245322 (7) Constipation ICD Codes: K59.00 - Constipation, unspecified SNOMED: 83722442 (8) UTI (urinary tract infection) ICD Codes: N39.0 - Urinary tract infection, site not specified SNOMED: 28473446 Qualifiers: Qualified Codes: N30.00 - Acute cystitis without hematuria Status: progressing Assessment/Plan #Acute Hypoxic Respiratory Failure currently on abx started on 3L NCL as patient desating to 79% off oxygen yesterday breathing tx ordered abg done yest, p02 67 from 37 yesterday after o2 cxr reviewed showing pulm edema fluids stopped at the time lasix 20 x 1 given yesterday, patient still desaturating on room air and having crackles on auscultation b/l lower lobes, will give another 20mg lasix now patient currently in ICU under close monitoring Pulm consulted #Abscess #Cellulitis #Hidradenitis Suppurative #Pain s/p excision 06/29/18, s/p Closure cont abx per ID recs continue excellent post op care prophylactic anticoagulation per surgery, Incentive Spirometry, abx iv, pain control , will dc with PO abx #allergic reaction to vancomycin vanco stopped, abx per ID #ATN due to abx vs vanco allergic reaction Cr improving, Cr 1.3 today monitor closely cautious with diuresis avoid nephrotoxins #Constipation feeling better having BMs denies nausea/vomiting #UTI diflucan given for yeast infection ppx: scd diet: regular [facility] will required an estimated 3-5 midnights stay due to antibiotic management along with procedures required by plastic surgery. I spent over 63 minutes on this patient's case, and over 42 minutes was dedicated to counseling and/or care coordination. I have spent over 40 minutes of critical care time in regards to patient care patient requiring ICU bed for close hemodynamic/respiratory/ vitals monitoring currently on facemask, will need bipap if patient will agree to it, if resp distress worsens again I have reviewed all labs, imaging, and medications and have discussed findings with patient Subjective Date patient seen: Jul 06, 2018 Time patient seen: 11:34 Allergies: Coded Allergies: VANCOMYCIN (Verified Allergy, Mild, Itching, 06/29/18) Subjective f/u inguinal abscesses with surrounding cellulitis concerns for hydradenitis suppurativa, LIANA and new acute hypoxic respiratory failure patient on facemask oxygen refused bipap last night patient starting to feel better abg done yest, p02 67 from 37 yesterday after o2 cxr reviewed showing pulm edema fluids stopped at the time lasix 20 x 1 given yesterday, patient still desaturating on room air and having crackles on auscultation b/l lower lobes, will give another 20mg lasix patient currently in ICU under close monitoring ROS: 14 point ROS reviewed and negative except for the above Objective Last 24 Hour Vital Signs Date Time Temp Pulse Resp B/P (MAP) Pulse Ox O2 Delivery O2 Flow Rate FiO2 07/06/18 11:04 99 25 93 Non-Rebreather 15.0 100 07/06/18 11:00 101 27 118/64 (82) 94 07/06/18 10:54 95 25 95 Non-Rebreather 15.0 100 07/06/18 10:00 105 23 122/62 (82) 92 07/06/18 09:00 108 23 128/60 (82) 92 07/06/18 08:00 Non-Rebreather 15.0 07/06/18 08:00 20 07/06/18 08:00 99.0 105 23 118/58 (78) 92 07/06/18 07:50 90 25 90 Non-Rebreather 15.0 100 07/06/18 07:30 86 26 92 Non-Rebreather 15.0 100 07/06/18 07:30 Non-Rebreather 15.0 100 07/06/18 07:30 94 Non-Rebreather 15.0 100 07/06/18 07:00 88 23 116/60 (78) 92 07/06/18 06:00 86 23 119/61 (80) 94 07/06/18 05:00 92 23 120/68 (85) 92 07/06/18 04:00 18 07/06/18 04:00 Non-Rebreather 15.0 07/06/18 04:00 99.0 81 23 118/58 (78) 92 07/06/18 04:00 77 07/06/18 03:00 77 21 113/62 (79) 92 07/06/18 02:59 Non-Rebreather 15.0 100 07/06/18 02:58 Non-Rebreather 15.0 100 07/06/18 02:00 79 21 117/56 (76) 92 07/06/18 01:00 76 21 115/59 (77) 92 07/06/18 00:30 Non-Rebreather 15.0 100 07/06/18 00:00 Non-Rebreather 15.0 07/06/18 00:00 80 07/06/18 00:00 98.5 81 21 119/65 (83) 93 07/06/18 00:00 18 07/05/18 23:00 Non-Rebreather 15.0 100 07/05/18 23:00 79 23 116/59 (78) 96 18 22:00 78 21 116/65 (82) 99 18 21:54 80 21 97 Non-Rebreather 15.0 100 07/05/18 21:44 Nasal Cannula 3.0 32 07/05/18 21:43 94 Non-Rebreather 15.0 100 07/05/18 21:42 82 22 Non-Rebreather 15.0 100 07/05/18 21:00 77 20 116/65 (82) 94 18 20:30 80 20 120/66 (84) 93 07/05/18 20:00 87 07/05/18 20:00 18 07/05/18 20:00 Non-Rebreather 15.0 07/05/18 19:00 98.7 80 20 125/70 (88) 97 18 18:30 84 21 120/70 (87) 95 07/05/18 18:00 98.4 79 22 115/67 (83) 96 07/05/18 16:00 99.0 95 17 115/63 (80) 90 07/05/18 16:00 17 07/05/18 15:30 99.0 86 18 109/62 (78) 93 07/05/18 14:30 99.6 95 18 110/60 (77) 88 07/05/18 12:47 99.6 07/05/18 12:04 82 22 Nasal Cannula 3.0 32 07/05/18 12:04 84 22 Bi-pap 30 07/05/18 12:00 100.2 95 17 115/63 (80) 70 07/05/18 12:00 18 Intake and Output 07/05/18 07/06/18 19:00 07:00 Intake Total 510.0 ml Output Total 955 ml 765 ml Balance -955 ml -255.0 ml Intake Oral 100 ml IV Total 410.0 ml Output Urine Total 925 ml 745 ml Drainage Total 30 ml 20 ml Laboratory Tests 07/05/18 13:35: Arterial Blood pH 7.443, Arterial Blood Partial Pressure CO2 32.3L, Arterial Blood Partial Pressure O2 36.9*L, Arterial Blood HCO3 21.6L, Arterial Blood Oxygen Saturation 73.0*L, Arterial Blood Base Excess -1.9, Jordon Test Positive 07/05/18 19:23: Arterial Blood pH 7.470H, Arterial Blood Partial Pressure CO2 32.5L, Arterial Blood Partial Pressure O2 67.6L, Arterial Blood HCO3 23.1, Arterial Blood Oxygen Saturation 93.4L, Arterial Blood Base Excess -0.1, Jordon Test Positive 07/06/18 04:40: White Blood Count 9.3, Red Blood Count 3.01L, Hemoglobin 9.1L, Hematocrit 26.5L , Mean Corpuscular Volume 88, Mean Corpuscular Hemoglobin 30.1, Mean Corpuscular Hemoglobin Concent 34.2, Red Cell Distribution Width 10.9L, Platelet Count 141L, Mean Platelet Volume 6.5, Neutrophils (%) (Auto) 80.7H, Lymphocytes (%) (Auto) 10.7L, Monocytes (%) (Auto) 7.4, Eosinophils (%) (Auto) 0.7, Basophils (%) (Auto) 0.5, Sodium Level 136, Potassium Level 4.0, Chloride Level 103, Carbon Dioxide Level 25, Anion Gap 8, Blood Urea Nitrogen 5L, Creatinine 1.3, Estimat Glomerular Filtration Rate 47.5, Glucose Level 93, Uric Acid 2.1L, Calcium Level 8.0L, Phosphorus Level 3.6, Magnesium Level 1.4L, Total Bilirubin 0.3, Aspartate Amino Transf (AST/SGOT) 26, Alanine Aminotransferase (ALT/SGPT) 29, Alkaline Phosphatase 44L, Pro-B-Type Natriuretic Peptide 1317H, Total Protein 6.2L, Albumin 2.4L, Globulin 3.8, Albumin/Globulin Ratio 0.6L Height (Feet): 5 Height (Inches): 8.00 Weight (Pounds): 148 General Appearance: WD/WN, no apparent distress, alert EENT: PERRL/EOMI, normal ENT inspection, TMs normal, pharynx normal Neck: non-tender, normal alignment, supple, normal inspection Cardiovascular: normal peripheral pulses, normal rate, regular rhythm Respiratory/Chest: chest wall non-tender, no respiratory distress, no accessory muscle use, other - b/l appreciated on b/l lower lobes Abdomen: normal bowel sounds, non tender, soft, no organomegaly, no mass Extremities: normal range of motion, non-tender Neurologic: primary health organisation manager II-XII grossly normal, no motor/sensory deficits, alert, oriented x 3, responsive, normal mood/affect Skin: normal pigmentation, warm/dry Objective General Appearance: WD/WN, no apparent distress, alert EENT: PERRL/EOMI, normal ENT inspection, TMs normal, pharynx normal Neck: non-tender, normal alignment, supple, normal inspection Cardiovascular: normal peripheral pulses, normal rate, regular rhythm Respiratory/Chest: chest wall non-tender,b/l lower lobe crackles and wheezing appreciated, mild respiratory distress, no accessory muscle use Abdomen: normal bowel sounds, non tender, soft, no organomegaly, no mass Extremities: normal range of motion, non-tender, normal inspection Neurologic: primary health organisation manager II-XII grossly normal, no motor/sensory deficits, alert, oriented x 3, responsive, normal mood/affect Skin: normal pigmentation, warm/dry Agustin Heredia MD Jul 06, 2018 11:44
--- NOTE | 2018-07-06 15:36 | Infectious Diseases Prog Note ---
Assessment/Plan Assessment/Plan ASSESSMENT AND PLAN: 1. bilateral groin/thigh abscesses/wound infection/hidradenitis suppurativa, recent vaginal yeast infection, urine culture with yeast sob, fevers, pulmoary edema vs other, ? HCAP, ? sepsis, tachycardia - change abx to meropenem and zyvox - panculture, monitor labs, monitor chest x-ray - finish diflucan - allergies - vancomycin - s/p excision and debridement - s/p wound closure - wound care per surgery - sob/pulmonary w/u - V/Q low probability 2. ARF - renal f/u, monitor creatinine, avoid nephrotoxic abx - cr improved 3. Leukocytosis - resolved. 4. Question UTI with positive urinalysis, urine culture mixed organisms - on zosyn 5. The patient currently has anemia. 6. Allergies, vancomycin. 7. Social history is negative. 8. Family history is noncontributory. 9. MAR was noted. 10. Case discussed with RN. 11. Continue treatment per primary consultants. 12. Notes and records were noted. 13. Orders were entered. Subjective Constitutional: Reports: fever, chills, fatigue, other - transferred to icu because of sob HEENT: Reports: congestion, other - + bm Respiratory: Reports: shortness of breath Cardiovascular: Denies: chest pain Gastrointestinal/Abdominal: Denies: nausea, vomiting, diarrhea Genitourinary: Reports: other - + cohen Psychiatric: Denies: depression Skin: Denies: rash Hematologic: Denies: bleeding Musculoskeletal: Denies: pain Allergies: Coded Allergies: VANCOMYCIN (Verified Allergy, Mild, Itching, 06/29/18) Objective Vital Signs Last 24 Hour Vital Signs Date Time Temp Pulse Resp B/P (MAP) Pulse Ox O2 Delivery O2 Flow Rate FiO2 07/06/18 15:03 97 27 83 Non-Rebreather 15.0 100 07/06/18 15:00 108 25 134/70 (91) 94 07/06/18 14:00 105 25 116/62 (80) 94 07/06/18 13:00 101 25 126/68 (87) 94 07/06/18 12:00 98.9 103 22 120/64 (82) 95 07/06/18 12:00 20 07/06/18 12:00 Non-Rebreather 15.0 07/06/18 11:04 99 25 93 Non-Rebreather 15.0 100 07/06/18 11:00 101 27 118/64 (82) 94 07/06/18 10:54 95 25 95 Non-Rebreather 15.0 100 07/06/18 10:00 105 23 122/62 (82) 92 07/06/18 09:00 108 23 128/60 (82) 92 07/06/18 08:00 Non-Rebreather 15.0 07/06/18 08:00 20 07/06/18 08:00 99.0 105 23 118/58 (78) 92 07/06/18 07:50 90 25 90 Non-Rebreather 15.0 100 07/06/18 07:30 86 26 92 Non-Rebreather 15.0 100 07/06/18 07:30 Non-Rebreather 15.0 100 07/06/18 07:30 94 Non-Rebreather 15.0 100 07/06/18 07:00 88 23 116/60 (78) 92 07/06/18 06:00 86 23 119/61 (80) 94 07/06/18 05:00 92 23 120/68 (85) 92 07/06/18 04:00 18 07/06/18 04:00 Non-Rebreather 15.0 07/06/18 04:00 99.0 81 23 118/58 (78) 92 07/06/18 04:00 77 07/06/18 03:00 77 21 113/62 (79) 92 07/06/18 02:59 Non-Rebreather 15.0 100 07/06/18 02:58 Non-Rebreather 15.0 100 07/06/18 02:00 79 21 117/56 (76) 92 07/06/18 01:00 76 21 115/59 (77) 92 07/06/18 00:30 Non-Rebreather 15.0 100 07/06/18 00:00 Non-Rebreather 15.0 07/06/18 00:00 80 07/06/18 00:00 98.5 81 21 119/65 (83) 93 07/06/18 00:00 18 07/05/18 23:00 Non-Rebreather 15.0 100 07/05/18 23:00 79 23 116/59 (78) 96 07/05/18 22:00 78 21 116/65 (82) 99 07/05/18 21:54 80 21 97 Non-Rebreather 15.0 100 07/05/18 21:44 Nasal Cannula 3.0 32 07/05/18 21:43 94 Non-Rebreather 15.0 100 07/05/18 21:42 82 22 Non-Rebreather 15.0 100 07/05/18 21:00 77 20 116/65 (82) 94 07/05/18 20:30 80 20 120/66 (84) 93 07/05/18 20:00 87 07/05/18 20:00 18 07/05/18 20:00 Non-Rebreather 15.0 07/05/18 19:00 98.7 80 20 125/70 (88) 97 07/05/18 18:30 84 21 120/70 (87) 95 07/05/18 18:00 98.4 79 22 115/67 (83) 96 07/05/18 16:00 99.0 95 17 115/63 (80) 90 07/05/18 16:00 17 07/05/18 15:30 99.0 86 18 109/62 (78) 93 Height (Feet): 5 Height (Inches): 8.00 Weight (Pounds): 148 General Appearance: other - sob, on breathing mask HEENT: normocephalic, atraumatic, anicteric, mucous membranes moist Respiratory/Chest: crackles/rales, rhonchi - bilaterally Cardiovascular: normal rate, regular rhythm, no gallop/murmur, no JVD Abdomen: normal bowel sounds, soft, non tender, no organomegaly, non distended Genitourinary: other - + cohen - urine clear Extremities: no cyanosis Skin: no rash, ulcers - wounds covered Neurologic/Psychiatric: dehydrator II-XII grossly normal, abnormal gait, oriented x 3 , responsive Lymphatic: no neck adenopathy Musculoskeletal: no effusion Objective Labs Test 06/30/18 07:00 06/30/18 17:05 07/01/18 04:10 07/01/18 05:10 White Blood Count 8.7 K/UL (4.8-10.8) 9.0 K/UL (4.8-10.8) Red Blood Count 3.92 M/UL (4.20-5.40) 3.67 M/UL (4.20-5.40) Hemoglobin 11.3 G/DL (12.0-16.0) 10.6 G/DL (12.0-16.0) Hematocrit 33.8 % (37.0-47.0) 31.1 % (37.0-47.0) Mean Corpuscular Volume 86 FL (80-99) 85 FL (80-99) Mean Corpuscular Hemoglobin 28.9 PG (27.0-31.0) 28.8 PG (27.0-31.0) Mean Corpuscular Hemoglobin Concent 33.5 G/DL (32.0-36.0) 34.0 G/DL (32.0-36.0) Red Cell Distribution Width 11.2 % (11.6-14.8) 10.8 % (11.6-14.8) Platelet Count 162 K/UL (150-450) 136 K/UL (150-450) Mean Platelet Volume 7.2 FL (6.5-10.1) 7.1 FL (6.5-10.1) Neutrophils (%) (Auto) 73.8 % (45.0-75.0) 77.6 % (45.0-75.0) Lymphocytes (%) (Auto) 16.8 % (20.0-45.0) 12.7 % (20.0-45.0) Monocytes (%) (Auto) 8.5 % (1.0-10.0) 8.9 % (1.0-10.0) Eosinophils (%) (Auto) 0.6 % (0.0-3.0) 0.5 % (0.0-3.0) Basophils (%) (Auto) 0.5 % (0.0-2.0) 0.4 % (0.0-2.0) Sodium Level 139 MMOL/L (136-145) 138 MMOL/L (136-145) Potassium Level 3.7 MMOL/L (3.5-5.1) 3.0 MMOL/L (3.5-5.1) Chloride Level 104 MMOL/L (98-107) 104 MMOL/L (98-107) Carbon Dioxide Level 27 MMOL/L (21-32) 26 MMOL/L (21-32) Anion Gap 8 mmol/L (5-15) 8 mmol/L (5-15) Blood Urea Nitrogen 12 mg/dL (7-18) 9 mg/dL (7-18) Creatinine 2.5 MG/DL (0.55-1.30) 2.3 MG/DL (0.55-1.30) Estimat Glomerular Filtration Rate 22.3 mL/min (>60) 24.6 mL/min (>60) Glucose Level 100 MG/DL (74-106) 116 MG/DL (74-106) Calcium Level 8.2 MG/DL (8.5-10.1) 8.0 MG/DL (8.5-10.1) C-Reactive Protein, Quantitative 0.7 mg/dL (0.00-0.90) Urine Random Sodium < 20 mmol/L (20-110) Urine Eosinophils None seen (NONE SEEN) Uric Acid 4.6 MG/DL (2.6-7.2) Phosphorus Level 3.6 MG/DL (2.5-4.9) Magnesium Level 1.6 MG/DL (1.8-2.4) Iron Level 50 ug/dL (50-175) Total Iron Binding Capacity 215 ug/dL (250-450) Percent Iron Saturation 23 % (15-50) Unsaturated Iron Binding 165 ug/dL (112-346) Total Bilirubin 0.3 MG/DL (0.2-1.0) Gamma Glutamyl Transpeptidase 18 U/L (5-85) Aspartate Amino Transf (AST/SGOT) 16 U/L (15-37) Alanine Aminotransferase (ALT/SGPT) 12 U/L (12-78) Alkaline Phosphatase 38 U/L (46-116) Total Protein 6.1 G/DL (6.4-8.2) Albumin 2.8 G/DL (3.4-5.0) Globulin 3.3 g/dL Albumin/Globulin Ratio 0.8 (1.0-2.7) Triglycerides Level 78 MG/DL (30-150) Cholesterol Level 131 MG/DL (< 200) LDL Cholesterol 78 mg/dL (<100) HDL Cholesterol 51 MG/DL (40-60) Cholesterol/HDL Ratio 2.6 (3.3-4.4) Vitamin B12 Level 1440 PG/ML (193-986) Folate 19.7 NG/ML (8.6-58.9) Test 07/01/18 18:20 07/02/18 04:00 07/02/18 05:25 07/02/18 14:20 Sodium Level 137 MMOL/L (136-145) 138 MMOL/L (136-145) Potassium Level 3.9 MMOL/L (3.5-5.1) 3.7 MMOL/L (3.5-5.1) Chloride Level 104 MMOL/L (98-107) 106 MMOL/L (98-107) Carbon Dioxide Level 26 MMOL/L (21-32) 27 MMOL/L (21-32) Anion Gap 7 mmol/L (5-15) 5 mmol/L (5-15) Blood Urea Nitrogen 8 mg/dL (7-18) 8 mg/dL (7-18) Creatinine 2.0 MG/DL (0.55-1.30) 2.0 MG/DL (0.55-1.30) Estimat Glomerular Filtration Rate 28.9 mL/min (>60) 28.9 mL/min (>60) Glucose Level 121 MG/DL (74-106) 129 MG/DL (74-106) Calcium Level 8.2 MG/DL (8.5-10.1) 8.0 MG/DL (8.5-10.1) Urine Eosinophils None seen (NONE SEEN) White Blood Count 8.1 K/UL (4.8-10.8) Red Blood Count 3.66 M/UL (4.20-5.40) Hemoglobin 10.4 G/DL (12.0-16.0) Hematocrit 31.1 % (37.0-47.0) Mean Corpuscular Volume 85 FL (80-99) Mean Corpuscular Hemoglobin 28.5 PG (27.0-31.0) Mean Corpuscular Hemoglobin Concent 33.5 G/DL (32.0-36.0) Red Cell Distribution Width 10.8 % (11.6-14.8) Platelet Count 145 K/UL (150-450) Mean Platelet Volume 6.7 FL (6.5-10.1) Neutrophils (%) (Auto) 78.1 % (45.0-75.0) Lymphocytes (%) (Auto) 13.2 % (20.0-45.0) Monocytes (%) (Auto) 7.3 % (1.0-10.0) Eosinophils (%) (Auto) 0.8 % (0.0-3.0) Basophils (%) (Auto) 0.5 % (0.0-2.0) Phosphorus Level 2.9 MG/DL (2.5-4.9) Magnesium Level 2.5 MG/DL (1.8-2.4) Total Bilirubin 0.5 MG/DL (0.2-1.0) Aspartate Amino Transf (AST/SGOT) 13 U/L (15-37) Alanine Aminotransferase (ALT/SGPT) 18 U/L (12-78) Alkaline Phosphatase 36 U/L (46-116) C-Reactive Protein, Quantitative 0.5 mg/dL (0.00-0.90) Total Protein 6.3 G/DL (6.4-8.2) Albumin 3.1 G/DL (3.4-5.0) Globulin 3.2 g/dL Albumin/Globulin Ratio 1.0 (1.0-2.7) Urine Color Pale yellow Urine Appearance Slightly cloudy Urine pH 5 (4.5-8.0) Urine Specific [place] 1.010 (1.005-1.035) Urine Protein 2+ (NEGATIVE) Urine Glucose (UA) Negative (NEGATIVE) Urine Ketones Negative (NEGATIVE) Urine Blood 3+ (NEGATIVE) Urine Nitrite Negative (NEGATIVE) Urine Bilirubin Negative (NEGATIVE) Urine Urobilinogen Normal MG/DL (0.0-1.0) Urine Leukocyte Esterase 3+ (NEGATIVE) Urine RBC 5-10 /HPF (0 - 2) Urine WBC 15-20 /HPF (0 - 2) Urine Squamous Epithelial Cells Occasional /LPF Urine Bacteria Occasional /HPF (NONE) Urine Yeast Many /HPF (NONE) Urine Random Sodium < 20 mmol/L (20-110) Chest x-ray - nad, report noted Microbiology Date/Time Source Procedure Growth Status 07/02/18 14:20 Urine,Clean Catch Urine Culture - Preliminary Yeast Species Resulted Laboratory Tests Test 07/05/18 19:23 07/06/18 04:40 Arterial Blood pH 7.470 (7.350-7.450) Arterial Blood Partial Pressure CO2 32.5 mmHg (35.0-45.0) L Arterial Blood Partial Pressure O2 67.6 mmHg (75.0-100.0) L Arterial Blood HCO3 23.1 mmol/L (22.0-26.0) Arterial Blood Oxygen Saturation 93.4 % (95-100) L Arterial Blood Base Excess -0.1 (-2-2) Jordon Test Positive White Blood Count 9.3 K/UL (4.8-10.8) Red Blood Count 3.01 M/UL (4.20-5.40) L Hemoglobin 9.1 G/DL (12.0-16.0) L Hematocrit 26.5 % (37.0-47.0) L Mean Corpuscular Volume 88 FL (80-99) Mean Corpuscular Hemoglobin 30.1 PG (27.0-31.0) Mean Corpuscular Hemoglobin Concent 34.2 G/DL (32.0-36.0) Red Cell Distribution Width 10.9 % (11.6-14.8) L Platelet Count 141 K/UL (150-450) L Mean Platelet Volume 6.5 FL (6.5-10.1) Neutrophils (%) (Auto) 80.7 % (45.0-75.0) H Lymphocytes (%) (Auto) 10.7 % (20.0-45.0) L Monocytes (%) (Auto) 7.4 % (1.0-10.0) Eosinophils (%) (Auto) 0.7 % (0.0-3.0) Basophils (%) (Auto) 0.5 % (0.0-2.0) Sodium Level 136 MMOL/L (136-145) Potassium Level 4.0 MMOL/L (3.5-5.1) Chloride Level 103 MMOL/L (98-107) Carbon Dioxide Level 25 MMOL/L (21-32) Anion Gap 8 mmol/L (5-15) Blood Urea Nitrogen 5 mg/dL (7-18) L Creatinine 1.3 MG/DL (0.55-1.30) Estimat Glomerular Filtration Rate 47.5 mL/min (>60) Glucose Level 93 MG/DL (74-106) Uric Acid 2.1 MG/DL (2.6-7.2) L Calcium Level 8.0 MG/DL (8.5-10.1) L Phosphorus Level 3.6 MG/DL (2.5-4.9) Magnesium Level 1.4 MG/DL (1.8-2.4) L Total Bilirubin 0.3 MG/DL (0.2-1.0) Aspartate Amino Transf (AST/SGOT) 26 U/L (15-37) Alanine Aminotransferase (ALT/SGPT) 29 U/L (12-78) Alkaline Phosphatase 44 U/L (46-116) L Pro-B-Type Natriuretic Peptide 1317 pg/mL (0-125) H Total Protein 6.2 G/DL (6.4-8.2) L Albumin 2.4 G/DL (3.4-5.0) L Globulin 3.8 g/dL Albumin/Globulin Ratio 0.6 (1.0-2.7) L Current Medications Medications (Trade) Dose Ordered Sig/Megan Route PRN Reason Start Time Stop Time Status Last Admin Dose Admin Acetaminophen (Tylenol) 650 mg Q4H PRN ORAL FEVER (temp>100.5F) 07/05/18 19:15 07/29/18 11:14 Albuterol/ Ipratropium (Albuterol/ Ipratropium) 3 ml Q4HRT HHN 07/05/18 19:00 07/10/18 10:59 07/06/18 15:03 Diphenhydramine HCl (Benadryl) 25 mg Q6H PRN ORAL Itching 07/05/18 19:00 08/04/18 18:59 Fluconazole (Diflucan) 100 mg Q24H ORAL 07/06/18 18:00 07/11/18 17:59 Guaifenesin/ Dextromethorphan (Robitussin DM Syrup) 10 ml Q4H PRN ORAL For Cough 07/05/18 19:30 08/04/18 19:29 Heparin Sodium (Porcine) (Heparin 5000 units/ml) 5,000 units EVERY 12 HOURS SUBQ 07/05/18 21:00 08/03/18 11:59 07/05/18 21:12 Hydromorphone HCl 30 ml @ 0 mls/hr Q24H PRN IV For Pain 07/05/18 19:00 07/07/18 18:59 Hydromorphone HCl (Dilaudid) 2 mg Q3H PRN SUBQ Severe Breakthru Pain (7-10) 07/05/18 19:00 07/07/18 18:59 Hydromorphone HCl (Dilaudid) 2 mg Q4H PRN IVP Moderate Breakthru Pain (4-6) 07/05/18 19:00 07/07/18 18:59 Linezolid 300 ml @ 300 mls/hr EVERY 12 HOURS IVPB 07/05/18 21:00 07/11/18 20:59 07/06/18 08:28 Magnesium Sulfate 100 ml @ 100 mls/hr Q1H IVPB 07/06/18 11:30 07/06/18 15:29 07/06/18 13:30 Miscellaneous Medication (TEST MANAGER Rate Change) 1 ea DAILY PRN MISC rate change 07/05/18 19:00 07/07/18 18:59 Miscellaneous Medication (TEST MANAGER shift volume) 1 ea Q12HR@0700,1900 MISC 07/05/18 19:00 07/07/18 18:59 07/06/18 07:00 Naloxone HCl (Narcan) 0.1 mg PRN IV see label comments 07/05/18 19:00 07/07/18 18:59 Ondansetron HCl (Zofran) 4 mg Q6H PRN IVP Nausea & Vomiting 07/05/18 19:00 08/04/18 18:59 Pantoprazole (Protonix) 40 mg DAILY ORAL 07/06/18 09:00 07/31/18 08:59 07/06/18 08:28 Polyethylene Glycol (Miralax) 17 gm DAILY PRN ORAL Constipation 07/06/18 09:00 08/01/18 17:59 Sennosides (Senokot) 8.6 mg DAILYPRN PRN ORAL Constipation 07/05/18 19:00 08/04/18 18:59 Zolpidem Tartrate (Ambien) 5 mg HSPRN PRN ORAL Insomnia 07/05/18 20:00 07/12/18 19:59 Joseph Brooks MD Jul 06, 2018 15:36
--- NOTE | 2018-07-06 16:05 | Nephrology Progress Note ---
Assessment/Plan Problem List: (1) Acute renal failure Assessment: Cr wnl (2) UTI (urinary tract infection) (3) Hidradenitis suppurativa (4) Cellulitis Assessment acute renal failure Cr wnl Hypotension Pain Cellulitis Abcess / Hidradenitis suppurativea UTI Plan K and Mag , phos supplement as needed stop IV Lasix one dose was given Urine studies Avoid Nephrotoxics Monitor renal parameters Antibiotics per ID CXR bilat lower process Bilateral basilar infiltrates versus edema, and bilateral pleural effusions, developing since 06/28/2018 Subjective ROS Limited/Unobtainable: No Objective Objective Last 24 Hour Vital Signs Date Time Temp Pulse Resp B/P (MAP) Pulse Ox O2 Delivery O2 Flow Rate FiO2 07/06/18 15:22 95 25 86 Non-Rebreather 15.0 100 07/06/18 15:03 97 27 83 Non-Rebreather 15.0 100 07/06/18 15:00 108 25 134/70 (91) 94 07/06/18 14:00 105 25 116/62 (80) 94 07/06/18 13:00 101 25 126/68 (87) 94 07/06/18 12:00 98.9 103 22 120/64 (82) 95 07/06/18 12:00 20 07/06/18 12:00 Non-Rebreather 15.0 07/06/18 11:04 99 25 93 Non-Rebreather 15.0 100 07/06/18 11:00 101 27 118/64 (82) 94 07/06/18 10:54 95 25 95 Non-Rebreather 15.0 100 07/06/18 10:00 105 23 122/62 (82) 92 07/06/18 09:00 108 23 128/60 (82) 92 07/06/18 08:00 Non-Rebreather 15.0 07/06/18 08:00 20 07/06/18 08:00 99.0 105 23 118/58 (78) 92 07/06/18 07:50 90 25 90 Non-Rebreather 15.0 100 07/06/18 07:30 86 26 92 Non-Rebreather 15.0 100 07/06/18 07:30 Non-Rebreather 15.0 100 07/06/18 07:30 94 Non-Rebreather 15.0 100 07/06/18 07:00 88 23 116/60 (78) 92 07/06/18 06:00 86 23 119/61 (80) 94 07/06/18 05:00 92 23 120/68 (85) 92 07/06/18 04:00 18 07/06/18 04:00 Non-Rebreather 15.0 07/06/18 04:00 99.0 81 23 118/58 (78) 92 07/06/18 04:00 77 07/06/18 03:00 77 21 113/62 (79) 92 07/06/18 02:59 Non-Rebreather 15.0 100 07/06/18 02:58 Non-Rebreather 15.0 100 07/06/18 02:00 79 21 117/56 (76) 92 07/06/18 01:00 76 21 115/59 (77) 92 07/06/18 00:30 Non-Rebreather 15.0 100 07/06/18 00:00 Non-Rebreather 15.0 07/06/18 00:00 80 07/06/18 00:00 98.5 81 21 119/65 (83) 93 07/06/18 00:00 18 07/05/18 23:00 Non-Rebreather 15.0 100 07/05/18 23:00 79 23 116/59 (78) 96 07/05/18 22:00 78 21 116/65 (82) 99 07/05/18 21:54 80 21 97 Non-Rebreather 15.0 100 07/05/18 21:44 Nasal Cannula 3.0 32 07/05/18 21:43 94 Non-Rebreather 15.0 100 07/05/18 21:42 82 22 Non-Rebreather 15.0 100 07/05/18 21:00 77 20 116/65 (82) 94 18 20:30 80 20 120/66 (84) 93 18 20:00 87 07/05/18 20:00 18 07/05/18 20:00 Non-Rebreather 15.0 07/05/18 19:00 98.7 80 20 125/70 (88) 97 18 18:30 84 21 120/70 (87) 95 07/05/18 18:00 98.4 79 22 115/67 (83) 96 Intake and Output 07/05/18 07/06/18 19:00 07:00 Intake Total 510.0 ml Output Total 955 ml 765 ml Balance -955 ml -255.0 ml Intake Oral 100 ml IV Total 410.0 ml Output Urine Total 925 ml 745 ml Drainage Total 30 ml 20 ml Laboratory Tests 07/05/18 19:23: Arterial Blood pH 7.470H, Arterial Blood Partial Pressure CO2 32.5L, Arterial Blood Partial Pressure O2 67.6L, Arterial Blood HCO3 23.1, Arterial Blood Oxygen Saturation 93.4L, Arterial Blood Base Excess -0.1, Jordon Test Positive 07/06/18 04:40: White Blood Count 9.3, Red Blood Count 3.01L, Hemoglobin 9.1L, Hematocrit 26.5L , Mean Corpuscular Volume 88, Mean Corpuscular Hemoglobin 30.1, Mean Corpuscular Hemoglobin Concent 34.2, Red Cell Distribution Width 10.9L, Platelet Count 141L, Mean Platelet Volume 6.5, Neutrophils (%) (Auto) 80.7H, Lymphocytes (%) (Auto) 10.7L, Monocytes (%) (Auto) 7.4, Eosinophils (%) (Auto) 0.7, Basophils (%) (Auto) 0.5, Sodium Level 136, Potassium Level 4.0, Chloride Level 103, Carbon Dioxide Level 25, Anion Gap 8, Blood Urea Nitrogen 5L, Creatinine 1.3, Estimat Glomerular Filtration Rate 47.5, Glucose Level 93, Uric Acid 2.1L, Calcium Level 8.0L, Phosphorus Level 3.6, Magnesium Level 1.4L, Total Bilirubin 0.3, Aspartate Amino Transf (AST/SGOT) 26, Alanine Aminotransferase (ALT/SGPT) 29, Alkaline Phosphatase 44L, Pro-B-Type Natriuretic Peptide 1317H, Total Protein 6.2L, Albumin 2.4L, Globulin 3.8, Albumin/Globulin Ratio 0.6L Height (Feet): 5 Height (Inches): 8.00 Weight (Pounds): 148 General Appearance: no apparent distress Cardiovascular: tachycardia Respiratory/Chest: decreased breath sounds Abdomen: soft Objective no change Ilan Nelson MD Jul 06, 2018 16:05
[2018-07-06 16:28] LABS: ANION GAP 11 mmol/L (5-15); BLOOD UREA NITROGEN 5 mg/dL (7-18); CARBON DIOXIDE 25 MMOL/L (21-32); CHLORIDE 100 MMOL/L (98-107); CREATININE 1.4 MG/DL (0.55-1.30); POTASSIUM 3.8 MMOL/L (3.5-5.1); SODIUM 136 MMOL/L (136-145)
[2018-07-06 17:21] LABS: HEMATOCRIT 28.7 % (37.0-47.0); HEMOGLOBIN 9.8 G/DL (12.0-16.0); MEAN CORPUSCULAR VOLUME 87 FL (80-99); PLATELET COUNT 188 K/UL (150-450); RED BLOOD COUNT 3.29 M/UL (4.20-5.40); RED CELL DISTRIBUTION WIDTH 10.9 % (11.6-14.8); WHITE BLOOD COUNT 10.6 K/UL (4.8-10.8)
[2018-07-06 17:26] LABS: BASOPHILS % (AUTO) 0.2 % (0.0-2.0); EOSINOPHILS % (AUTO) 0.1 % (0.0-3.0); NEUTROPHILS % (AUTO) 87.6 % (45.0-75.0)
[2018-07-06] MEDS ORDERED: Fluconazole 100mg tab ORAL SCH (18:00)
--- NOTE | 2018-07-06 23:34 | Pulmonology Progress Note ---
Assessment/Plan Assessment/Plan Pulmonary CCM Follow Up Patient is a 33 year old woman s/p surgery on 06/29/2018;07/03/2018 for bilateral groin/thigh abscesses/wound infection/hidradenitis suppurativa, on antibiotics as per ID, post operative LIANA given ivf and currently improved, c/o worsening SOB, had fevers yesterday >101, less SOB today, diuresed yesterday and today VQ Low Probability Other problems: # Anemia of chronic disease -- hgb currently trending in the 10-11 range, has been stable # DVT ppx with scds, consider heparin sq after surgery # Vaginal yeast infection, urine culture with yeast Objective Height (Feet): 5 Height (Inches): 8.00 Weight (Pounds): 140 General Appearance: no acute distress HEENT: normocephalic, atraumatic, anicteric, mucous membranes moist Respiratory/Chest: lungs clear, normal breath sounds, no respiratory distress, no accessory muscle use Cardiovascular: normal rate, regular rhythm, no gallop/murmur, no JVD Abdomen: normal bowel sounds, soft, non tender, no organomegaly, non distended Genitourinary: other - no cohen, no cva pain Extremities: no cyanosis Skin: no rash, ulcers - wounds - covered Neurologic/Psychiatric: doughnut fryer II-XII grossly normal, no motor/sensory deficits, alert, oriented x 3, responsive Lymphatic: no neck adenopathy Musculoskeletal: no effusion Assessment: Shortness of breath, need to R/o PE/DVT Recheck ABG PRN HHN/BiPAP Negative fluid balance - defer to Renal Monitor labs DVT PPX - start SQ Heparin acute renal failure Cellulitis Abscess / Hidradenitis suppurativa - antibiotics per ID: - AB perID - s/p excision and debridement - s/p wound closure - wound care per surgery - monitor lab - Negative balance - Monitor in ICU, PRN BiPAP Labs CXR: Bilateral interstitial change and effusions XRAY Chest 1v 07/06/2018 Indication: Shortness of breath Technique: One view of the chest Comparison: 07/05/2018 Findings: Bilateral diffuse interstitial and airspace infiltrates versus edema again demonstrated, appears slightly progressive since prior exam. Small bilateral pleural effusions persist, unchanged. The heart size is normal. Impression: Worsening bilateral pulmonary parenchymal disease, over one Probably unchanged bilateral pleural effusions Test 06/30/18 07:00 06/30/18 17:05 07/01/18 04:10 07/01/18 05:10 White Blood Count 8.7 K/UL (4.8-10.8) 9.0 K/UL (4.8-10.8) Red Blood Count 3.92 M/UL (4.20-5.40) 3.67 M/UL (4.20-5.40) Hemoglobin 11.3 G/DL (12.0-16.0) 10.6 G/DL (12.0-16.0) Hematocrit 33.8 % (37.0-47.0) 31.1 % (37.0-47.0) Mean Corpuscular Volume 86 FL (80-99) 85 FL (80-99) Mean Corpuscular Hemoglobin 28.9 PG (27.0-31.0) 28.8 PG (27.0-31.0) Mean Corpuscular Hemoglobin Concent 33.5 G/DL (32.0-36.0) 34.0 G/DL (32.0-36.0) Red Cell Distribution Width 11.2 % (11.6-14.8) 10.8 % (11.6-14.8) Platelet Count 162 K/UL (150-450) 136 K/UL (150-450) Mean Platelet Volume 7.2 FL (6.5-10.1) 7.1 FL (6.5-10.1) Neutrophils (%) (Auto) 73.8 % (45.0-75.0) 77.6 % (45.0-75.0) Lymphocytes (%) (Auto) 16.8 % (20.0-45.0) 12.7 % (20.0-45.0) Monocytes (%) (Auto) 8.5 % (1.0-10.0) 8.9 % (1.0-10.0) Eosinophils (%) (Auto) 0.6 % (0.0-3.0) 0.5 % (0.0-3.0) Basophils (%) (Auto) 0.5 % (0.0-2.0) 0.4 % (0.0-2.0) Sodium Level 139 MMOL/L (136-145) 138 MMOL/L (136-145) Potassium Level 3.7 MMOL/L (3.5-5.1) 3.0 MMOL/L (3.5-5.1) Chloride Level 104 MMOL/L (98-107) 104 MMOL/L (98-107) Carbon Dioxide Level 27 MMOL/L (21-32) 26 MMOL/L (21-32) Anion Gap 8 mmol/L (5-15) 8 mmol/L (5-15) Blood Urea Nitrogen 12 mg/dL (7-18) 9 mg/dL (7-18) Creatinine 2.5 MG/DL (0.55-1.30) 2.3 MG/DL (0.55-1.30) Estimat Glomerular Filtration Rate 22.3 mL/min (>60) 24.6 mL/min (>60) Glucose Level 100 MG/DL (74-106) 116 MG/DL (74-106) Calcium Level 8.2 MG/DL (8.5-10.1) 8.0 MG/DL (8.5-10.1) C-Reactive Protein, Quantitative 0.7 mg/dL (0.00-0.90) Urine Random Sodium < 20 mmol/L (20-110) Urine Eosinophils None seen (NONE SEEN) Uric Acid 4.6 MG/DL (2.6-7.2) Phosphorus Level 3.6 MG/DL (2.5-4.9) Magnesium Level 1.6 MG/DL (1.8-2.4) Iron Level 50 ug/dL (50-175) Total Iron Binding Capacity 215 ug/dL (250-450) Percent Iron Saturation 23 % (15-50) Unsaturated Iron Binding 165 ug/dL (112-346) Total Bilirubin 0.3 MG/DL (0.2-1.0) Gamma Glutamyl Transpeptidase 18 U/L (5-85) Aspartate Amino Transf (AST/SGOT) 16 U/L (15-37) Alanine Aminotransferase (ALT/SGPT) 12 U/L (12-78) Alkaline Phosphatase 38 U/L (46-116) Total Protein 6.1 G/DL (6.4-8.2) Albumin 2.8 G/DL (3.4-5.0) Globulin 3.3 g/dL Albumin/Globulin Ratio 0.8 (1.0-2.7) Triglycerides Level 78 MG/DL (30-150) Cholesterol Level 131 MG/DL (< 200) LDL Cholesterol 78 mg/dL (<100) HDL Cholesterol 51 MG/DL (40-60) Cholesterol/HDL Ratio 2.6 (3.3-4.4) Vitamin B12 Level 1440 PG/ML (193-986) Folate 19.7 NG/ML (8.6-58.9) Test 07/01/18 18:20 07/02/18 04:00 07/02/18 05:25 07/02/18 14:20 Sodium Level 137 MMOL/L (136-145) 138 MMOL/L (136-145) Potassium Level 3.9 MMOL/L (3.5-5.1) 3.7 MMOL/L (3.5-5.1) Chloride Level 104 MMOL/L (98-107) 106 MMOL/L (98-107) Carbon Dioxide Level 26 MMOL/L (21-32) 27 MMOL/L (21-32) Anion Gap 7 mmol/L (5-15) 5 mmol/L (5-15) Blood Urea Nitrogen 8 mg/dL (7-18) 8 mg/dL (7-18) Creatinine 2.0 MG/DL (0.55-1.30) 2.0 MG/DL (0.55-1.30) Estimat Glomerular Filtration Rate 28.9 mL/min (>60) 28.9 mL/min (>60) Glucose Level 121 MG/DL (74-106) 129 MG/DL (74-106) Calcium Level 8.2 MG/DL (8.5-10.1) 8.0 MG/DL (8.5-10.1) Urine Eosinophils None seen (NONE SEEN) White Blood Count 8.1 K/UL (4.8-10.8) Red Blood Count 3.66 M/UL (4.20-5.40) Hemoglobin 10.4 G/DL (12.0-16.0) Hematocrit 31.1 % (37.0-47.0) Mean Corpuscular Volume 85 FL (80-99) Mean Corpuscular Hemoglobin 28.5 PG (27.0-31.0) Mean Corpuscular Hemoglobin Concent 33.5 G/DL (32.0-36.0) Red Cell Distribution Width 10.8 % (11.6-14.8) Platelet Count 145 K/UL (150-450) Mean Platelet Volume 6.7 FL (6.5-10.1) Neutrophils (%) (Auto) 78.1 % (45.0-75.0) Lymphocytes (%) (Auto) 13.2 % (20.0-45.0) Monocytes (%) (Auto) 7.3 % (1.0-10.0) Eosinophils (%) (Auto) 0.8 % (0.0-3.0) Basophils (%) (Auto) 0.5 % (0.0-2.0) Phosphorus Level 2.9 MG/DL (2.5-4.9) Magnesium Level 2.5 MG/DL (1.8-2.4) Total Bilirubin 0.5 MG/DL (0.2-1.0) Aspartate Amino Transf (AST/SGOT) 13 U/L (15-37) Alanine Aminotransferase (ALT/SGPT) 18 U/L (12-78) Alkaline Phosphatase 36 U/L (46-116) C-Reactive Protein, Quantitative 0.5 mg/dL (0.00-0.90) Total Protein 6.3 G/DL (6.4-8.2) Albumin 3.1 G/DL (3.4-5.0) Globulin 3.2 g/dL Albumin/Globulin Ratio 1.0 (1.0-2.7) Urine Color Pale yellow Urine Appearance Slightly cloudy Urine pH 5 (4.5-8.0) Urine Specific [place] 1.010 (1.005-1.035) Urine Protein 2+ (NEGATIVE) Urine Glucose (UA) Negative (NEGATIVE) Urine Ketones Negative (NEGATIVE) Urine Blood 3+ (NEGATIVE) Urine Nitrite Negative (NEGATIVE) Urine Bilirubin Negative (NEGATIVE) Urine Urobilinogen Normal MG/DL (0.0-1.0) Urine Leukocyte Esterase 3+ (NEGATIVE) Urine RBC 5-10 /HPF (0 - 2) Urine WBC 15-20 /HPF (0 - 2) Urine Squamous Epithelial Cells Occasional /LPF Urine Bacteria Occasional /HPF (NONE) Urine Yeast Many /HPF (NONE) Urine Random Sodium < 20 mmol/L (20-110) Chest x-ray - nad, report noted Microbiology Date/Time Source Procedure Growth Status 07/02/18 14:20 Urine,Clean Catch Urine Culture - Preliminary Yeast Species Resulted Microbiology Date/Time Source Procedure Growth Status 07/02/18 14:20 Urine,Clean Catch Urine Culture - Preliminary Yeast Species Resulted Laboratory Tests Test 07/04/18 06:00 White Blood Count 7.6 K/UL (4.8-10.8) Red Blood Count 3.50 M/UL (4.20-5.40) L Hemoglobin 10.3 G/DL (12.0-16.0) L Hematocrit 30.0 % (37.0-47.0) L Mean Corpuscular Volume 86 FL (80-99) Mean Corpuscular Hemoglobin 29.3 PG (27.0-31.0) Mean Corpuscular Hemoglobin Concent 34.2 G/DL (32.0-36.0) Red Cell Distribution Width 11.0 % (11.6-14.8) L Platelet Count 150 K/UL (150-450) Mean Platelet Volume 7.6 FL (6.5-10.1) Neutrophils (%) (Auto) 81.7 % (45.0-75.0) H Lymphocytes (%) (Auto) 10.9 % (20.0-45.0) L Monocytes (%) (Auto) 5.9 % (1.0-10.0) Eosinophils (%) (Auto) 0.8 % (0.0-3.0) Basophils (%) (Auto) 0.6 % (0.0-2.0) Sodium Level 139 MMOL/L (136-145) Potassium Level 4.1 MMOL/L (3.5-5.1) Chloride Level 107 MMOL/L (98-107) Carbon Dioxide Level 24 MMOL/L (21-32) Anion Gap 8 mmol/L (5-15) Blood Urea Nitrogen 4 mg/dL (7-18) L Creatinine 1.5 MG/DL (0.55-1.30) H Estimat Glomerular Filtration Rate 40.2 mL/min (>60) Glucose Level 116 MG/DL (74-106) H Uric Acid 2.5 MG/DL (2.6-7.2) L Calcium Level 7.9 MG/DL (8.5-10.1) L Phosphorus Level 2.4 MG/DL (2.5-4.9) L Magnesium Level 1.5 MG/DL (1.8-2.4) L Total Bilirubin 0.4 MG/DL (0.2-1.0) Aspartate Amino Transf (AST/SGOT) 20 U/L (15-37) Alanine Aminotransferase (ALT/SGPT) 21 U/L (12-78) Alkaline Phosphatase 40 U/L (46-116) L C-Reactive Protein, Quantitative 2.2 mg/dL (0.00-0.90) H Total Protein 6.4 G/DL (6.4-8.2) Albumin 2.9 G/DL (3.4-5.0) L Globulin 3.5 g/dL Albumin/Globulin Ratio 0.8 (1.0-2.7) L Current Medications Medications (Trade) Dose Ordered Sig/Megan Route PRN Reason Start Time Stop Time Status Last Admin Dose Admin Acetaminophen (Tylenol) 650 mg Q4H PRN ORAL FEVER 06/29/18 11:15 07/29/18 11:14 Acetaminophen (Tylenol) 650 mg Q4H PRN ORAL FEVER 07/04/18 10:30 08/03/18 10:29 Dextrose/ Electrolytes 1,000 ml @ 125 mls/hr Q8H IV 07/02/18 12:00 08/01/18 11:59 07/04/18 11:59 Diphenhydramine HCl (Benadryl) 25 mg Q6H PRN ORAL Itching 06/29/18 00:15 07/29/18 00:14 06/29/18 00:30 Fluconazole (Diflucan) 100 mg Q24H ORAL 07/04/18 18:00 07/11/18 17:59 07/04/18 18:16 Heparin Sodium (Porcine) (Heparin 5000 units/ml) 5,000 units EVERY 12 HOURS SUBQ 07/04/18 12:00 08/03/18 11:59 07/04/18 12:09 Hydromorphone HCl 30 ml @ 0 mls/hr Q24H PRN IV For Pain 07/04/18 11:00 07/06/18 10:59 07/04/18 10:38 Linezolid 300 ml @ 300 mls/hr EVERY 12 HOURS IVPB 07/04/18 21:00 07/11/18 20:59 Miscellaneous Medication (BLOG WRITER Rate Change) 1 ea DAILY PRN MISC rate change 07/04/18 11:00 07/06/18 10:59 Miscellaneous Medication (BLOG WRITER shift volume) 1 ea Q12HR@0700,1900 MISC 07/04/18 19:00 07/06/18 18:59 07/04/18 19:00 Morphine Sulfate (Morphine Sulfate) 1 mg Q4H PRN IVP pain 07/01/18 16:45 07/08/18 16:44 07/03/18 20:47 Ondansetron HCl (Zofran) 4 mg Q6H PRN IVP Nausea & Vomiting 07/04/18 12:00 08/03/18 11:59 07/04/18 14:21 Pantoprazole (Protonix) 40 mg DAILY ORAL 07/01/18 09:00 07/31/18 08:59 07/04/18 11:51 Piperacillin Sod/ Tazobactam Sod 3.375 gm/Dextrose 110 ml @ 27.5 mls/hr Q12HR IVPB 07/04/18 21:00 07/09/18 23:59 Polyethylene Glycol (Miralax) 17 gm DAILY PRN ORAL Constipation 07/02/18 18:00 08/01/18 17:59 Potassium Phosphate 15 mm/ Sodium Chloride 280 ml @ 46.667 mls/ hr ONCE ONCE IV 07/04/18 16:00 07/04/18 21:59 07/04/18 15:59 Sennosides (Senokot) 8.6 mg DAILYPRN PRN ORAL Constipation 06/28/18 13:45 07/28/18 13:44 Zolpidem Tartrate (Ambien) 5 mg DAILYPRN PRN ORAL Insomnia 06/29/18 20:00 07/06/18 19:59 Subjective ROS Limited/Unobtainable: No Respiratory: Reports: shortness of breath Allergies: Coded Allergies: VANCOMYCIN (Verified Allergy, Mild, Itching, 06/29/18) Objective Last 24 Hour Vital Signs Date Time Temp Pulse Resp B/P (MAP) Pulse Ox O2 Delivery O2 Flow Rate FiO2 07/06/18 23:10 99 25 93 Non-Rebreather 15.0 100 07/06/18 22:58 106 23 94 Non-Rebreather 15.0 100 12/19/18 20:00 Non-Rebreather 15.0 18 20:00 19 18 19:45 107 20 92 Non-Rebreather 15.0 100 18 19:34 Non-Rebreather 15.0 100 18 19:34 108 22 90 Non-Rebreather 15.0 100 18 19:34 90 Non-Rebreather 15.0 100 07/06/18 19:00 98.9 104 22 125/66 (85) 95 18 18:00 103 25 130/68 (88) 94 18 18:00 103 25 127/66 (86) 94 18 17:00 100 25 133/68 (89) 94 18 16:00 Non-Rebreather 15.0 07/06/18 16:00 99.0 104 22 125/66 (85) 95 18 16:00 20 18 15:22 95 25 86 Non-Rebreather 15.0 100 07/06/18 15:03 97 27 83 Non-Rebreather 15.0 100 07/06/18 15:00 108 25 134/70 (91) 94 18 14:00 105 25 116/62 (80) 94 18 13:00 101 25 126/68 (87) 94 18 12:00 98.9 103 22 120/64 (82) 95 18 12:00 20 07/06/18 12:00 Non-Rebreather 15.0 07/06/18 11:04 99 25 93 Non-Rebreather 15.0 100 18 11:00 101 27 118/64 (82) 94 18 10:54 95 25 95 Non-Rebreather 15.0 100 18 10:00 105 23 122/62 (82) 92 18 09:00 108 23 128/60 (82) 92 18 08:00 Non-Rebreather 15.0 18 08:00 20 07/06/18 08:00 99.0 105 23 118/58 (78) 92 18 07:50 90 25 90 Non-Rebreather 15.0 100 07/06/18 07:30 86 26 92 Non-Rebreather 15.0 100 07/06/18 07:30 Non-Rebreather 15.0 100 07/06/18 07:30 94 Non-Rebreather 15.0 100 07/06/18 07:00 88 23 116/60 (78) 92 07/06/18 06:00 86 23 119/61 (80) 94 07/06/18 05:00 92 23 120/68 (85) 92 07/06/18 04:00 18 07/06/18 04:00 Non-Rebreather 15.0 07/06/18 04:00 99.0 81 23 118/58 (78) 92 07/06/18 04:00 77 07/06/18 03:00 77 21 113/62 (79) 92 07/06/18 02:59 Non-Rebreather 15.0 100 07/06/18 02:58 Non-Rebreather 15.0 100 07/06/18 02:00 79 21 117/56 (76) 92 07/06/18 01:00 76 21 115/59 (77) 92 07/06/18 00:30 Non-Rebreather 15.0 100 07/06/18 00:00 Non-Rebreather 15.0 07/06/18 00:00 80 07/06/18 00:00 98.5 81 21 119/65 (83) 93 07/06/18 00:00 18 Intake and Output 07/05/18 07/06/18 18:59 06:59 Intake Total 510.0 ml Output Total 880 ml 795 ml Balance -880 ml -285.0 ml Intake Oral 100 ml IV Total 410.0 ml Output Urine Total 850 ml 775 ml Drainage Total 30 ml 20 ml Laboratory Tests 07/06/18 04:40: White Blood Count 9.3, Red Blood Count 3.01L, Hemoglobin 9.1L, Hematocrit 26.5L , Mean Corpuscular Volume 88, Mean Corpuscular Hemoglobin 30.1, Mean Corpuscular Hemoglobin Concent 34.2, Red Cell Distribution Width 10.9L, Platelet Count 141L, Mean Platelet Volume 6.5, Neutrophils (%) (Auto) 80.7H, Lymphocytes (%) (Auto) 10.7L, Monocytes (%) (Auto) 7.4, Eosinophils (%) (Auto) 0.7, Basophils (%) (Auto) 0.5, Sodium Level 136, Potassium Level 4.0, Chloride Level 103, Carbon Dioxide Level 25, Anion Gap 8, Blood Urea Nitrogen 5L, Creatinine 1.3, Estimat Glomerular Filtration Rate 47.5, Glucose Level 93, Uric Acid 2.1L, Calcium Level 8.0L, Phosphorus Level 3.6, Magnesium Level 1.4L, Total Bilirubin 0.3, Aspartate Amino Transf (AST/SGOT) 26, Alanine Aminotransferase (ALT/SGPT) 29, Alkaline Phosphatase 44L, Pro-B-Type Natriuretic Peptide 1317H, Total Protein 6.2L, Albumin 2.4L, Globulin 3.8, Albumin/Globulin Ratio 0.6L 07/06/18 15:35: Sodium Level 136, Potassium Level 3.8, Chloride Level 100, Carbon Dioxide Level 25, Anion Gap 11, Blood Urea Nitrogen 5L, Creatinine 1.4H, Estimat Glomerular Filtration Rate 43.6, Glucose Level 123H, Calcium Level 8.0L 07/06/18 16:55: White Blood Count 10.6, Red Blood Count 3.29L, Hemoglobin 9.8L, Hematocrit 28.7L , Mean Corpuscular Volume 87, Mean Corpuscular Hemoglobin 29.8, Mean Corpuscular Hemoglobin Concent 34.1, Red Cell Distribution Width 10.9L, Platelet Count 188, Mean Platelet Volume 6.4L, Neutrophils (%) (Auto) 87.6H, Lymphocytes (%) (Auto) 7.0L, Monocytes (%) (Auto) 5.0, Eosinophils (%) (Auto) 0.1, Basophils (%) (Auto) 0.2, Lactic Acid Level 2.20H 07/06/18 20:05: Lactic Acid Level 1.90 Current Medications Medications (Trade) Dose Ordered Sig/Megan Route PRN Reason Start Time Stop Time Status Last Admin Dose Admin Acetaminophen (Tylenol) 650 mg Q4H PRN ORAL FEVER (temp>100.5F) 07/05/18 19:15 07/29/18 11:14 Albuterol/ Ipratropium (Albuterol/ Ipratropium) 3 ml Q4HRT HHN 07/05/18 19:00 07/10/18 10:59 07/06/18 22:58 Diphenhydramine HCl (Benadryl) 25 mg Q6H PRN ORAL Itching 07/05/18 19:00 08/04/18 18:59 Guaifenesin/ Dextromethorphan (Robitussin DM Syrup) 10 ml Q4H PRN ORAL For Cough 07/05/18 19:30 08/04/18 19:29 Heparin Sodium (Porcine) (Heparin 5000 units/ml) 5,000 units EVERY 12 HOURS SUBQ 07/05/18 21:00 08/03/18 11:59 07/06/18 20:39 Hydromorphone HCl 30 ml @ 0 mls/hr Q24H PRN IV For Pain 07/05/18 19:00 07/07/18 18:59 Hydromorphone HCl (Dilaudid) 2 mg Q3H PRN SUBQ Severe Breakthru Pain (7-10) 07/05/18 19:00 07/07/18 18:59 Hydromorphone HCl (Dilaudid) 2 mg Q4H PRN IVP Moderate Breakthru Pain (4-6) 07/05/18 19:00 07/07/18 18:59 Linezolid 300 ml @ 300 mls/hr EVERY 12 HOURS IVPB 07/05/18 21:00 07/11/18 20:59 07/06/18 20:37 Meropenem 1 gm/ Sodium Chloride 100 ml @ 200 mls/hr Q8HR IVPB 07/06/18 22:00 07/11/18 21:59 07/06/18 22:24 Miscellaneous Medication (BLOG WRITER Rate Change) 1 ea DAILY PRN MISC rate change 07/05/18 19:00 07/07/18 18:59 Miscellaneous Medication (BLOG WRITER shift volume) 1 ea Q12HR@0700,1900 MISC 07/05/18 19:00 07/07/18 18:59 07/06/18 19:23 Naloxone HCl (Narcan) 0.1 mg PRN IV see label comments 07/05/18 19:00 07/07/18 18:59 Ondansetron HCl (Zofran) 4 mg Q6H PRN IVP Nausea & Vomiting 07/05/18 19:00 08/04/18 18:59 Pantoprazole (Protonix) 40 mg DAILY ORAL 07/06/18 09:00 07/31/18 08:59 07/06/18 08:28 Polyethylene Glycol (Miralax) 17 gm DAILY PRN ORAL Constipation 07/06/18 09:00 08/01/18 17:59 Sennosides (Senokot) 8.6 mg DAILYPRN PRN ORAL Constipation 07/05/18 19:00 08/04/18 18:59 Zolpidem Tartrate (Ambien) 5 mg HSPRN PRN ORAL Insomnia 07/05/18 20:00 07/12/18 19:59 Deandre Cunningham MD Jul 06, 2018 23:34
[2018-07-07] VITALS (21 sets, daily range): BP systolic 110–128; BP diastolic 58–80
[2018-07-07] MEDS: Albuterol/Ipratropium 3ml neb HHN SCH ×5 (03:22→23:20)
[2018-07-07 05:31] LABS: BASOPHILS % (AUTO) 0.8 % (0.0-2.0); EOSINOPHILS % (AUTO) 0.6 % (0.0-3.0); HEMATOCRIT 26.6 % (37.0-47.0); HEMOGLOBIN 9.2 G/DL (12.0-16.0); LYMPHOCYTES % (AUTO) 12.6 % (20.0-45.0); MEAN CORPUSCULAR VOLUME 87 FL (80-99); PLATELET COUNT 169 K/UL (150-450); RED BLOOD COUNT 3.05 M/UL (4.20-5.40); RED CELL DISTRIBUTION WIDTH 10.6 % (11.6-14.8); WHITE BLOOD COUNT 7.4 K/UL (4.8-10.8)
[2018-07-07 05:50] LABS: APPEARANCE,URINE CLEAR; BILIRUBIN, URINE NEGATIVE (NEGATIVE); COLOR,URINE PALE YELLOW; GLUCOSE, URINE (UA) NEGATIVE (NEGATIVE); KETONES,URINE NEGATIVE (NEGATIVE); LEUKOCYTE ESTERASE ,URINE 1+ (NEGATIVE); NITRITE,URINE NEGATIVE (NEGATIVE); PH,URINE 7 (4.5-8.0); PROTEIN,URINE 1+ (NEGATIVE); UROBILINOGEN,URINE NORMAL MG/DL (0.0-1.0)
[2018-07-07 06:03] LABS: ALANINE AMINOTRANSFERASE 30 U/L (12-78); ALBUMIN 2.3 G/DL (3.4-5.0); ALBUMIN/GLOBULIN RATIO 0.5 (1.0-2.7); ALKALINE PHOSPHATASE 47 U/L (46-116); ANION GAP 6 mmol/L (5-15); ASPARTATE AMINO TRANSFERASE 22 U/L (15-37); BILIRUBIN,TOTAL 0.2 MG/DL (0.2-1.0); BLOOD UREA NITROGEN 6 mg/dL (7-18); CALCIUM 8.2 MG/DL (8.5-10.1); CARBON DIOXIDE 29 MMOL/L (21-32); CHLORIDE 103 MMOL/L (98-107); CREATININE 1.3 MG/DL (0.55-1.30); POTASSIUM 3.4 MMOL/L (3.5-5.1); SODIUM 138 MMOL/L (136-145)
[2018-07-07 06:16] LABS: PHOSPHORUS 3.8 MG/DL (2.5-4.9)
[2018-07-07] MEDS: PCA shift volume MISC SCH (07:27)
[2018-07-07] MEDS: Heparin 5000 units/ml inj SUBQ SCH ×2 (08:51→20:40)
--- NOTE | 2018-07-07 09:38 | General Progress Note ---
Progress Note Progress Note Pt seen and examined. Still in ICU. Dressings removed and incisions are healing very well with no evidence of infection. Diuresed yesterday and oxygen requirements are less and improving. CXR report pending. Continue to monitor. Appreciate Pulm recs. Davina Banegas MD. Davina Banegas MD Jul 07, 2018 09:38
--- NOTE | 2018-07-07 10:37 | Diagnostic Imaging Report ---
. Indication: Shortness of breath Technique: XRAY Chest 1v Comparison: 07/06/2018 Findings: Heart size and mediastinal contours stable. No significant interval change in bilateral hazy interstitial and airspace opacities with relative sparing of the apices. Likely bilateral pleural effusions also unchanged. No pneumothorax. Osseous structures stable. Abdominal shield again noted. Impression: No significant interval change in the radiographic appearance of the chest compared to one day prior. Findings as above.
--- NOTE | 2018-07-07 13:24 | General Progress Note ---
Assessment/Plan Problem List: (1) Acute respiratory failure with hypoxia ICD Codes: J96.01 - Acute respiratory failure with hypoxia SNOMED: 78447338, 789331907 (2) Pain ICD Codes: R52 - Pain, unspecified SNOMED: 75189855 (3) Cellulitis ICD Codes: L03.90 - Cellulitis, unspecified SNOMED: 552964088 (4) Abscess ICD Codes: L02.91 - Cutaneous abscess, unspecified SNOMED: 398787064 (5) Hidradenitis suppurativa ICD Codes: L73.2 - Hidradenitis suppurativa SNOMED: 23480414 (6) LIANA (acute kidney injury) ICD Codes: N17.9 - Acute kidney failure, unspecified SNOMED: 94244850 (7) Constipation ICD Codes: K59.00 - Constipation, unspecified SNOMED: 03059842 (8) UTI (urinary tract infection) ICD Codes: N39.0 - Urinary tract infection, site not specified SNOMED: 64899224 Qualifiers: Qualified Codes: N30.00 - Acute cystitis without hematuria Status: stable Assessment/Plan #Acute Hypoxic Respiratory Failure currently on abx started on 3L NCL as patient desating to 89% off oxygen yesterday breathing tx improving ambulate cont to wean off o2 transfer out of ICU today continue IS #Abscess #Cellulitis #Hidradenitis Suppurative #Pain s/p excision 06/29/18, s/p Closure cont abx per ID recs continue excellent post op care prophylactic anticoagulation per surgery, Incentive Spirometry, abx iv, pain control , will dc with PO abx #allergic reaction to vancomycin vanco stopped, abx per ID #ATN due to abx vs vanco allergic reaction Cr improving, Cr 1.3 today monitor closely cautious with diuresis avoid nephrotoxins #Constipation feeling better having BMs denies nausea/vomiting #UTI diflucan given for yeast infection ppx: scd diet: regular [facility] will required an estimated 3-5 midnights stay due to antibiotic management along with procedures required by plastic surgery. I spent over 50 minutes on this patient's case, and over 35 minutes was dedicated to counseling and/or care coordination. patient requiring ICU bed for close hemodynamic/respiratory/ vitals monitoring , transfer to floor today I have reviewed all labs, imaging, and medications and have discussed findings with patient Subjective Allergies: Coded Allergies: VANCOMYCIN (Verified Allergy, Mild, Itching, 06/29/18) Subjective f/u inguinal abscesses with surrounding cellulitis concerns for hydradenitis suppurativa, LIANA and new acute hypoxic respiratory failure currently in ICU, breathing at 93% on ncl 3L planned to wean off o2 patient desaturating to 87% when off o2 and talking discussed case and plan with patient she is improving and stable, transfer out of ICU today ambulate ROS: 14 point ROS reviewed and negative except for the above Objective Last 24 Hour Vital Signs Date Time Temp Pulse Resp B/P (MAP) Pulse Ox O2 Delivery O2 Flow Rate FiO2 07/07/18 13:00 82 20 114/60 (78) 98 07/07/18 12:00 Venturi Mask 15.0 07/07/18 12:00 85 07/07/18 12:00 18 07/07/18 12:00 98.6 80 25 115/60 (78) 98 07/07/18 11:00 88 20 128/68 (88) 98 07/07/18 10:49 93 20 94 Venturi Mask 10.0 45 07/07/18 10:37 88 20 96 Venturi Mask 12.0 50 07/07/18 10:00 85 21 118/62 (80) 98 07/07/18 09:00 88 21 125/65 (85) 98 07/07/18 08:00 18 07/07/18 08:00 Venturi Mask 15.0 07/07/18 08:00 95 07/07/18 08:00 98.7 95 25 122/64 (83) 98 07/07/18 07:25 88 20 95 Venturi Mask 14.0 55 07/07/18 07:16 Non-Rebreather 15.0 100 07/07/18 07:16 100 Non-Rebreather 15.0 100 07/07/18 07:16 91 20 100 Non-Rebreather 15.0 100 07/07/18 07:00 91 21 128/66 (86) 98 07/07/18 06:00 90 21 121/65 (83) 98 07/07/18 05:00 90 21 124/69 (87) 99 07/07/18 04:00 98.7 90 21 116/61 (79) 100 12/20/18 04:00 Non-Rebreather 15.0 07/07/18 04:00 78 07/07/18 04:00 18 07/07/18 03:32 86 19 96 Non-Rebreather 15.0 100 07/07/18 03:22 88 21 94 Non-Rebreather 15.0 100 07/07/18 03:00 80 22 112/62 (79) 96 07/07/18 02:00 89 25 122/75 (91) 97 07/07/18 01:00 81 21 122/58 (79) 100 07/07/18 00:00 94 07/07/18 00:00 18 07/07/18 00:00 Non-Rebreather 15.0 07/07/18 00:00 99.1 96 23 122/58 (79) 97 07/06/18 23:10 99 25 93 Non-Rebreather 15.0 100 07/06/18 23:00 97 23 111/67 (82) 97 07/06/18 22:58 106 23 94 Non-Rebreather 15.0 100 07/06/18 22:00 100 24 119/67 (84) 96 07/06/18 21:00 102 24 111/56 (74) 98 07/06/18 20:00 99.0 108 24 123/66 (85) 94 18 20:00 Non-Rebreather 15.0 07/06/18 20:00 96 18 20:00 19 18 19:45 107 20 92 Non-Rebreather 15.0 100 07/06/18 19:34 Non-Rebreather 15.0 100 07/06/18 19:34 108 22 90 Non-Rebreather 15.0 100 18 19:34 90 Non-Rebreather 15.0 100 07/06/18 19:00 98.9 104 22 125/66 (85) 95 18 18:00 103 25 130/68 (88) 94 18 18:00 103 25 127/66 (86) 94 18 17:00 100 25 133/68 (89) 94 18 16:00 Non-Rebreather 15.0 07/06/18 16:00 99.0 104 22 125/66 (85) 95 07/06/18 16:00 20 07/06/18 15:22 95 25 86 Non-Rebreather 15.0 100 07/06/18 15:03 97 27 83 Non-Rebreather 15.0 100 07/06/18 15:00 108 25 134/70 (91) 94 07/06/18 14:00 105 25 116/62 (80) 94 Intake and Output 07/06/18 07/07/18 19:00 07:00 Intake Total 600 ml 400 ml Output Total 1110 ml 3522 ml Balance -510 ml -3122 ml IV Total 600 ml 400 ml Output Urine Total 1110 ml 3500 ml Drainage Total 22 ml Laboratory Tests 07/06/18 15:35: Sodium Level 136, Potassium Level 3.8, Chloride Level 100, Carbon Dioxide Level 25, Anion Gap 11, Blood Urea Nitrogen 5L, Creatinine 1.4H, Estimat Glomerular Filtration Rate 43.6, Glucose Level 123H, Calcium Level 8.0L 07/06/18 16:55: White Blood Count 10.6, Red Blood Count 3.29L, Hemoglobin 9.8L, Hematocrit 28.7L , Mean Corpuscular Volume 87, Mean Corpuscular Hemoglobin 29.8, Mean Corpuscular Hemoglobin Concent 34.1, Red Cell Distribution Width 10.9L, Platelet Count 188, Mean Platelet Volume 6.4L, Neutrophils (%) (Auto) 87.6H, Lymphocytes (%) (Auto) 7.0L, Monocytes (%) (Auto) 5.0, Eosinophils (%) (Auto) 0.1, Basophils (%) (Auto) 0.2, Lactic Acid Level 2.20H 07/06/18 20:05: Lactic Acid Level 1.90 07/07/18 04:30: Sodium Level 138, Potassium Level 3.4L, Chloride Level 103, Carbon Dioxide Level 29, Anion Gap 6, Blood Urea Nitrogen 6L, Creatinine 1.3, Estimat Glomerular Filtration Rate 47.5, Glucose Level 101, Calcium Level 8.2L, White Blood Count 7.4, Red Blood Count 3.05L, Hemoglobin 9.2L, Hematocrit 26.6L, Mean Corpuscular Volume 87, Mean Corpuscular Hemoglobin 30.1, Mean Corpuscular Hemoglobin Concent 34.4, Red Cell Distribution Width 10.6L, Platelet Count 169, Mean Platelet Volume 6.4L, Neutrophils (%) (Auto) 77.0H, Lymphocytes (%) (Auto) 12.6L, Monocytes (%) (Auto) 9.0, Eosinophils (%) (Auto) 0.6, Basophils (%) (Auto ) 0.8, Uric Acid 2.7, Phosphorus Level 3.8, Magnesium Level 1.8, Total Bilirubin 0.2, Aspartate Amino Transf (AST/SGOT) 22, Alanine Aminotransferase ( ALT/SGPT) 30, Alkaline Phosphatase 47, C-Reactive Protein, Quantitative 24.7H, Pro-B-Type Natriuretic Peptide 938H, Total Protein 6.5, Albumin 2.3L, Globulin 4.2, Albumin/Globulin Ratio 0.5L 07/07/18 05:00: Urine Color Pale yellow, Urine Appearance Clear, Urine pH 7, Urine Specific [place] 1.020, Urine Protein 1+H, Urine Glucose (UA) Negative, Urine Ketones Negative, Urine Blood 2+H, Urine Nitrite Negative, Urine Bilirubin Negative, Urine Urobilinogen Normal, Urine Leukocyte Esterase 1+H, Urine RBC 2-4H, Urine WBC 5-10H, Urine Squamous Epithelial Cells Few, Urine Bacteria Few Height (Feet): 5 Height (Inches): 8.00 Weight (Pounds): 148 Objective General Appearance: WD/WN, no apparent distress, alert EENT: PERRL/EOMI, normal ENT inspection, TMs normal, pharynx normal Neck: non-tender, normal alignment, supple, normal inspection Cardiovascular: normal peripheral pulses, normal rate, regular rhythm Respiratory/Chest: chest wall non-tender, lungs clear to auscultation, no respiratory distress, no accessory muscle use Abdomen: normal bowel sounds, non tender, soft, no organomegaly, no mass Extremities: normal range of motion, non-tender, normal inspection Neurologic: joiner II-XII grossly normal, no motor/sensory deficits, alert, oriented x 3, responsive, normal mood/affect Skin: normal pigmentation, warm/dry Agustin Heredia MD Jul 07, 2018 13:24
--- NOTE | 2018-07-07 14:44 | Infectious Diseases Prog Note ---
Assessment/Plan Assessment/Plan ASSESSMENT AND PLAN: 1. bilateral groin/thigh abscesses/wound infection/hidradenitis suppurativa, recent vaginal yeast infection, urine culture with yeast sob, fevers, pulmoary edema vs other, ? HCAP, ? sepsis, tachycardia - meropenem and zyvox - check cultures, monitor labs, monitor chest x-ray - allergies - vancomycin - s/p excision and debridement - s/p wound closure - wound care per surgery - sob/pulmonary w/u - V/Q low probability 2. ARF - renal f/u, monitor creatinine, avoid nephrotoxic abx - cr improved 3. Leukocytosis - resolved. 4. Question UTI with positive urinalysis, urine culture mixed organisms - on zosyn 5. The patient currently has anemia. 6. Allergies, vancomycin. 7. Social history is negative. 8. Family history is noncontributory. 9. MAR was noted. 10. Case discussed with RN. 11. Continue treatment per primary consultants. 12. Notes and records were noted. 13. Orders were entered. Subjective Constitutional: Reports: fever HEENT: Reports: congestion - less Respiratory: Reports: shortness of breath - less Gastrointestinal/Abdominal: Denies: diarrhea Skin: Denies: rash Allergies: Coded Allergies: VANCOMYCIN (Verified Allergy, Mild, Itching, 06/29/18) Objective Vital Signs Last 24 Hour Vital Signs Date Time Temp Pulse Resp B/P (MAP) Pulse Ox O2 Delivery O2 Flow Rate FiO2 07/07/18 13:00 82 20 114/60 (78) 98 07/07/18 12:00 Venturi Mask 15.0 07/07/18 12:00 85 07/07/18 12:00 18 07/07/18 12:00 98.6 80 25 115/60 (78) 98 07/07/18 11:00 88 20 128/68 (88) 98 07/07/18 10:49 93 20 94 Venturi Mask 10.0 45 07/07/18 10:37 88 20 96 Venturi Mask 12.0 50 07/07/18 10:00 85 21 118/62 (80) 98 07/07/18 09:00 88 21 125/65 (85) 98 07/07/18 08:00 18 07/07/18 08:00 Venturi Mask 15.0 12/20/18 08:00 95 07/07/18 08:00 98.7 95 25 122/64 (83) 98 07/07/18 07:25 88 20 95 Venturi Mask 14.0 55 07/07/18 07:16 Non-Rebreather 15.0 100 07/07/18 07:16 100 Non-Rebreather 15.0 100 07/07/18 07:16 91 20 100 Non-Rebreather 15.0 100 07/07/18 07:00 91 21 128/66 (86) 98 07/07/18 06:00 90 21 121/65 (83) 98 07/07/18 05:00 90 21 124/69 (87) 99 07/07/18 04:00 98.7 90 21 116/61 (79) 100 07/07/18 04:00 Non-Rebreather 15.0 07/07/18 04:00 78 07/07/18 04:00 18 07/07/18 03:32 86 19 96 Non-Rebreather 15.0 100 07/07/18 03:22 88 21 94 Non-Rebreather 15.0 100 07/07/18 03:00 80 22 112/62 (79) 96 07/07/18 02:00 89 25 122/75 (91) 97 07/07/18 01:00 81 21 122/58 (79) 100 07/07/18 00:00 94 07/07/18 00:00 18 07/07/18 00:00 Non-Rebreather 15.0 07/07/18 00:00 99.1 96 23 122/58 (79) 97 07/06/18 23:10 99 25 93 Non-Rebreather 15.0 100 07/06/18 23:00 97 23 111/67 (82) 97 07/06/18 22:58 106 23 94 Non-Rebreather 15.0 100 07/06/18 22:00 100 24 119/67 (84) 96 07/06/18 21:00 102 24 111/56 (74) 98 07/06/18 20:00 99.0 108 24 123/66 (85) 94 07/06/18 20:00 Non-Rebreather 15.0 07/06/18 20:00 96 07/06/18 20:00 19 07/06/18 19:45 107 20 92 Non-Rebreather 15.0 100 18 19:34 Non-Rebreather 15.0 100 07/06/18 19:34 108 22 90 Non-Rebreather 15.0 100 18 19:34 90 Non-Rebreather 15.0 100 07/06/18 19:00 98.9 104 22 125/66 (85) 95 18 18:00 103 25 130/68 (88) 94 18 18:00 103 25 127/66 (86) 94 18 17:00 100 25 133/68 (89) 94 18 16:00 Non-Rebreather 15.0 07/06/18 16:00 99.0 104 22 125/66 (85) 95 18 16:00 20 07/06/18 15:22 95 25 86 Non-Rebreather 15.0 100 18 15:03 97 27 83 Non-Rebreather 15.0 100 07/06/18 15:00 108 25 134/70 (91) 94 Height (Feet): 5 Height (Inches): 8.00 Weight (Pounds): 148 General Appearance: no acute distress HEENT: normocephalic, atraumatic, anicteric, mucous membranes moist, EOMI, supple, no JVD Respiratory/Chest: crackles/rales - few, rhonchi - bilaterally - few Cardiovascular: normal rate, regular rhythm, no gallop/murmur Abdomen: normal bowel sounds, soft, non tender, no organomegaly Objective Labs Test 06/30/18 07:00 06/30/18 17:05 07/01/18 04:10 07/01/18 05:10 White Blood Count 8.7 K/UL (4.8-10.8) 9.0 K/UL (4.8-10.8) Red Blood Count 3.92 M/UL (4.20-5.40) 3.67 M/UL (4.20-5.40) Hemoglobin 11.3 G/DL (12.0-16.0) 10.6 G/DL (12.0-16.0) Hematocrit 33.8 % (37.0-47.0) 31.1 % (37.0-47.0) Mean Corpuscular Volume 86 FL (80-99) 85 FL (80-99) Mean Corpuscular Hemoglobin 28.9 PG (27.0-31.0) 28.8 PG (27.0-31.0) Mean Corpuscular Hemoglobin Concent 33.5 G/DL (32.0-36.0) 34.0 G/DL (32.0-36.0) Red Cell Distribution Width 11.2 % (11.6-14.8) 10.8 % (11.6-14.8) Platelet Count 162 K/UL (150-450) 136 K/UL (150-450) Mean Platelet Volume 7.2 FL (6.5-10.1) 7.1 FL (6.5-10.1) Neutrophils (%) (Auto) 73.8 % (45.0-75.0) 77.6 % (45.0-75.0) Lymphocytes (%) (Auto) 16.8 % (20.0-45.0) 12.7 % (20.0-45.0) Monocytes (%) (Auto) 8.5 % (1.0-10.0) 8.9 % (1.0-10.0) Eosinophils (%) (Auto) 0.6 % (0.0-3.0) 0.5 % (0.0-3.0) Basophils (%) (Auto) 0.5 % (0.0-2.0) 0.4 % (0.0-2.0) Sodium Level 139 MMOL/L (136-145) 138 MMOL/L (136-145) Potassium Level 3.7 MMOL/L (3.5-5.1) 3.0 MMOL/L (3.5-5.1) Chloride Level 104 MMOL/L (98-107) 104 MMOL/L (98-107) Carbon Dioxide Level 27 MMOL/L (21-32) 26 MMOL/L (21-32) Anion Gap 8 mmol/L (5-15) 8 mmol/L (5-15) Blood Urea Nitrogen 12 mg/dL (7-18) 9 mg/dL (7-18) Creatinine 2.5 MG/DL (0.55-1.30) 2.3 MG/DL (0.55-1.30) Estimat Glomerular Filtration Rate 22.3 mL/min (>60) 24.6 mL/min (>60) Glucose Level 100 MG/DL (74-106) 116 MG/DL (74-106) Calcium Level 8.2 MG/DL (8.5-10.1) 8.0 MG/DL (8.5-10.1) C-Reactive Protein, Quantitative 0.7 mg/dL (0.00-0.90) Urine Random Sodium < 20 mmol/L (20-110) Urine Eosinophils None seen (NONE SEEN) Uric Acid 4.6 MG/DL (2.6-7.2) Phosphorus Level 3.6 MG/DL (2.5-4.9) Magnesium Level 1.6 MG/DL (1.8-2.4) Iron Level 50 ug/dL (50-175) Total Iron Binding Capacity 215 ug/dL (250-450) Percent Iron Saturation 23 % (15-50) Unsaturated Iron Binding 165 ug/dL (112-346) Total Bilirubin 0.3 MG/DL (0.2-1.0) Gamma Glutamyl Transpeptidase 18 U/L (5-85) Aspartate Amino Transf (AST/SGOT) 16 U/L (15-37) Alanine Aminotransferase (ALT/SGPT) 12 U/L (12-78) Alkaline Phosphatase 38 U/L (46-116) Total Protein 6.1 G/DL (6.4-8.2) Albumin 2.8 G/DL (3.4-5.0) Globulin 3.3 g/dL Albumin/Globulin Ratio 0.8 (1.0-2.7) Triglycerides Level 78 MG/DL (30-150) Cholesterol Level 131 MG/DL (< 200) LDL Cholesterol 78 mg/dL (<100) HDL Cholesterol 51 MG/DL (40-60) Cholesterol/HDL Ratio 2.6 (3.3-4.4) Vitamin B12 Level 1440 PG/ML (193-986) Folate 19.7 NG/ML (8.6-58.9) Test 07/01/18 18:20 07/02/18 04:00 07/02/18 05:25 07/02/18 14:20 Sodium Level 137 MMOL/L (136-145) 138 MMOL/L (136-145) Potassium Level 3.9 MMOL/L (3.5-5.1) 3.7 MMOL/L (3.5-5.1) Chloride Level 104 MMOL/L (98-107) 106 MMOL/L (98-107) Carbon Dioxide Level 26 MMOL/L (21-32) 27 MMOL/L (21-32) Anion Gap 7 mmol/L (5-15) 5 mmol/L (5-15) Blood Urea Nitrogen 8 mg/dL (7-18) 8 mg/dL (7-18) Creatinine 2.0 MG/DL (0.55-1.30) 2.0 MG/DL (0.55-1.30) Estimat Glomerular Filtration Rate 28.9 mL/min (>60) 28.9 mL/min (>60) Glucose Level 121 MG/DL (74-106) 129 MG/DL (74-106) Calcium Level 8.2 MG/DL (8.5-10.1) 8.0 MG/DL (8.5-10.1) Urine Eosinophils None seen (NONE SEEN) White Blood Count 8.1 K/UL (4.8-10.8) Red Blood Count 3.66 M/UL (4.20-5.40) Hemoglobin 10.4 G/DL (12.0-16.0) Hematocrit 31.1 % (37.0-47.0) Mean Corpuscular Volume 85 FL (80-99) Mean Corpuscular Hemoglobin 28.5 PG (27.0-31.0) Mean Corpuscular Hemoglobin Concent 33.5 G/DL (32.0-36.0) Red Cell Distribution Width 10.8 % (11.6-14.8) Platelet Count 145 K/UL (150-450) Mean Platelet Volume 6.7 FL (6.5-10.1) Neutrophils (%) (Auto) 78.1 % (45.0-75.0) Lymphocytes (%) (Auto) 13.2 % (20.0-45.0) Monocytes (%) (Auto) 7.3 % (1.0-10.0) Eosinophils (%) (Auto) 0.8 % (0.0-3.0) Basophils (%) (Auto) 0.5 % (0.0-2.0) Phosphorus Level 2.9 MG/DL (2.5-4.9) Magnesium Level 2.5 MG/DL (1.8-2.4) Total Bilirubin 0.5 MG/DL (0.2-1.0) Aspartate Amino Transf (AST/SGOT) 13 U/L (15-37) Alanine Aminotransferase (ALT/SGPT) 18 U/L (12-78) Alkaline Phosphatase 36 U/L (46-116) C-Reactive Protein, Quantitative 0.5 mg/dL (0.00-0.90) Total Protein 6.3 G/DL (6.4-8.2) Albumin 3.1 G/DL (3.4-5.0) Globulin 3.2 g/dL Albumin/Globulin Ratio 1.0 (1.0-2.7) Urine Color Pale yellow Urine Appearance Slightly cloudy Urine pH 5 (4.5-8.0) Urine Specific [place] 1.010 (1.005-1.035) Urine Protein 2+ (NEGATIVE) Urine Glucose (UA) Negative (NEGATIVE) Urine Ketones Negative (NEGATIVE) Urine Blood 3+ (NEGATIVE) Urine Nitrite Negative (NEGATIVE) Urine Bilirubin Negative (NEGATIVE) Urine Urobilinogen Normal MG/DL (0.0-1.0) Urine Leukocyte Esterase 3+ (NEGATIVE) Urine RBC 5-10 /HPF (0 - 2) Urine WBC 15-20 /HPF (0 - 2) Urine Squamous Epithelial Cells Occasional /LPF Urine Bacteria Occasional /HPF (NONE) Urine Yeast Many /HPF (NONE) Urine Random Sodium < 20 mmol/L (20-110) Chest x-ray - nad, report noted Laboratory Tests Test 07/06/18 15:35 07/06/18 16:55 07/06/18 20:05 07/07/18 04:30 Sodium Level 136 MMOL/L (136-145) 138 MMOL/L (136-145) Potassium Level 3.8 MMOL/L (3.5-5.1) 3.4 MMOL/L (3.5-5.1) L Chloride Level 100 MMOL/L (98-107) 103 MMOL/L (98-107) Carbon Dioxide Level 25 MMOL/L (21-32) 29 MMOL/L (21-32) Anion Gap 11 mmol/L (5-15) 6 mmol/L (5-15) Blood Urea Nitrogen 5 mg/dL (7-18) L 6 mg/dL (7-18) L Creatinine 1.4 MG/DL (0.55-1.30) H 1.3 MG/DL (0.55-1.30) Estimat Glomerular Filtration Rate 43.6 mL/min (>60) 47.5 mL/min (>60) Glucose Level 123 MG/DL (74-106) H 101 MG/DL (74-106) Calcium Level 8.0 MG/DL (8.5-10.1) L 8.2 MG/DL (8.5-10.1) L White Blood Count 10.6 K/UL (4.8-10.8) 7.4 K/UL (4.8-10.8) Red Blood Count 3.29 M/UL (4.20-5.40) L 3.05 M/UL (4.20-5.40) L Hemoglobin 9.8 G/DL (12.0-16.0) L 9.2 G/DL (12.0-16.0) L Hematocrit 28.7 % (37.0-47.0) L 26.6 % (37.0-47.0) L Mean Corpuscular Volume 87 FL (80-99) 87 FL (80-99) Mean Corpuscular Hemoglobin 29.8 PG (27.0-31.0) 30.1 PG (27.0-31.0) Mean Corpuscular Hemoglobin Concent 34.1 G/DL (32.0-36.0) 34.4 G/DL (32.0-36.0) Red Cell Distribution Width 10.9 % (11.6-14.8) L 10.6 % (11.6-14.8) L Platelet Count 188 K/UL (150-450) 169 K/UL (150-450) Mean Platelet Volume 6.4 FL (6.5-10.1) L 6.4 FL (6.5-10.1) L Neutrophils (%) (Auto) 87.6 % (45.0-75.0) H 77.0 % (45.0-75.0) H Lymphocytes (%) (Auto) 7.0 % (20.0-45.0) L 12.6 % (20.0-45.0) L Monocytes (%) (Auto) 5.0 % (1.0-10.0) 9.0 % (1.0-10.0) Eosinophils (%) (Auto) 0.1 % (0.0-3.0) 0.6 % (0.0-3.0) Basophils (%) (Auto) 0.2 % (0.0-2.0) 0.8 % (0.0-2.0) Lactic Acid Level 2.20 mmol/L (0.4-2.0) H 1.90 mmol/L (0.66-2.22) Uric Acid 2.7 MG/DL (2.6-7.2) Phosphorus Level 3.8 MG/DL (2.5-4.9) Magnesium Level 1.8 MG/DL (1.8-2.4) Total Bilirubin 0.2 MG/DL (0.2-1.0) Aspartate Amino Transf (AST/SGOT) 22 U/L (15-37) Alanine Aminotransferase (ALT/SGPT) 30 U/L (12-78) Alkaline Phosphatase 47 U/L (46-116) C-Reactive Protein, Quantitative 24.7 mg/dL (0.00-0.90) H Pro-B-Type Natriuretic Peptide 938 pg/mL (0-125) H Total Protein 6.5 G/DL (6.4-8.2) Albumin 2.3 G/DL (3.4-5.0) L Globulin 4.2 g/dL Albumin/Globulin Ratio 0.5 (1.0-2.7) L Test 07/07/18 05:00 Urine Color Pale yellow Urine Appearance Clear Urine pH 7 (4.5-8.0) Urine Specific [place] 1.020 (1.005-1.035) Urine Protein 1+ (NEGATIVE) H Urine Glucose (UA) Negative (NEGATIVE) Urine Ketones Negative (NEGATIVE) Urine Blood 2+ (NEGATIVE) H Urine Nitrite Negative (NEGATIVE) Urine Bilirubin Negative (NEGATIVE) Urine Urobilinogen Normal MG/DL (0.0-1.0) Urine Leukocyte Esterase 1+ (NEGATIVE) H Urine RBC 2-4 /HPF (0 - 2) H Urine WBC 5-10 /HPF (0 - 2) H Urine Squamous Epithelial Cells Few /LPF (NONE/OCC) Urine Bacteria Few /HPF (NONE) Current Medications Medications (Trade) Dose Ordered Sig/Megan Route PRN Reason Start Time Stop Time Status Last Admin Dose Admin Acetaminophen (Tylenol) 650 mg Q4H PRN ORAL FEVER (temp>100.5F) 07/05/18 19:15 07/29/18 11:14 Albuterol/ Ipratropium (Albuterol/ Ipratropium) 3 ml Q4HRT HHN 07/05/18 19:00 07/10/18 10:59 07/07/18 10:37 Diphenhydramine HCl (Benadryl) 25 mg Q6H PRN ORAL Itching 07/05/18 19:00 08/04/18 18:59 Guaifenesin/ Dextromethorphan (Robitussin DM Syrup) 10 ml Q4H PRN ORAL For Cough 07/05/18 19:30 08/04/18 19:29 Heparin Sodium (Porcine) (Heparin 5000 units/ml) 5,000 units EVERY 12 HOURS SUBQ 07/05/18 21:00 08/03/18 11:59 07/07/18 08:51 Hydromorphone HCl 30 ml @ 0 mls/hr Q24H PRN IV For Pain 07/05/18 19:00 07/07/18 18:59 Hydromorphone HCl (Dilaudid) 2 mg Q3H PRN SUBQ Severe Breakthru Pain (7-10) 07/05/18 19:00 07/07/18 18:59 Hydromorphone HCl (Dilaudid) 2 mg Q4H PRN IVP Moderate Breakthru Pain (4-6) 07/05/18 19:00 07/07/18 18:59 Linezolid 300 ml @ 300 mls/hr EVERY 12 HOURS IVPB 07/05/18 21:00 07/11/18 20:59 07/07/18 09:00 Meropenem 1 gm/ Sodium Chloride 100 ml @ 200 mls/hr Q8HR IVPB 07/06/18 22:00 07/11/18 21:59 07/07/18 06:17 Miscellaneous Medication (VIRTUALIZATION ENGINEER Rate Change) 1 ea DAILY PRN MISC rate change 07/05/18 19:00 07/07/18 18:59 Miscellaneous Medication (VIRTUALIZATION ENGINEER shift volume) 1 ea Q12HR@0700,1900 MISC 07/05/18 19:00 07/07/18 18:59 07/07/18 07:27 Naloxone HCl (Narcan) 0.1 mg PRN IV see label comments 07/05/18 19:00 07/07/18 18:59 Ondansetron HCl (Zofran) 4 mg Q6H PRN IVP Nausea & Vomiting 07/05/18 19:00 08/04/18 18:59 Pantoprazole (Protonix) 40 mg DAILY ORAL 07/06/18 09:00 07/31/18 08:59 07/07/18 08:51 Polyethylene Glycol (Miralax) 17 gm DAILY PRN ORAL Constipation 07/06/18 09:00 08/01/18 17:59 Senna/Docusate Sodium (Elvi-Colace) 1 tab BIDPRN PRN ORAL Constipation 07/07/18 16:00 08/06/18 15:59 Sennosides (Senokot) 8.6 mg DAILYPRN PRN ORAL Constipation 07/05/18 19:00 08/04/18 18:59 Zolpidem Tartrate (Ambien) 5 mg HSPRN PRN ORAL Insomnia 07/05/18 20:00 07/12/18 19:59 Joseph Brooks MD Jul 07, 2018 14:44
--- NOTE | 2018-07-07 14:55 | Nephrology Progress Note ---
Assessment/Plan Problem List: (1) Acute renal failure Assessment: Cr wnl (2) UTI (urinary tract infection) (3) Hidradenitis suppurativa (4) Cellulitis (5) Hypoxia Assessment off O2 , the puls Ox drops ! acute renal failure Cr wnl Hypotension Pain Cellulitis Abcess / Hidradenitis suppurativea UTI Plan K and Mag , phos supplement as needed stool softner per pulmonary no IV fluids Urine studies Avoid Nephrotoxics Monitor renal parameters Antibiotics per ID CXR bilat lower process Bilateral basilar infiltrates versus edema, and bilateral pleural effusions, developing since 06/28/2018 Subjective ROS Limited/Unobtainable: No Objective Objective Last 24 Hour Vital Signs Date Time Temp Pulse Resp B/P (MAP) Pulse Ox O2 Delivery O2 Flow Rate FiO2 07/07/18 13:00 82 20 114/60 (78) 98 07/07/18 12:00 Venturi Mask 15.0 07/07/18 12:00 85 07/07/18 12:00 18 07/07/18 12:00 98.6 80 25 115/60 (78) 98 07/07/18 11:00 88 20 128/68 (88) 98 07/07/18 10:49 93 20 94 Venturi Mask 10.0 45 07/07/18 10:37 88 20 96 Venturi Mask 12.0 50 07/07/18 10:00 85 21 118/62 (80) 98 07/07/18 09:00 88 21 125/65 (85) 98 07/07/18 08:00 18 07/07/18 08:00 Venturi Mask 15.0 07/07/18 08:00 95 07/07/18 08:00 98.7 95 25 122/64 (83) 98 07/07/18 07:25 88 20 95 Venturi Mask 14.0 55 07/07/18 07:16 Non-Rebreather 15.0 100 07/07/18 07:16 100 Non-Rebreather 15.0 100 07/07/18 07:16 91 20 100 Non-Rebreather 15.0 100 07/07/18 07:00 91 21 128/66 (86) 98 07/07/18 06:00 90 21 121/65 (83) 98 07/07/18 05:00 90 21 124/69 (87) 99 07/07/18 04:00 98.7 90 21 116/61 (79) 100 07/07/18 04:00 Non-Rebreather 15.0 07/07/18 04:00 78 07/07/18 04:00 18 07/07/18 03:32 86 19 96 Non-Rebreather 15.0 100 07/07/18 03:22 88 21 94 Non-Rebreather 15.0 100 07/07/18 03:00 80 22 112/62 (79) 96 07/07/18 02:00 89 25 122/75 (91) 97 07/07/18 01:00 81 21 122/58 (79) 100 07/07/18 00:00 94 07/07/18 00:00 18 07/07/18 00:00 Non-Rebreather 15.0 07/07/18 00:00 99.1 96 23 122/58 (79) 97 07/06/18 23:10 99 25 93 Non-Rebreather 15.0 100 07/06/18 23:00 97 23 111/67 (82) 97 07/06/18 22:58 106 23 94 Non-Rebreather 15.0 100 07/06/18 22:00 100 24 119/67 (84) 96 07/06/18 21:00 102 24 111/56 (74) 98 07/06/18 20:00 99.0 108 24 123/66 (85) 94 18 20:00 Non-Rebreather 15.0 07/06/18 20:00 96 18 20:00 19 07/06/18 19:45 107 20 92 Non-Rebreather 15.0 100 07/06/18 19:34 Non-Rebreather 15.0 100 07/06/18 19:34 108 22 90 Non-Rebreather 15.0 100 07/06/18 19:34 90 Non-Rebreather 15.0 100 07/06/18 19:00 98.9 104 22 125/66 (85) 95 18 18:00 103 25 130/68 (88) 94 18 18:00 103 25 127/66 (86) 94 18 17:00 100 25 133/68 (89) 94 18 16:00 Non-Rebreather 15.0 07/06/18 16:00 99.0 104 22 125/66 (85) 95 07/06/18 16:00 20 07/06/18 15:22 95 25 86 Non-Rebreather 15.0 100 07/06/18 15:03 97 27 83 Non-Rebreather 15.0 100 07/06/18 15:00 108 25 134/70 (91) 94 Intake and Output 07/06/18 07/07/18 19:00 07:00 Intake Total 600 ml 400 ml Output Total 1110 ml 3522 ml Balance -510 ml -3122 ml IV Total 600 ml 400 ml Output Urine Total 1110 ml 3500 ml Drainage Total 22 ml Laboratory Tests 07/06/18 15:35: Sodium Level 136, Potassium Level 3.8, Chloride Level 100, Carbon Dioxide Level 25, Anion Gap 11, Blood Urea Nitrogen 5L, Creatinine 1.4H, Estimat Glomerular Filtration Rate 43.6, Glucose Level 123H, Calcium Level 8.0L 07/06/18 16:55: White Blood Count 10.6, Red Blood Count 3.29L, Hemoglobin 9.8L, Hematocrit 28.7L , Mean Corpuscular Volume 87, Mean Corpuscular Hemoglobin 29.8, Mean Corpuscular Hemoglobin Concent 34.1, Red Cell Distribution Width 10.9L, Platelet Count 188, Mean Platelet Volume 6.4L, Neutrophils (%) (Auto) 87.6H, Lymphocytes (%) (Auto) 7.0L, Monocytes (%) (Auto) 5.0, Eosinophils (%) (Auto) 0.1, Basophils (%) (Auto) 0.2, Lactic Acid Level 2.20H 07/06/18 20:05: Lactic Acid Level 1.90 07/07/18 04:30: Sodium Level 138, Potassium Level 3.4L, Chloride Level 103, Carbon Dioxide Level 29, Anion Gap 6, Blood Urea Nitrogen 6L, Creatinine 1.3, Estimat Glomerular Filtration Rate 47.5, Glucose Level 101, Calcium Level 8.2L, White Blood Count 7.4, Red Blood Count 3.05L, Hemoglobin 9.2L, Hematocrit 26.6L, Mean Corpuscular Volume 87, Mean Corpuscular Hemoglobin 30.1, Mean Corpuscular Hemoglobin Concent 34.4, Red Cell Distribution Width 10.6L, Platelet Count 169, Mean Platelet Volume 6.4L, Neutrophils (%) (Auto) 77.0H, Lymphocytes (%) (Auto) 12.6L, Monocytes (%) (Auto) 9.0, Eosinophils (%) (Auto) 0.6, Basophils (%) (Auto ) 0.8, Uric Acid 2.7, Phosphorus Level 3.8, Magnesium Level 1.8, Total Bilirubin 0.2, Aspartate Amino Transf (AST/SGOT) 22, Alanine Aminotransferase ( ALT/SGPT) 30, Alkaline Phosphatase 47, C-Reactive Protein, Quantitative 24.7H, Pro-B-Type Natriuretic Peptide 938H, Total Protein 6.5, Albumin 2.3L, Globulin 4.2, Albumin/Globulin Ratio 0.5L 07/07/18 05:00: Urine Color Pale yellow, Urine Appearance Clear, Urine pH 7, Urine Specific [place] 1.020, Urine Protein 1+H, Urine Glucose (UA) Negative, Urine Ketones Negative, Urine Blood 2+H, Urine Nitrite Negative, Urine Bilirubin Negative, Urine Urobilinogen Normal, Urine Leukocyte Esterase 1+H, Urine RBC 2-4H, Urine WBC 5-10H, Urine Squamous Epithelial Cells Few, Urine Bacteria Few Height (Feet): 5 Height (Inches): 8.00 Weight (Pounds): 148 General Appearance: no apparent distress EENT: other - on O2 mask Cardiovascular: normal rate Respiratory/Chest: decreased breath sounds Abdomen: soft Objective no change Ilan Nelson MD Jul 07, 2018 14:55
[2018-07-07] MEDS ORDERED: Docusate Sod/Senna tab ORAL PRN ×2 (16:00→20:00)
[2018-07-07] MEDS ORDERED: Guaifenesin/DM 10ml syrup ORAL PRN (20:00)
[2018-07-07] MEDS ORDERED: Sennosides 8.6mg tab ORAL PRN (20:00)
[2018-07-07] MEDS ORDERED: Zolpidem 5mg tab ORAL PRN (20:00)
[2018-07-07] MEDS ORDERED: Miralax 17gm pkt ORAL PRN (20:00)
[2018-07-08] VITALS: BP 127/88
[2018-07-08] MEDS: Albuterol/Ipratropium 3ml neb HHN SCH ×6 (03:34→23:04)
[2018-07-08 04:00] VITALS: BP 127/84
[2018-07-08 08:00] VITALS: BP 122/76
--- NOTE | 2018-07-08 09:27 | General Progress Note ---
Assessment/Plan Problem List: (1) Acute respiratory failure with hypoxia ICD Codes: J96.01 - Acute respiratory failure with hypoxia SNOMED: 02653308, 750084406 (2) Pain ICD Codes: R52 - Pain, unspecified SNOMED: 36727467 (3) Cellulitis ICD Codes: L03.90 - Cellulitis, unspecified SNOMED: 867479173 (4) Abscess ICD Codes: L02.91 - Cutaneous abscess, unspecified SNOMED: 377143144 (5) Hidradenitis suppurativa ICD Codes: L73.2 - Hidradenitis suppurativa SNOMED: 35381155 (6) LIANA (acute kidney injury) ICD Codes: N17.9 - Acute kidney failure, unspecified SNOMED: 82271567 (7) Constipation ICD Codes: K59.00 - Constipation, unspecified SNOMED: 15464226 (8) UTI (urinary tract infection) ICD Codes: N39.0 - Urinary tract infection, site not specified SNOMED: 16836248 Qualifiers: Qualified Codes: N30.00 - Acute cystitis without hematuria Status: stable, unchanged Assessment/Plan #Acute Hypoxic Respiratory Failure currently on abx continue on o2 ncl, continue to wean off o2 as tolerated b/l pulm effusions noted on cxr, continue with diureses, repeat CXR today in the AM, pending results breathing tx improving slowly PT today, about to work with patient now ambulate continue IS #Abscess #Cellulitis #Hidradenitis Suppurative #Pain s/p excision 06/29/18, s/p Closure cont abx per ID recs continue excellent post op care prophylactic anticoagulation per surgery, Incentive Spirometry, abx iv, pain control , will dc with PO abx #allergic reaction to vancomycin vanco stopped, abx per ID #ATN due to abx vs vanco allergic reaction Cr improving monitor closely cautious with diuresis avoid nephrotoxins #Constipation feeling better having BMs denies nausea/vomiting #UTI diflucan given for yeast infection ppx: scd diet: regular [facility] will required an estimated 3-5 midnights stay due to antibiotic management along with procedures required by plastic surgery. I spent over 65 minutes on this patient's case, and over 44 minutes was dedicated to counseling and/or care coordination. patient requiring ICU bed for close hemodynamic/respiratory/ vitals monitoring , transfer to floor today I have reviewed all labs, imaging, and medications and have discussed findings with patient Subjective Date patient seen: Jul 08, 2018 Time patient seen: 09:23 Allergies: Coded Allergies: VANCOMYCIN (Verified Allergy, Mild, Itching, 06/29/18) Subjective f/u inguinal abscesses with surrounding cellulitis concerns for hydradenitis suppurativa, LIANA and new acute hypoxic respiratory failure trying to wean off o2, patient had pulm effusions on cxr yesterday, repeat cxr today, lasix 20mg IV given today, still requiring supplemental o2 ncl planned to wean off o2 discussed case and plan with patient ambulate, work with PT today otherwise, she denies any chest pain, states she is feeling better ROS: 14 point ROS reviewed and negative except for the above Objective Last 24 Hour Vital Signs Date Time Temp Pulse Resp B/P (MAP) Pulse Ox O2 Delivery O2 Flow Rate FiO2 07/08/18 07:20 86 20 96 Venturi Mask 12.0 50 07/08/18 07:08 90 18 94 Venturi Mask 12.0 50 07/08/18 07:08 Venturi Mask 12.0 50 07/08/18 07:08 94 Venturi Mask 12.0 50 07/08/18 04:00 98.7 90 20 127/84 (98) 91 07/08/18 04:00 83 07/08/18 03:36 80 20 94 Venturi Mask 12.0 50 07/08/18 03:26 79 20 90 Venturi Mask 12.0 50 07/08/18 00:00 99.8 96 19 127/88 (101) 92 07/08/18 00:00 93 07/07/18 23:37 91 20 92 Venturi Mask 12.0 50 07/07/18 23:33 Nasal Cannula 5.0 07/07/18 23:33 92 20 92 Venturi Mask 12.0 50 07/07/18 23:32 89 Nasal Cannula 3.0 07/07/18 21:22 99.3 07/07/18 21:00 Venturi Mask 15.0 07/07/18 20:00 99 07/07/18 20:00 100.2 96 25 123/80 (94) 91 07/07/18 19:00 90 24 110/65 (80) 98 12/20/18 18:00 97 24 111/60 (77) 98 07/07/18 17:00 101 24 126/68 (87) 98 07/07/18 16:00 98.7 75 25 118/62 (80) 98 07/07/18 16:00 Venturi Mask 15.0 07/07/18 16:00 18 07/07/18 16:00 80 07/07/18 15:39 106 20 95 Nasal Cannula 3.0 32 07/07/18 15:33 97 20 93 Nasal Cannula 3.0 32 07/07/18 15:00 80 20 122/66 (84) 98 07/07/18 14:00 77 20 120/64 (82) 98 07/07/18 13:00 82 20 114/60 (78) 98 07/07/18 12:00 Venturi Mask 15.0 07/07/18 12:00 85 07/07/18 12:00 18 07/07/18 12:00 98.6 80 25 115/60 (78) 98 07/07/18 11:00 88 20 128/68 (88) 98 07/07/18 10:49 93 20 94 Venturi Mask 10.0 45 07/07/18 10:37 88 20 96 Venturi Mask 12.0 50 07/07/18 10:00 85 21 118/62 (80) 98 Intake and Output 07/07/18 07/08/18 19:00 07:00 Intake Total 400 ml Output Total 640 ml 1650 ml Balance -240 ml -1650 ml IV Total 400 ml Output Urine Total 640 ml 1650 ml Height (Feet): 5 Height (Inches): 8.00 Weight (Pounds): 148 Objective General Appearance: WD/WN, no apparent distress, alert EENT: PERRL/EOMI, normal ENT inspection, TMs normal, pharynx normal Neck: non-tender, normal alignment, supple, normal inspection Cardiovascular: normal peripheral pulses, normal rate, regular rhythm Respiratory/Chest: chest wall non-tender, lungs clear to auscultation, dec breath sounds b/l lower lobes, no respiratory distress, no accessory muscle use Abdomen: normal bowel sounds, non tender, soft, no organomegaly, no mass Extremities: normal range of motion, non-tender, normal inspection 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
[2018-07-08] MEDS: Heparin 5000 units/ml inj SUBQ SCH ×2 (10:10→20:25)
[2018-07-08 12:00] VITALS: BP 126/84
--- NOTE | 2018-07-08 12:28 | Diagnostic Imaging Report ---
Indication: Shortness of breath Technique: One view of the chest Comparison: 07/07/2018 Findings: Extensive bilateral diffuse infiltrates versus edema again demonstrated, unchanged. There may be a small amount of pleural fluid on the left. Impression: Unchanged, over one day, findings as above.
--- NOTE | 2018-07-08 14:07 | Pulmonology Progress Note ---
Assessment/Plan Assessment/Plan Pulmonary CCM Follow Up Patient is a 33 year old woman s/p surgery on 06/29/2018;07/03/2018 for bilateral groin/thigh abscesses/wound infection/hidradenitis suppurativa, on antibiotics as per ID, post operative LIANA given ivf and currently improved, IVF DC, diuresed previously with improvement VQ Low Probability Other problems: # Anemia of chronic disease -- hgb currently trending in the 10-11 range, has been stable # DVT ppx with scds, consider heparin sq after surgery # Vaginal yeast infection, urine culture with yeast Objective Height (Feet): 5 Height (Inches): 8.00 Weight (Pounds): 140 General Appearance: no acute distress HEENT: normocephalic, atraumatic, anicteric, mucous membranes moist Respiratory/Chest: lungs clear, normal breath sounds, no respiratory distress, no accessory muscle use Cardiovascular: normal rate, regular rhythm, no gallop/murmur, no JVD Abdomen: normal bowel sounds, soft, non tender, no organomegaly, non distended Genitourinary: other - no cohen, no cva pain Extremities: no cyanosis Skin: no rash, ulcers - wounds - covered Neurologic/Psychiatric: benzol still operator II-XII grossly normal, no motor/sensory deficits, alert, oriented x 3, responsive Lymphatic: no neck adenopathy Musculoskeletal: no effusion Assessment: Shortness of breath, VQ negative Out on ICU PRN HHN/BiPAP Negative fluid balance Monitor labs DVT PPX - start SQ Heparin acute renal failure improved Cellulitis Abscess / Hidradenitis suppurativa - antibiotics per ID: - AB perID - s/p excision and debridement - s/p wound closure - wound care per surgery - monitor lab - Negative balance - Monitor in ICU, PRN BiPAP Labs CXR: Bilateral interstitial change and effusions XRAY Chest 1v 07/06/2018 Indication: Shortness of breath Technique: One view of the chest Comparison: 07/05/2018 Findings: Bilateral diffuse interstitial and airspace infiltrates versus edema again demonstrated, appears slightly progressive since prior exam. Small bilateral pleural effusions persist, unchanged. The heart size is normal. Impression: Worsening bilateral pulmonary parenchymal disease, over one Probably unchanged bilateral pleural effusions Test 06/30/18 07:00 06/30/18 17:05 07/01/18 04:10 07/01/18 05:10 White Blood Count 8.7 K/UL (4.8-10.8) 9.0 K/UL (4.8-10.8) Red Blood Count 3.92 M/UL (4.20-5.40) 3.67 M/UL (4.20-5.40) Hemoglobin 11.3 G/DL (12.0-16.0) 10.6 G/DL (12.0-16.0) Hematocrit 33.8 % (37.0-47.0) 31.1 % (37.0-47.0) Mean Corpuscular Volume 86 FL (80-99) 85 FL (80-99) Mean Corpuscular Hemoglobin 28.9 PG (27.0-31.0) 28.8 PG (27.0-31.0) Mean Corpuscular Hemoglobin Concent 33.5 G/DL (32.0-36.0) 34.0 G/DL (32.0-36.0) Red Cell Distribution Width 11.2 % (11.6-14.8) 10.8 % (11.6-14.8) Platelet Count 162 K/UL (150-450) 136 K/UL (150-450) Mean Platelet Volume 7.2 FL (6.5-10.1) 7.1 FL (6.5-10.1) Neutrophils (%) (Auto) 73.8 % (45.0-75.0) 77.6 % (45.0-75.0) Lymphocytes (%) (Auto) 16.8 % (20.0-45.0) 12.7 % (20.0-45.0) Monocytes (%) (Auto) 8.5 % (1.0-10.0) 8.9 % (1.0-10.0) Eosinophils (%) (Auto) 0.6 % (0.0-3.0) 0.5 % (0.0-3.0) Basophils (%) (Auto) 0.5 % (0.0-2.0) 0.4 % (0.0-2.0) Sodium Level 139 MMOL/L (136-145) 138 MMOL/L (136-145) Potassium Level 3.7 MMOL/L (3.5-5.1) 3.0 MMOL/L (3.5-5.1) Chloride Level 104 MMOL/L (98-107) 104 MMOL/L (98-107) Carbon Dioxide Level 27 MMOL/L (21-32) 26 MMOL/L (21-32) Anion Gap 8 mmol/L (5-15) 8 mmol/L (5-15) Blood Urea Nitrogen 12 mg/dL (7-18) 9 mg/dL (7-18) Creatinine 2.5 MG/DL (0.55-1.30) 2.3 MG/DL (0.55-1.30) Estimat Glomerular Filtration Rate 22.3 mL/min (>60) 24.6 mL/min (>60) Glucose Level 100 MG/DL (74-106) 116 MG/DL (74-106) Calcium Level 8.2 MG/DL (8.5-10.1) 8.0 MG/DL (8.5-10.1) C-Reactive Protein, Quantitative 0.7 mg/dL (0.00-0.90) Urine Random Sodium < 20 mmol/L (20-110) Urine Eosinophils None seen (NONE SEEN) Uric Acid 4.6 MG/DL (2.6-7.2) Phosphorus Level 3.6 MG/DL (2.5-4.9) Magnesium Level 1.6 MG/DL (1.8-2.4) Iron Level 50 ug/dL (50-175) Total Iron Binding Capacity 215 ug/dL (250-450) Percent Iron Saturation 23 % (15-50) Unsaturated Iron Binding 165 ug/dL (112-346) Total Bilirubin 0.3 MG/DL (0.2-1.0) Gamma Glutamyl Transpeptidase 18 U/L (5-85) Aspartate Amino Transf (AST/SGOT) 16 U/L (15-37) Alanine Aminotransferase (ALT/SGPT) 12 U/L (12-78) Alkaline Phosphatase 38 U/L (46-116) Total Protein 6.1 G/DL (6.4-8.2) Albumin 2.8 G/DL (3.4-5.0) Globulin 3.3 g/dL Albumin/Globulin Ratio 0.8 (1.0-2.7) Triglycerides Level 78 MG/DL (30-150) Cholesterol Level 131 MG/DL (< 200) LDL Cholesterol 78 mg/dL (<100) HDL Cholesterol 51 MG/DL (40-60) Cholesterol/HDL Ratio 2.6 (3.3-4.4) Vitamin B12 Level 1440 PG/ML (193-986) Folate 19.7 NG/ML (8.6-58.9) Test 07/01/18 18:20 07/02/18 04:00 07/02/18 05:25 07/02/18 14:20 Sodium Level 137 MMOL/L (136-145) 138 MMOL/L (136-145) Potassium Level 3.9 MMOL/L (3.5-5.1) 3.7 MMOL/L (3.5-5.1) Chloride Level 104 MMOL/L (98-107) 106 MMOL/L (98-107) Carbon Dioxide Level 26 MMOL/L (21-32) 27 MMOL/L (21-32) Anion Gap 7 mmol/L (5-15) 5 mmol/L (5-15) Blood Urea Nitrogen 8 mg/dL (7-18) 8 mg/dL (7-18) Creatinine 2.0 MG/DL (0.55-1.30) 2.0 MG/DL (0.55-1.30) Estimat Glomerular Filtration Rate 28.9 mL/min (>60) 28.9 mL/min (>60) Glucose Level 121 MG/DL (74-106) 129 MG/DL (74-106) Calcium Level 8.2 MG/DL (8.5-10.1) 8.0 MG/DL (8.5-10.1) Urine Eosinophils None seen (NONE SEEN) White Blood Count 8.1 K/UL (4.8-10.8) Red Blood Count 3.66 M/UL (4.20-5.40) Hemoglobin 10.4 G/DL (12.0-16.0) Hematocrit 31.1 % (37.0-47.0) Mean Corpuscular Volume 85 FL (80-99) Mean Corpuscular Hemoglobin 28.5 PG (27.0-31.0) Mean Corpuscular Hemoglobin Concent 33.5 G/DL (32.0-36.0) Red Cell Distribution Width 10.8 % (11.6-14.8) Platelet Count 145 K/UL (150-450) Mean Platelet Volume 6.7 FL (6.5-10.1) Neutrophils (%) (Auto) 78.1 % (45.0-75.0) Lymphocytes (%) (Auto) 13.2 % (20.0-45.0) Monocytes (%) (Auto) 7.3 % (1.0-10.0) Eosinophils (%) (Auto) 0.8 % (0.0-3.0) Basophils (%) (Auto) 0.5 % (0.0-2.0) Phosphorus Level 2.9 MG/DL (2.5-4.9) Magnesium Level 2.5 MG/DL (1.8-2.4) Total Bilirubin 0.5 MG/DL (0.2-1.0) Aspartate Amino Transf (AST/SGOT) 13 U/L (15-37) Alanine Aminotransferase (ALT/SGPT) 18 U/L (12-78) Alkaline Phosphatase 36 U/L (46-116) C-Reactive Protein, Quantitative 0.5 mg/dL (0.00-0.90) Total Protein 6.3 G/DL (6.4-8.2) Albumin 3.1 G/DL (3.4-5.0) Globulin 3.2 g/dL Albumin/Globulin Ratio 1.0 (1.0-2.7) Urine Color Pale yellow Urine Appearance Slightly cloudy Urine pH 5 (4.5-8.0) Urine Specific Felda 1.010 (1.005-1.035) Urine Protein 2+ (NEGATIVE) Urine Glucose (UA) Negative (NEGATIVE) Urine Ketones Negative (NEGATIVE) Urine Blood 3+ (NEGATIVE) Urine Nitrite Negative (NEGATIVE) Urine Bilirubin Negative (NEGATIVE) Urine Urobilinogen Normal MG/DL (0.0-1.0) Urine Leukocyte Esterase 3+ (NEGATIVE) Urine RBC 5-10 /HPF (0 - 2) Urine WBC 15-20 /HPF (0 - 2) Urine Squamous Epithelial Cells Occasional /LPF Urine Bacteria Occasional /HPF (NONE) Urine Yeast Many /HPF (NONE) Urine Random Sodium < 20 mmol/L (20-110) Chest x-ray - nad, report noted Microbiology Date/Time Source Procedure Growth Status 07/02/18 14:20 Urine,Clean Catch Urine Culture - Preliminary Yeast Species Resulted Microbiology Date/Time Source Procedure Growth Status 07/02/18 14:20 Urine,Clean Catch Urine Culture - Preliminary Yeast Species Resulted Laboratory Tests Test 07/04/18 06:00 White Blood Count 7.6 K/UL (4.8-10.8) Red Blood Count 3.50 M/UL (4.20-5.40) L Hemoglobin 10.3 G/DL (12.0-16.0) L Hematocrit 30.0 % (37.0-47.0) L Mean Corpuscular Volume 86 FL (80-99) Mean Corpuscular Hemoglobin 29.3 PG (27.0-31.0) Mean Corpuscular Hemoglobin Concent 34.2 G/DL (32.0-36.0) Red Cell Distribution Width 11.0 % (11.6-14.8) L Platelet Count 150 K/UL (150-450) Mean Platelet Volume 7.6 FL (6.5-10.1) Neutrophils (%) (Auto) 81.7 % (45.0-75.0) H Lymphocytes (%) (Auto) 10.9 % (20.0-45.0) L Monocytes (%) (Auto) 5.9 % (1.0-10.0) Eosinophils (%) (Auto) 0.8 % (0.0-3.0) Basophils (%) (Auto) 0.6 % (0.0-2.0) Sodium Level 139 MMOL/L (136-145) Potassium Level 4.1 MMOL/L (3.5-5.1) Chloride Level 107 MMOL/L (98-107) Carbon Dioxide Level 24 MMOL/L (21-32) Anion Gap 8 mmol/L (5-15) Blood Urea Nitrogen 4 mg/dL (7-18) L Creatinine 1.5 MG/DL (0.55-1.30) H Estimat Glomerular Filtration Rate 40.2 mL/min (>60) Glucose Level 116 MG/DL (74-106) H Uric Acid 2.5 MG/DL (2.6-7.2) L Calcium Level 7.9 MG/DL (8.5-10.1) L Phosphorus Level 2.4 MG/DL (2.5-4.9) L Magnesium Level 1.5 MG/DL (1.8-2.4) L Total Bilirubin 0.4 MG/DL (0.2-1.0) Aspartate Amino Transf (AST/SGOT) 20 U/L (15-37) Alanine Aminotransferase (ALT/SGPT) 21 U/L (12-78) Alkaline Phosphatase 40 U/L (46-116) L C-Reactive Protein, Quantitative 2.2 mg/dL (0.00-0.90) H Total Protein 6.4 G/DL (6.4-8.2) Albumin 2.9 G/DL (3.4-5.0) L Globulin 3.5 g/dL Albumin/Globulin Ratio 0.8 (1.0-2.7) L Current Medications Medications (Trade) Dose Ordered Sig/Megan Route PRN Reason Start Time Stop Time Status Last Admin Dose Admin Acetaminophen (Tylenol) 650 mg Q4H PRN ORAL FEVER 06/29/18 11:15 07/29/18 11:14 Acetaminophen (Tylenol) 650 mg Q4H PRN ORAL FEVER 07/04/18 10:30 08/03/18 10:29 Dextrose/ Electrolytes 1,000 ml @ 125 mls/hr Q8H IV 07/02/18 12:00 08/01/18 11:59 07/04/18 11:59 Diphenhydramine HCl (Benadryl) 25 mg Q6H PRN ORAL Itching 06/29/18 00:15 07/29/18 00:14 06/29/18 00:30 Fluconazole (Diflucan) 100 mg Q24H ORAL 07/04/18 18:00 07/11/18 17:59 07/04/18 18:16 Heparin Sodium (Porcine) (Heparin 5000 units/ml) 5,000 units EVERY 12 HOURS SUBQ 07/04/18 12:00 08/03/18 11:59 07/04/18 12:09 Hydromorphone HCl 30 ml @ 0 mls/hr Q24H PRN IV For Pain 07/04/18 11:00 07/06/18 10:59 07/04/18 10:38 Linezolid 300 ml @ 300 mls/hr EVERY 12 HOURS IVPB 07/04/18 21:00 07/11/18 20:59 Miscellaneous Medication (ORTHOPEDIC PHYSICAL THERAPIST Rate Change) 1 ea DAILY PRN MISC rate change 07/04/18 11:00 07/06/18 10:59 Miscellaneous Medication (ORTHOPEDIC PHYSICAL THERAPIST shift volume) 1 ea Q12HR@0700,1900 MISC 07/04/18 19:00 07/06/18 18:59 07/04/18 19:00 Morphine Sulfate (Morphine Sulfate) 1 mg Q4H PRN IVP pain 07/01/18 16:45 07/08/18 16:44 07/03/18 20:47 Ondansetron HCl (Zofran) 4 mg Q6H PRN IVP Nausea & Vomiting 07/04/18 12:00 08/03/18 11:59 07/04/18 14:21 Pantoprazole (Protonix) 40 mg DAILY ORAL 07/01/18 09:00 07/31/18 08:59 07/04/18 11:51 Piperacillin Sod/ Tazobactam Sod 3.375 gm/Dextrose 110 ml @ 27.5 mls/hr Q12HR IVPB 07/04/18 21:00 07/09/18 23:59 Polyethylene Glycol (Miralax) 17 gm DAILY PRN ORAL Constipation 07/02/18 18:00 08/01/18 17:59 Potassium Phosphate 15 mm/ Sodium Chloride 280 ml @ 46.667 mls/ hr ONCE ONCE IV 07/04/18 16:00 07/04/18 21:59 07/04/18 15:59 Sennosides (Senokot) 8.6 mg DAILYPRN PRN ORAL Constipation 06/28/18 13:45 07/28/18 13:44 Zolpidem Tartrate (Ambien) 5 mg DAILYPRN PRN ORAL Insomnia 06/29/18 20:00 07/06/18 19:59 Subjective ROS Limited/Unobtainable: No Allergies: Coded Allergies: VANCOMYCIN (Verified Allergy, Mild, Itching, 06/29/18) Objective Last 24 Hour Vital Signs Date Time Temp Pulse Resp B/P (MAP) Pulse Ox O2 Delivery O2 Flow Rate FiO2 07/08/18 12:00 99.1 94 20 126/84 (98) 94 07/08/18 11:40 83 07/08/18 11:21 80 18 95 Venturi Mask 12.0 50 07/08/18 11:10 83 18 88 Room Air 21 07/08/18 08:03 95 07/08/18 08:00 Venturi Mask 15.0 07/08/18 08:00 98.8 99 20 122/76 (91) 94 07/08/18 07:20 86 20 96 Venturi Mask 12.0 50 07/08/18 07:08 90 18 94 Venturi Mask 12.0 50 07/08/18 07:08 Venturi Mask 12.0 50 07/08/18 07:08 94 Venturi Mask 12.0 50 07/08/18 04:00 98.7 90 20 127/84 (98) 91 07/08/18 04:00 83 07/08/18 03:36 80 20 94 Venturi Mask 12.0 50 07/08/18 03:26 79 20 90 Venturi Mask 12.0 50 07/08/18 00:00 99.8 96 19 127/88 (101) 92 07/08/18 00:00 93 07/07/18 23:37 91 20 92 Venturi Mask 12.0 50 07/07/18 23:33 Nasal Cannula 5.0 07/07/18 23:33 92 20 92 Venturi Mask 12.0 50 07/07/18 23:32 89 Nasal Cannula 3.0 07/07/18 21:22 99.3 07/07/18 21:00 Venturi Mask 15.0 07/07/18 20:00 99 07/07/18 20:00 100.2 96 25 123/80 (94) 91 07/07/18 19:00 90 24 110/65 (80) 98 07/07/18 18:00 97 24 111/60 (77) 98 07/07/18 17:00 101 24 126/68 (87) 98 07/07/18 16:00 98.7 75 25 118/62 (80) 98 18 16:00 Venturi Mask 15.0 07/07/18 16:00 18 07/07/18 16:00 80 07/07/18 15:39 106 20 95 Nasal Cannula 3.0 32 07/07/18 15:33 97 20 93 Nasal Cannula 3.0 32 07/07/18 15:00 80 20 122/66 (84) 98 Intake and Output 07/07/18 07/08/18 19:00 07:00 Intake Total 400 ml Output Total 640 ml 1650 ml Balance -240 ml -1650 ml IV Total 400 ml Output Urine Total 640 ml 1650 ml Microbiology Date/Time Source Procedure Growth Status 07/06/18 16:55 Blood Blood Culture - Preliminary NO GROWTH AFTER 24 HOURS Resulted 07/06/18 16:40 Blood Blood Culture - Preliminary NO GROWTH AFTER 24 HOURS Resulted 07/07/18 05:00 Indwelling Cath Urine Culture - Preliminary Resulted Current Medications Medications (Trade) Dose Ordered Sig/Megan Route PRN Reason Start Time Stop Time Status Last Admin Dose Admin Acetaminophen (Tylenol) 650 mg Q4H PRN ORAL FEVER (temp>100.5F) 07/07/18 20:00 07/29/18 19:59 07/07/18 20:52 Albuterol/ Ipratropium (Albuterol/ Ipratropium) 3 ml Q4HRT HHN 07/07/18 23:00 07/10/18 10:59 07/08/18 11:10 Diphenhydramine HCl (Benadryl) 25 mg Q6H PRN ORAL Itching 07/07/18 20:00 08/06/18 19:59 Furosemide (Lasix) 20 mg ONCE IV 07/08/18 14:30 07/08/18 15:30 Guaifenesin/ Dextromethorphan (Robitussin DM Syrup) 10 ml Q4H PRN ORAL For Cough 07/07/18 20:00 08/04/18 19:59 Heparin Sodium (Porcine) (Heparin 5000 units/ml) 5,000 units EVERY 12 HOURS SUBQ 07/07/18 21:00 08/03/18 11:59 07/07/18 20:40 Linezolid 300 ml @ 300 mls/hr EVERY 12 HOURS IVPB 07/07/18 21:00 07/11/18 20:59 07/08/18 10:14 Meropenem 1 gm/ Sodium Chloride 100 ml @ 200 mls/hr Q8HR IVPB 07/07/18 22:00 07/11/18 21:59 07/08/18 05:15 Ondansetron HCl (Zofran) 4 mg Q6H PRN IVP Nausea & Vomiting 07/07/18 20:00 08/06/18 19:59 Pantoprazole (Protonix) 40 mg DAILY ORAL 07/08/18 09:00 07/31/18 08:59 07/08/18 10:13 Polyethylene Glycol (Miralax) 17 gm DAILY PRN ORAL Constipation 07/07/18 20:00 08/06/18 19:59 Senna/Docusate Sodium (Elvi-Colace) 1 tab Q12H PRN ORAL Constipation 07/07/18 20:00 08/06/18 19:59 Sennosides (Senokot) 8.6 mg DAILYPRN PRN ORAL Constipation 07/07/18 20:00 08/06/18 19:59 Zolpidem Tartrate (Ambien) 5 mg HSPRN PRN ORAL Insomnia 07/07/18 20:00 07/12/18 19:59 Deandre Cunningham MD Jul 08, 2018 14:07
--- NOTE | 2018-07-08 14:59 | Infectious Diseases Prog Note ---
Assessment/Plan Assessment/Plan ASSESSMENT AND PLAN: 1. bilateral groin/thigh abscesses/wound infection/hidradenitis suppurativa, recent vaginal yeast infection, urine culture with yeast sob, fevers, pulmoary edema vs other, ? HCAP, ? sepsis, tachycardia - meropenem and zyvox - clinically better, fevers better, chest x-ray stable - monitor labs on abx and lasix - allergies - vancomycin - s/p excision and debridement - s/p wound closure - wound care per surgery - sob/pulmonary w/u - V/Q low probability 2. ARF - renal f/u, monitor creatinine, avoid nephrotoxic abx - cr improved 3. Leukocytosis - resolved. 4. Question UTI with positive urinalysis, urine culture mixed organisms - on zosyn 5. The patient currently has anemia. 6. Allergies, vancomycin. 7. Social history is negative. 8. Family history is noncontributory. 9. MAR was noted. 10. Case discussed with RN. 11. Continue treatment per primary consultants. 12. Notes and records were noted. 13. Orders were entered. Subjective Constitutional: Reports: other - much less sob; Denies: fever HEENT: Denies: congestion Respiratory: Denies: shortness of breath Cardiovascular: Denies: chest pain Gastrointestinal/Abdominal: Denies: nausea, vomiting, diarrhea Genitourinary: Reports: other - no cva pain Neurologic: Denies: headache Psychiatric: Denies: depression Skin: Denies: rash Hematologic: Denies: bleeding Musculoskeletal: Denies: pain Allergies: Coded Allergies: VANCOMYCIN (Verified Allergy, Mild, Itching, 06/29/18) Objective Vital Signs Last 24 Hour Vital Signs Date Time Temp Pulse Resp B/P (MAP) Pulse Ox O2 Delivery O2 Flow Rate FiO2 07/08/18 12:00 99.1 94 20 126/84 (98) 94 07/08/18 11:40 83 07/08/18 11:21 80 18 95 Venturi Mask 12.0 50 07/08/18 11:10 83 18 88 Room Air 21 07/08/18 08:03 95 07/08/18 08:00 Venturi Mask 15.0 07/08/18 08:00 98.8 99 20 122/76 (91) 94 07/08/18 07:20 86 20 96 Venturi Mask 12.0 50 07/08/18 07:08 90 18 94 Venturi Mask 12.0 50 07/08/18 07:08 Venturi Mask 12.0 50 07/08/18 07:08 94 Venturi Mask 12.0 50 07/08/18 04:00 98.7 90 20 127/84 (98) 91 07/08/18 04:00 83 07/08/18 03:36 80 20 94 Venturi Mask 12.0 50 07/08/18 03:26 79 20 90 Venturi Mask 12.0 50 07/08/18 00:00 99.8 96 19 127/88 (101) 92 07/08/18 00:00 93 07/07/18 23:37 91 20 92 Venturi Mask 12.0 50 07/07/18 23:33 Nasal Cannula 5.0 07/07/18 23:33 92 20 92 Venturi Mask 12.0 50 07/07/18 23:32 89 Nasal Cannula 3.0 07/07/18 21:22 99.3 07/07/18 21:00 Venturi Mask 15.0 07/07/18 20:00 99 07/07/18 20:00 100.2 96 25 123/80 (94) 91 07/07/18 19:00 90 24 110/65 (80) 98 07/07/18 18:00 97 24 111/60 (77) 98 07/07/18 17:00 101 24 126/68 (87) 98 07/07/18 16:00 98.7 75 25 118/62 (80) 98 07/07/18 16:00 Venturi Mask 15.0 07/07/18 16:00 18 07/07/18 16:00 80 07/07/18 15:39 106 20 95 Nasal Cannula 3.0 32 07/07/18 15:33 97 20 93 Nasal Cannula 3.0 32 07/07/18 15:00 80 20 122/66 (84) 98 Height (Feet): 5 Height (Inches): 8.00 Weight (Pounds): 148 General Appearance: no acute distress HEENT: normocephalic, atraumatic, anicteric, mucous membranes moist Respiratory/Chest: no accessory muscle use, crackles/rales - less, rhonchi - bilaterally - les Cardiovascular: normal rate, regular rhythm, no gallop/murmur, no JVD Abdomen: normal bowel sounds, soft, non tender, no organomegaly, non distended Genitourinary: other - no cva pain Extremities: no cyanosis Skin: no rash, other - wounds covere 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, alert, oriented x 3, responsive Lymphatic: no neck adenopathy Musculoskeletal: no effusion Objective Labs Test 06/30/18 07:00 06/30/18 17:05 07/01/18 04:10 07/01/18 05:10 White Blood Count 8.7 K/UL (4.8-10.8) 9.0 K/UL (4.8-10.8) Red Blood Count 3.92 M/UL (4.20-5.40) 3.67 M/UL (4.20-5.40) Hemoglobin 11.3 G/DL (12.0-16.0) 10.6 G/DL (12.0-16.0) Hematocrit 33.8 % (37.0-47.0) 31.1 % (37.0-47.0) Mean Corpuscular Volume 86 FL (80-99) 85 FL (80-99) Mean Corpuscular Hemoglobin 28.9 PG (27.0-31.0) 28.8 PG (27.0-31.0) Mean Corpuscular Hemoglobin Concent 33.5 G/DL (32.0-36.0) 34.0 G/DL (32.0-36.0) Red Cell Distribution Width 11.2 % (11.6-14.8) 10.8 % (11.6-14.8) Platelet Count 162 K/UL (150-450) 136 K/UL (150-450) Mean Platelet Volume 7.2 FL (6.5-10.1) 7.1 FL (6.5-10.1) Neutrophils (%) (Auto) 73.8 % (45.0-75.0) 77.6 % (45.0-75.0) Lymphocytes (%) (Auto) 16.8 % (20.0-45.0) 12.7 % (20.0-45.0) Monocytes (%) (Auto) 8.5 % (1.0-10.0) 8.9 % (1.0-10.0) Eosinophils (%) (Auto) 0.6 % (0.0-3.0) 0.5 % (0.0-3.0) Basophils (%) (Auto) 0.5 % (0.0-2.0) 0.4 % (0.0-2.0) Sodium Level 139 MMOL/L (136-145) 138 MMOL/L (136-145) Potassium Level 3.7 MMOL/L (3.5-5.1) 3.0 MMOL/L (3.5-5.1) Chloride Level 104 MMOL/L (98-107) 104 MMOL/L (98-107) Carbon Dioxide Level 27 MMOL/L (21-32) 26 MMOL/L (21-32) Anion Gap 8 mmol/L (5-15) 8 mmol/L (5-15) Blood Urea Nitrogen 12 mg/dL (7-18) 9 mg/dL (7-18) Creatinine 2.5 MG/DL (0.55-1.30) 2.3 MG/DL (0.55-1.30) Estimat Glomerular Filtration Rate 22.3 mL/min (>60) 24.6 mL/min (>60) Glucose Level 100 MG/DL (74-106) 116 MG/DL (74-106) Calcium Level 8.2 MG/DL (8.5-10.1) 8.0 MG/DL (8.5-10.1) C-Reactive Protein, Quantitative 0.7 mg/dL (0.00-0.90) Urine Random Sodium < 20 mmol/L (20-110) Urine Eosinophils None seen (NONE SEEN) Uric Acid 4.6 MG/DL (2.6-7.2) Phosphorus Level 3.6 MG/DL (2.5-4.9) Magnesium Level 1.6 MG/DL (1.8-2.4) Iron Level 50 ug/dL (50-175) Total Iron Binding Capacity 215 ug/dL (250-450) Percent Iron Saturation 23 % (15-50) Unsaturated Iron Binding 165 ug/dL (112-346) Total Bilirubin 0.3 MG/DL (0.2-1.0) Gamma Glutamyl Transpeptidase 18 U/L (5-85) Aspartate Amino Transf (AST/SGOT) 16 U/L (15-37) Alanine Aminotransferase (ALT/SGPT) 12 U/L (12-78) Alkaline Phosphatase 38 U/L (46-116) Total Protein 6.1 G/DL (6.4-8.2) Albumin 2.8 G/DL (3.4-5.0) Globulin 3.3 g/dL Albumin/Globulin Ratio 0.8 (1.0-2.7) Triglycerides Level 78 MG/DL (30-150) Cholesterol Level 131 MG/DL (< 200) LDL Cholesterol 78 mg/dL (<100) HDL Cholesterol 51 MG/DL (40-60) Cholesterol/HDL Ratio 2.6 (3.3-4.4) Vitamin B12 Level 1440 PG/ML (193-986) Folate 19.7 NG/ML (8.6-58.9) Test 07/01/18 18:20 07/02/18 04:00 07/02/18 05:25 07/02/18 14:20 Sodium Level 137 MMOL/L (136-145) 138 MMOL/L (136-145) Potassium Level 3.9 MMOL/L (3.5-5.1) 3.7 MMOL/L (3.5-5.1) Chloride Level 104 MMOL/L (98-107) 106 MMOL/L (98-107) Carbon Dioxide Level 26 MMOL/L (21-32) 27 MMOL/L (21-32) Anion Gap 7 mmol/L (5-15) 5 mmol/L (5-15) Blood Urea Nitrogen 8 mg/dL (7-18) 8 mg/dL (7-18) Creatinine 2.0 MG/DL (0.55-1.30) 2.0 MG/DL (0.55-1.30) Estimat Glomerular Filtration Rate 28.9 mL/min (>60) 28.9 mL/min (>60) Glucose Level 121 MG/DL (74-106) 129 MG/DL (74-106) Calcium Level 8.2 MG/DL (8.5-10.1) 8.0 MG/DL (8.5-10.1) Urine Eosinophils None seen (NONE SEEN) White Blood Count 8.1 K/UL (4.8-10.8) Red Blood Count 3.66 M/UL (4.20-5.40) Hemoglobin 10.4 G/DL (12.0-16.0) Hematocrit 31.1 % (37.0-47.0) Mean Corpuscular Volume 85 FL (80-99) Mean Corpuscular Hemoglobin 28.5 PG (27.0-31.0) Mean Corpuscular Hemoglobin Concent 33.5 G/DL (32.0-36.0) Red Cell Distribution Width 10.8 % (11.6-14.8) Platelet Count 145 K/UL (150-450) Mean Platelet Volume 6.7 FL (6.5-10.1) Neutrophils (%) (Auto) 78.1 % (45.0-75.0) Lymphocytes (%) (Auto) 13.2 % (20.0-45.0) Monocytes (%) (Auto) 7.3 % (1.0-10.0) Eosinophils (%) (Auto) 0.8 % (0.0-3.0) Basophils (%) (Auto) 0.5 % (0.0-2.0) Phosphorus Level 2.9 MG/DL (2.5-4.9) Magnesium Level 2.5 MG/DL (1.8-2.4) Total Bilirubin 0.5 MG/DL (0.2-1.0) Aspartate Amino Transf (AST/SGOT) 13 U/L (15-37) Alanine Aminotransferase (ALT/SGPT) 18 U/L (12-78) Alkaline Phosphatase 36 U/L (46-116) C-Reactive Protein, Quantitative 0.5 mg/dL (0.00-0.90) Total Protein 6.3 G/DL (6.4-8.2) Albumin 3.1 G/DL (3.4-5.0) Globulin 3.2 g/dL Albumin/Globulin Ratio 1.0 (1.0-2.7) Urine Color Pale yellow Urine Appearance Slightly cloudy Urine pH 5 (4.5-8.0) Urine Specific [place] 1.010 (1.005-1.035) Urine Protein 2+ (NEGATIVE) Urine Glucose (UA) Negative (NEGATIVE) Urine Ketones Negative (NEGATIVE) Urine Blood 3+ (NEGATIVE) Urine Nitrite Negative (NEGATIVE) Urine Bilirubin Negative (NEGATIVE) Urine Urobilinogen Normal MG/DL (0.0-1.0) Urine Leukocyte Esterase 3+ (NEGATIVE) Urine RBC 5-10 /HPF (0 - 2) Urine WBC 15-20 /HPF (0 - 2) Urine Squamous Epithelial Cells Occasional /LPF Urine Bacteria Occasional /HPF (NONE) Urine Yeast Many /HPF (NONE) Urine Random Sodium < 20 mmol/L (20-110) Chest x-ray - nad, report noted Microbiology Date/Time Source Procedure Growth Status 07/06/18 16:55 Blood Blood Culture - Preliminary NO GROWTH AFTER 24 HOURS Resulted 07/06/18 16:40 Blood Blood Culture - Preliminary NO GROWTH AFTER 24 HOURS Resulted 07/07/18 05:00 Indwelling Cath Urine Culture - Preliminary Resulted Labs Test 07/05/18 19:23 07/06/18 04:40 07/06/18 15:35 07/06/18 16:55 Arterial Blood pH 7.470 (7.350-7.450) Arterial Blood Partial Pressure CO2 32.5 mmHg (35.0-45.0) Arterial Blood Partial Pressure O2 67.6 mmHg (75.0-100.0) Arterial Blood HCO3 23.1 mmol/L (22.0-26.0) Arterial Blood Oxygen Saturation 93.4 % (95-100) Arterial Blood Base Excess -0.1 (-2-2) Jordon Test Positive White Blood Count 9.3 K/UL (4.8-10.8) 10.6 K/UL (4.8-10.8) Red Blood Count 3.01 M/UL (4.20-5.40) 3.29 M/UL (4.20-5.40) Hemoglobin 9.1 G/DL (12.0-16.0) 9.8 G/DL (12.0-16.0) Hematocrit 26.5 % (37.0-47.0) 28.7 % (37.0-47.0) Mean Corpuscular Volume 88 FL (80-99) 87 FL (80-99) Mean Corpuscular Hemoglobin 30.1 PG (27.0-31.0) 29.8 PG (27.0-31.0) Mean Corpuscular Hemoglobin Concent 34.2 G/DL (32.0-36.0) 34.1 G/DL (32.0-36.0) Red Cell Distribution Width 10.9 % (11.6-14.8) 10.9 % (11.6-14.8) Platelet Count 141 K/UL (150-450) 188 K/UL (150-450) Mean Platelet Volume 6.5 FL (6.5-10.1) 6.4 FL (6.5-10.1) Neutrophils (%) (Auto) 80.7 % (45.0-75.0) 87.6 % (45.0-75.0) Lymphocytes (%) (Auto) 10.7 % (20.0-45.0) 7.0 % (20.0-45.0) Monocytes (%) (Auto) 7.4 % (1.0-10.0) 5.0 % (1.0-10.0) Eosinophils (%) (Auto) 0.7 % (0.0-3.0) 0.1 % (0.0-3.0) Basophils (%) (Auto) 0.5 % (0.0-2.0) 0.2 % (0.0-2.0) Sodium Level 136 MMOL/L (136-145) 136 MMOL/L (136-145) Potassium Level 4.0 MMOL/L (3.5-5.1) 3.8 MMOL/L (3.5-5.1) Chloride Level 103 MMOL/L (98-107) 100 MMOL/L (98-107) Carbon Dioxide Level 25 MMOL/L (21-32) 25 MMOL/L (21-32) Anion Gap 8 mmol/L (5-15) 11 mmol/L (5-15) Blood Urea Nitrogen 5 mg/dL (7-18) 5 mg/dL (7-18) Creatinine 1.3 MG/DL (0.55-1.30) 1.4 MG/DL (0.55-1.30) Estimat Glomerular Filtration Rate 47.5 mL/min (>60) 43.6 mL/min (>60) Glucose Level 93 MG/DL (74-106) 123 MG/DL (74-106) Uric Acid 2.1 MG/DL (2.6-7.2) Calcium Level 8.0 MG/DL (8.5-10.1) 8.0 MG/DL (8.5-10.1) Phosphorus Level 3.6 MG/DL (2.5-4.9) Magnesium Level 1.4 MG/DL (1.8-2.4) Total Bilirubin 0.3 MG/DL (0.2-1.0) Aspartate Amino Transf (AST/SGOT) 26 U/L (15-37) Alanine Aminotransferase (ALT/SGPT) 29 U/L (12-78) Alkaline Phosphatase 44 U/L (46-116) Pro-B-Type Natriuretic Peptide 1317 pg/mL (0-125) Total Protein 6.2 G/DL (6.4-8.2) Albumin 2.4 G/DL (3.4-5.0) Globulin 3.8 g/dL Albumin/Globulin Ratio 0.6 (1.0-2.7) Lactic Acid Level 2.20 mmol/L (0.4-2.0) Test 07/06/18 20:05 07/07/18 04:30 07/07/18 05:00 Lactic Acid Level 1.90 mmol/L (0.66-2.22) White Blood Count 7.4 K/UL (4.8-10.8) Red Blood Count 3.05 M/UL (4.20-5.40) Hemoglobin 9.2 G/DL (12.0-16.0) Hematocrit 26.6 % (37.0-47.0) Mean Corpuscular Volume 87 FL (80-99) Mean Corpuscular Hemoglobin 30.1 PG (27.0-31.0) Mean Corpuscular Hemoglobin Concent 34.4 G/DL (32.0-36.0) Red Cell Distribution Width 10.6 % (11.6-14.8) Platelet Count 169 K/UL (150-450) Mean Platelet Volume 6.4 FL (6.5-10.1) Neutrophils (%) (Auto) 77.0 % (45.0-75.0) Lymphocytes (%) (Auto) 12.6 % (20.0-45.0) Monocytes (%) (Auto) 9.0 % (1.0-10.0) Eosinophils (%) (Auto) 0.6 % (0.0-3.0) Basophils (%) (Auto) 0.8 % (0.0-2.0) Sodium Level 138 MMOL/L (136-145) Potassium Level 3.4 MMOL/L (3.5-5.1) Chloride Level 103 MMOL/L (98-107) Carbon Dioxide Level 29 MMOL/L (21-32) Anion Gap 6 mmol/L (5-15) Blood Urea Nitrogen 6 mg/dL (7-18) Creatinine 1.3 MG/DL (0.55-1.30) Estimat Glomerular Filtration Rate 47.5 mL/min (>60) Glucose Level 101 MG/DL (74-106) Uric Acid 2.7 MG/DL (2.6-7.2) Calcium Level 8.2 MG/DL (8.5-10.1) Phosphorus Level 3.8 MG/DL (2.5-4.9) Magnesium Level 1.8 MG/DL (1.8-2.4) Total Bilirubin 0.2 MG/DL (0.2-1.0) Aspartate Amino Transf (AST/SGOT) 22 U/L (15-37) Alanine Aminotransferase (ALT/SGPT) 30 U/L (12-78) Alkaline Phosphatase 47 U/L (46-116) C-Reactive Protein, Quantitative 24.7 mg/dL (0.00-0.90) Pro-B-Type Natriuretic Peptide 938 pg/mL (0-125) Total Protein 6.5 G/DL (6.4-8.2) Albumin 2.3 G/DL (3.4-5.0) Globulin 4.2 g/dL Albumin/Globulin Ratio 0.5 (1.0-2.7) Urine Color Pale yellow Urine Appearance Clear Urine pH 7 (4.5-8.0) Urine Specific [place] 1.020 (1.005-1.035) Urine Protein 1+ (NEGATIVE) Urine Glucose (UA) Negative (NEGATIVE) Urine Ketones Negative (NEGATIVE) Urine Blood 2+ (NEGATIVE) Urine Nitrite Negative (NEGATIVE) Urine Bilirubin Negative (NEGATIVE) Urine Urobilinogen Normal MG/DL (0.0-1.0) Urine Leukocyte Esterase 1+ (NEGATIVE) Urine RBC 2-4 /HPF (0 - 2) Urine WBC 5-10 /HPF (0 - 2) Urine Squamous Epithelial Cells Few /LPF (NONE/OCC) Urine Bacteria Few /HPF (NONE) Current Medications Medications (Trade) Dose Ordered Sig/Megan Route PRN Reason Start Time Stop Time Status Last Admin Dose Admin Acetaminophen (Tylenol) 650 mg Q4H PRN ORAL FEVER (temp>100.5F) 07/07/18 20:00 07/29/18 19:59 07/07/18 20:52 Albuterol/ Ipratropium (Albuterol/ Ipratropium) 3 ml Q4HRT HHN 07/07/18 23:00 07/10/18 10:59 07/08/18 11:10 Diphenhydramine HCl (Benadryl) 25 mg Q6H PRN ORAL Itching 07/07/18 20:00 08/06/18 19:59 Furosemide (Lasix) 20 mg ONCE IV 07/08/18 14:30 07/08/18 15:30 07/08/18 14:48 Guaifenesin/ Dextromethorphan (Robitussin DM Syrup) 10 ml Q4H PRN ORAL For Cough 07/07/18 20:00 08/04/18 19:59 Heparin Sodium (Porcine) (Heparin 5000 units/ml) 5,000 units EVERY 12 HOURS SUBQ 07/07/18 21:00 08/03/18 11:59 07/07/18 20:40 Linezolid 300 ml @ 300 mls/hr EVERY 12 HOURS IVPB 07/07/18 21:00 07/11/18 20:59 07/08/18 10:14 Meropenem 1 gm/ Sodium Chloride 100 ml @ 200 mls/hr Q8HR IVPB 07/07/18 22:00 07/11/18 21:59 07/08/18 14:48 Ondansetron HCl (Zofran) 4 mg Q6H PRN IVP Nausea & Vomiting 07/07/18 20:00 08/06/18 19:59 Pantoprazole (Protonix) 40 mg DAILY ORAL 07/08/18 09:00 07/31/18 08:59 07/08/18 10:13 Polyethylene Glycol (Miralax) 17 gm DAILY PRN ORAL Constipation 07/07/18 20:00 08/06/18 19:59 Senna/Docusate Sodium (Elvi-Colace) 1 tab Q12H PRN ORAL Constipation 07/07/18 20:00 08/06/18 19:59 Sennosides (Senokot) 8.6 mg DAILYPRN PRN ORAL Constipation 07/07/18 20:00 08/06/18 19:59 Zolpidem Tartrate (Ambien) 5 mg HSPRN PRN ORAL Insomnia 07/07/18 20:00 07/12/18 19:59 Joseph Brooks MD Jul 08, 2018 14:59
[2018-07-08 16:00] VITALS: BP 127/82
[2018-07-08] MEDS ORDERED: Docusate Sod/Senna tab ORAL PRN (16:12)
[2018-07-08] MEDS ORDERED: Sennosides 8.6mg tab ORAL PRN (16:13)
[2018-07-08] MEDS ORDERED: Guaifenesin/DM 10ml syrup ORAL PRN (16:13)
[2018-07-08] MEDS ORDERED: Miralax 17gm pkt ORAL PRN (16:13)
--- NOTE | 2018-07-08 17:28 | Nephrology Progress Note ---
Assessment/Plan Problem List: (1) Acute renal failure Assessment: Cr wnl (2) UTI (urinary tract infection) (3) Hidradenitis suppurativa (4) Cellulitis (5) Hypoxia Assessment off O2 , the puls Ox drops ! acute renal failure Cr wnl Hypotension Pain Cellulitis Abcess / Hidradenitis suppurativea UTI Plan Dc cohen if Ok with surgeon K and Mag , phos supplement as needed stool softner per pulmonary no IV fluids Urine studies Avoid Nephrotoxics Monitor renal parameters Antibiotics per ID CXR bilat lower process Bilateral basilar infiltrates versus edema, and bilateral pleural effusions, developing since 06/28/2018 Subjective ROS Limited/Unobtainable: No Objective Objective Last 24 Hour Vital Signs Date Time Temp Pulse Resp B/P (MAP) Pulse Ox O2 Delivery O2 Flow Rate FiO2 07/08/18 16:00 99.2 91 20 127/82 (97) 91 07/08/18 15:41 81 18 99 Nasal Cannula 3.0 32 07/08/18 15:32 82 18 90 Room Air 21 07/08/18 12:00 99.1 94 20 126/84 (98) 94 07/08/18 11:40 83 07/08/18 11:21 80 18 95 Venturi Mask 12.0 50 07/08/18 11:10 83 18 88 Room Air 21 07/08/18 08:03 95 07/08/18 08:00 Venturi Mask 15.0 07/08/18 08:00 98.8 99 20 122/76 (91) 94 07/08/18 07:20 86 20 96 Venturi Mask 12.0 50 07/08/18 07:08 90 18 94 Venturi Mask 12.0 50 07/08/18 07:08 Venturi Mask 12.0 50 07/08/18 07:08 94 Venturi Mask 12.0 50 07/08/18 04:00 98.7 90 20 127/84 (98) 91 07/08/18 04:00 83 07/08/18 03:36 80 20 94 Venturi Mask 12.0 50 07/08/18 03:26 79 20 90 Venturi Mask 12.0 50 07/08/18 00:00 99.8 96 19 127/88 (101) 92 07/08/18 00:00 93 07/07/18 23:37 91 20 92 Venturi Mask 12.0 50 07/07/18 23:33 Nasal Cannula 5.0 07/07/18 23:33 92 20 92 Venturi Mask 12.0 50 07/07/18 23:32 89 Nasal Cannula 3.0 07/07/18 21:22 99.3 07/07/18 21:00 Venturi Mask 15.0 07/07/18 20:00 99 07/07/18 20:00 100.2 96 25 123/80 (94) 91 07/07/18 19:00 90 24 110/65 (80) 98 07/07/18 18:00 97 24 111/60 (77) 98 Intake and Output 07/07/18 07/08/18 19:00 07:00 Intake Total 400 ml Output Total 640 ml 1650 ml Balance -240 ml -1650 ml IV Total 400 ml Output Urine Total 640 ml 1650 ml Height (Feet): 5 Height (Inches): 8.00 Weight (Pounds): 148 General Appearance: no apparent distress Objective no change Ilan Nelson MD Jul 08, 2018 17:28
[2018-07-08 20:00] VITALS: BP 118/75
[2018-07-08] MEDS ORDERED: Zolpidem 5mg tab ORAL PRN (20:00)
[2018-07-09] VITALS: BP 115/73
[2018-07-09] MEDS: Albuterol/Ipratropium 3ml neb HHN SCH ×4 (03:03→15:00)
[2018-07-09 04:00] VITALS: BP 121/76
[2018-07-09 07:28] LABS: BASOPHILS % (AUTO) 1.6 % (0.0-2.0); EOSINOPHILS % (AUTO) 3.9 % (0.0-3.0); HEMOGLOBIN 9.1 G/DL (12.0-16.0); LYMPHOCYTES % (AUTO) 22.4 % (20.0-45.0); MEAN CORPUSCULAR VOLUME 87 FL (80-99); MONOCYTES % (AUTO) 9.4 % (1.0-10.0); NEUTROPHILS % (AUTO) 62.7 % (45.0-75.0); PLATELET COUNT 229 K/UL (150-450); RED BLOOD COUNT 3.09 M/UL (4.20-5.40); RED CELL DISTRIBUTION WIDTH 10.8 % (11.6-14.8); WHITE BLOOD COUNT 5.7 K/UL (4.8-10.8)
[2018-07-09 07:42] LABS: ANION GAP 10 mmol/L (5-15); BLOOD UREA NITROGEN 8 mg/dL (7-18); CALCIUM 8.7 MG/DL (8.5-10.1); CARBON DIOXIDE 27 MMOL/L (21-32); CHLORIDE 102 MMOL/L (98-107); CREATININE 1.2 MG/DL (0.55-1.30); POTASSIUM 3.4 MMOL/L (3.5-5.1); SODIUM 139 MMOL/L (136-145)
[2018-07-09 08:00] VITALS: BP 136/76
[2018-07-09 08:35] LABS: ALANINE AMINOTRANSFERASE 42 U/L (12-78); ALBUMIN 2.5 G/DL (3.4-5.0); ALKALINE PHOSPHATASE 40 U/L (46-116); ASPARTATE AMINO TRANSFERASE 35 U/L (15-37); BILIRUBIN,DIRECT < 0.1 MG/DL (0.0-0.3); BILIRUBIN,TOTAL 0.1 MG/DL (0.2-1.0); PHOSPHORUS 3.8 MG/DL (2.5-4.9)
[2018-07-09] MEDS: Heparin 5000 units/ml inj SUBQ SCH (08:44)
--- NOTE | 2018-07-09 09:25 | General Progress Note ---
Progress Note Progress Note Pt seen and examined. Wounds are looking great. O2 Sats a bit low. 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 Davina Laureano Md, MD Jul 09, 2018 09:24
[2018-07-09] MEDS ORDERED: SENNA8.6 M2 PO (09:47)
[2018-07-09] MEDS ORDERED: DOXYCYCLINE MO100 MG ORAL (09:47)
--- NOTE | 2018-07-09 09:57 | Discharge Summary ---
Discharge Summary Hospital Course Date of Admission Jun 28, 2018 at 12:28 Date of Discharge jul 09 Admitting Diagnosis hidradenitis HPI Mallory Wells is a 33 year old female who was admitted on Jun 28, 2018 at 12: 28 for Hidradenitis 33 yo female with no sig pmh presents with complaints of worsening abscesses in her inguinal region bilaterally. Patient states she has had these abscesses for months, has not been improving with antibiotics that she has been prescribed in the past. Dr. torrez was consulted and evaluated patient, took patient for excision. patient had complicated course due to ATN from antibiotics along with allergic reaction to vanco. Patient's abx were switched to meropenem and zyvox per ID recs. patient improved and renal function improved, nephrology also consulted and also rec patient to receive aggressive hydration as patient started to become nauseated and had active nonblood vomiting. Patient improved with symptomatic management and increased bowel care. the day after wound closure patient became short of breath that was worsening, cxr showed pulm edema, fluids were stopped, patient was placed on venturi mask and sent to the ICU for closer monitoring as patient was desating to 79%. patient was diuresed gently as renal function was starting to improved. Today patient breathing much better, I had patient sit up and walk with pulse ox on, sating 90% and above. lungs sound clear. Repeat cxr done, read at bedside, much improved pulm edema. drains removed per lore patient improved as expected and feeling much better today patient to be dc'd with po abx and pain medications along with wound care. f/u with pcp and Dr. torrez outpt as discussed. 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, no motor/sensory deficits, alert, oriented x 3, responsive, normal mood/affect Skin: normal pigmentation, warm/dry Hospital Course #Acute Hypoxic Respiratory Failure resolved due to pulm edema from fluid overload state improved with diuresis #Abscess #Cellulitis #Hidradenitis Suppurative #Pain s/p excision 06/29/18, s/p Closure cont abx per ID recs continue excellent post op care pain control , will dc with PO abx #allergic reaction to vancomycin vanco stopped, abx per ID #ATN due to abx vs vanco allergic reaction Cr improving monitor closely cautious with diuresis avoid nephrotoxins #Constipation feeling better having BMs denies nausea/vomiting #UTI diflucan given for yeast infection ppx: scd diet: regular Agustin Heredia [facility] will required an estimated 3-5 midnights stay due to antibiotic management along with procedures required by plastic surgery. I spent over 39 minutes on this patient's case and discharge disposition, and counseling and/or care coordination. I have reviewed all labs, imaging, and medications and have discussed findings with patient Discharge Condition Upon Discharge: stable Discharge Disposition Patient was discharged to home Agustin Heredia MD Jul 09, 2018 09:57
--- NOTE | 2018-07-09 10:08 | Diagnostic Imaging Report ---
EXAM: XR Chest, 1 View CLINICAL HISTORY: Shortness of breath TECHNIQUE: Frontal view of the chest. COMPARISON: Chest x-rays dated 07/08/18 FINDINGS: Lungs: Diffuse bilateral patchy interstitial and alveolar opacities, with mildly improved aeration compared to the prior exam. Pleural space: Unremarkable. The costophrenic angles are sharp. No visible pneumothorax. Heart: Unremarkable. No cardiomegaly. Mediastinum: Unremarkable. Bones/joints: Unremarkable. IMPRESSION: Diffuse bilateral patchy interstitial and alveolar opacities, mildly improved compared to the prior exam.
[2018-07-09 12:00] VITALS: BP 132/85
--- NOTE | 2018-07-09 14:15 | Nephrology Progress Note ---
Assessment/Plan Problem List: (1) Acute renal failure Assessment: Cr wnl (2) UTI (urinary tract infection) (3) Hidradenitis suppurativa (4) Cellulitis (5) Hypoxia Assessment off O2 , the puls Ox drops ! acute renal failure Cr wnl Hypotension Pain Cellulitis Abcess / Hidradenitis suppurativea UTI Plan STABLE- Ok to DC ? K and Mag , phos supplement as needed stool softner per pulmonary no IV fluids Urine studies Avoid Nephrotoxics Monitor renal parameters Antibiotics per ID Will Sign off- Reconsult PRN CXR bilat lower process Bilateral basilar infiltrates versus edema, and bilateral pleural effusions, developing since 06/28/2018 Subjective ROS Limited/Unobtainable: No Objective Objective Last 24 Hour Vital Signs Date Time Temp Pulse Resp B/P (MAP) Pulse Ox O2 Delivery O2 Flow Rate FiO2 07/09/18 12:00 97.7 70 18 132/85 (101) 93 07/09/18 11:56 84 18 98 Room Air 21 07/09/18 11:49 79 18 98 Room Air 21 07/09/18 08:16 Nasal Cannula 3.0 07/09/18 08:00 98.3 76 18 136/76 (96) 94 07/09/18 08:00 86 18 97 Nasal Cannula 3.0 32 07/09/18 07:53 80 18 97 Nasal Cannula 3.0 32 07/09/18 07:53 Nasal Cannula 3.0 32 07/09/18 07:53 97 Nasal Cannula 3.0 32 07/09/18 04:00 98.3 83 18 121/76 (91) 89 07/09/18 03:16 87 18 99 Nasal Cannula 3.0 32 07/09/18 03:03 81 18 93 Nasal Cannula 3.0 32 07/09/18 00:00 99.1 101 18 115/73 (87) 90 07/08/18 23:14 84 18 98 Nasal Cannula 3.0 32 07/08/18 23:05 92 18 93 Nasal Cannula 3.0 32 07/08/18 21:00 Nasal Cannula 3.0 07/08/18 20:00 99.2 109 18 118/75 (89) 90 07/08/18 19:43 88 18 99 Nasal Cannula 3.0 32 07/08/18 19:35 Nasal Cannula 3.0 32 07/08/18 19:34 95 Nasal Cannula 3.0 32 07/08/18 19:34 87 18 96 Nasal Cannula 3.0 32 07/08/18 16:00 99.2 91 20 127/82 (97) 91 07/08/18 15:41 81 18 99 Nasal Cannula 3.0 32 07/08/18 15:32 82 18 90 Room Air 21 Intake and Output 07/08/18 07/09/18 19:00 07:00 Output Total 1853 ml Balance -1853 ml Output Urine Total 1850 ml Drainage Total 3 ml Laboratory Tests 07/09/18 05:47: White Blood Count 5.7, Red Blood Count 3.09L, Hemoglobin 9.1L, Hematocrit 27.0L , Mean Corpuscular Volume 87, Mean Corpuscular Hemoglobin 29.4, Mean Corpuscular Hemoglobin Concent 33.7, Red Cell Distribution Width 10.8L, Platelet Count 229, Mean Platelet Volume 4.9L, Neutrophils (%) (Auto) 62.7, Lymphocytes (%) (Auto) 22.4, Monocytes (%) (Auto) 9.4, Eosinophils (%) (Auto) 3.9H, Basophils (%) (Auto) 1.6, Sodium Level 139, Potassium Level 3.4L, Chloride Level 102, Carbon Dioxide Level 27, Anion Gap 10, Blood Urea Nitrogen 8 , Creatinine 1.2, Estimat Glomerular Filtration Rate 52.1, Glucose Level 94, Calcium Level 8.7, Phosphorus Level 3.8, Magnesium Level 1.7L, Total Bilirubin 0.1L, Direct Bilirubin < 0.1, Aspartate Amino Transf (AST/SGOT) 35, Alanine Aminotransferase (ALT/SGPT) 42, Alkaline Phosphatase 40L, Total Protein 5.7L, Albumin 2.5L Height (Feet): 5 Height (Inches): 8.00 Weight (Pounds): 148 General Appearance: no apparent distress Cardiovascular: normal rate Respiratory/Chest: lungs clear Abdomen: soft Objective no change Ilan Nelson MD Jul 09, 2018 14:15
--- NOTE | 2018-07-09 14:26 | Pulmonology Progress Note ---
Assessment/Plan Problems: (1) Hypoxia Assessment & Plan: Post-op hypoxemia, likely 2/2 atx +/- PNA, neg duplex and LP VQ, clinically improved and off o2 (2) Hidradenitis suppurativa Assessment/Plan Optimize pulmonary hygiene/mobilize as tolerated PRN O2 HHN's IS Abx per ID Surgery recs Stable for D/C from a pulmonary standpoint, can F/U with me on wednesday or earlier PRN Repeat CXR next week Subjective Allergies: Coded Allergies: VANCOMYCIN (Verified Allergy, Mild, Itching, 06/29/18) Subjective AFVSS, on RA, SaO2 better Less SOB, no cough, no wheezing, no F/C Feels markedly improved and being discharged Objective Last 24 Hour Vital Signs Date Time Temp Pulse Resp B/P (MAP) Pulse Ox O2 Delivery O2 Flow Rate FiO2 07/09/18 12:00 97.7 70 18 132/85 (101) 93 07/09/18 11:56 84 18 98 Room Air 21 07/09/18 11:49 79 18 98 Room Air 21 07/09/18 08:16 Nasal Cannula 3.0 07/09/18 08:00 98.3 76 18 136/76 (96) 94 07/09/18 08:00 86 18 97 Nasal Cannula 3.0 32 07/09/18 07:53 80 18 97 Nasal Cannula 3.0 32 07/09/18 07:53 Nasal Cannula 3.0 32 07/09/18 07:53 97 Nasal Cannula 3.0 32 07/09/18 04:00 98.3 83 18 121/76 (91) 89 07/09/18 03:16 87 18 99 Nasal Cannula 3.0 32 07/09/18 03:03 81 18 93 Nasal Cannula 3.0 32 07/09/18 00:00 99.1 101 18 115/73 (87) 90 07/08/18 23:14 84 18 98 Nasal Cannula 3.0 32 07/08/18 23:05 92 18 93 Nasal Cannula 3.0 32 07/08/18 21:00 Nasal Cannula 3.0 07/08/18 20:00 99.2 109 18 118/75 (89) 90 07/08/18 19:43 88 18 99 Nasal Cannula 3.0 32 07/08/18 19:35 Nasal Cannula 3.0 32 07/08/18 19:34 95 Nasal Cannula 3.0 32 07/08/18 19:34 87 18 96 Nasal Cannula 3.0 32 07/08/18 16:00 99.2 91 20 127/82 (97) 91 07/08/18 15:41 81 18 99 Nasal Cannula 3.0 32 07/08/18 15:32 82 18 90 Room Air 21 Intake and Output 07/08/18 07/09/18 19:00 07:00 Output Total 1853 ml Balance -1853 ml Output Urine Total 1850 ml Drainage Total 3 ml General Appearance: WD/WN, no acute distress HEENT: normocephalic, atraumatic, anicteric, mucous membranes moist Respiratory/Chest: chest wall non-tender, lungs clear, normal breath sounds, no respiratory distress, no accessory muscle use Cardiovascular: normal peripheral pulses, normal rate, regular rhythm Abdomen: normal bowel sounds, soft, non tender, no organomegaly, non distended , no mass Extremities: no cyanosis, no clubbing, no edema Microbiology Date/Time Source Procedure Growth Status 07/06/18 16:55 Blood Blood Culture - Preliminary NO GROWTH AFTER 48 HOURS Resulted 07/06/18 16:40 Blood Blood Culture - Preliminary NO GROWTH AFTER 48 HOURS Resulted 07/07/18 05:00 Indwelling Cath Urine Culture - Preliminary Yeast Species Resulted Laboratory Tests 07/09/18 05:47: White Blood Count 5.7, Red Blood Count 3.09L, Hemoglobin 9.1L, Hematocrit 27.0L , Mean Corpuscular Volume 87, Mean Corpuscular Hemoglobin 29.4, Mean Corpuscular Hemoglobin Concent 33.7, Red Cell Distribution Width 10.8L, Platelet Count 229, Mean Platelet Volume 4.9L, Neutrophils (%) (Auto) 62.7, Lymphocytes (%) (Auto) 22.4, Monocytes (%) (Auto) 9.4, Eosinophils (%) (Auto) 3.9H, Basophils (%) (Auto) 1.6, Sodium Level 139, Potassium Level 3.4L, Chloride Level 102, Carbon Dioxide Level 27, Anion Gap 10, Blood Urea Nitrogen 8 , Creatinine 1.2, Estimat Glomerular Filtration Rate 52.1, Glucose Level 94, Calcium Level 8.7, Phosphorus Level 3.8, Magnesium Level 1.7L, Total Bilirubin 0.1L, Direct Bilirubin < 0.1, Aspartate Amino Transf (AST/SGOT) 35, Alanine Aminotransferase (ALT/SGPT) 42, Alkaline Phosphatase 40L, Total Protein 5.7L, Albumin 2.5L Current Medications Medications (Trade) Dose Ordered Sig/Megan Route PRN Reason Start Time Stop Time Status Last Admin Dose Admin Acetaminophen (Tylenol) 650 mg Q4H PRN ORAL FEVER (temp>100.5F) 07/08/18 16:12 07/29/18 16:11 Albuterol/ Ipratropium (Albuterol/ Ipratropium) 3 ml Q4HRT HHN 07/08/18 19:00 07/10/18 10:59 07/09/18 11:48 Diphenhydramine HCl (Benadryl) 25 mg Q6H PRN ORAL Itching 07/08/18 16:12 08/06/18 16:11 Guaifenesin/ Dextromethorphan (Robitussin DM Syrup) 10 ml Q4H PRN ORAL For Cough 07/08/18 16:13 08/04/18 16:12 Heparin Sodium (Porcine) (Heparin 5000 units/ml) 5,000 units EVERY 12 HOURS SUBQ 07/08/18 21:00 08/03/18 11:59 07/09/18 08:44 Linezolid (Zyvox) 600 mg Q12HR ORAL 07/08/18 21:00 07/11/18 20:59 07/09/18 08:45 Magnesium Sulfate 100 ml @ 100 mls/hr Q1H IVPB 07/09/18 11:30 07/09/18 15:29 07/09/18 13:22 Meropenem 1 gm/ Sodium Chloride 100 ml @ 200 mls/hr Q8HR IVPB 07/08/18 22:00 07/11/18 21:59 07/09/18 06:05 Ondansetron HCl (Zofran) 4 mg Q6H PRN IVP Nausea & Vomiting 07/08/18 16:13 08/06/18 16:12 07/08/18 19:51 Pantoprazole (Protonix) 40 mg DAILY ORAL 07/09/18 09:00 07/31/18 08:59 07/09/18 08:40 Polyethylene Glycol (Miralax) 17 gm DAILY PRN ORAL Constipation 07/08/18 16:13 08/07/18 16:12 Senna/Docusate Sodium (Elvi-Colace) 1 tab Q12H PRN ORAL Constipation 07/08/18 16:12 08/06/18 16:11 Sennosides (Senokot) 8.6 mg DAILYPRN PRN ORAL Constipation 07/08/18 16:13 08/06/18 16:12 Zolpidem Tartrate (Ambien) 5 mg HSPRN PRN ORAL Insomnia 07/08/18 20:00 07/12/18 19:59 Brett Carbone MD Jul 09, 2018 14:26
[2018-07-09] MEDS ORDERED: NORCO 5-325 TA1 EACH ORAL (14:27)
--- NOTE | 2018-07-09 15:26 | General Progress Note ---
Assessment/Plan Status: stable Assessment/Plan # Anemia of chronic disease -- hgb currently trending in the 10-11 range, has been stable --> anemia panel has been reviewed and c/w acd, ferritin >100 --> hgb goal is >7, transfuse as required --> no evidence of hemolysis --> okay to follow now is s/p surgery, unlikely major drop # Leukocytosis - with a history of abscess --> Improved/Resolved --> trend smear, eval for blasts, and none were noted --> appreciate id recs # Bilateral groin/thigh abscesses/wound infection/hidradenitis suppurativa --> has received surgery for 06/29 and will repeat surgery for closure 07/03 --> completed abx as per ID --> appreciate their recs # LIANA given ivf and currently improved --> trend cr as per nephro # DVT ppx with scds, consider heparin sq after surgery Greatly appreciate consultation! Subjective Date patient seen: Jul 09, 2018 Hematologic/Lymphatic: Reports: anemia Allergies: Coded Allergies: VANCOMYCIN (Verified Allergy, Mild, Itching, 06/29/18) All Systems: reviewed and negative except above Subjective Pt awake and alert. CXR today shows mild improvement. H/H stable. Objective Last 24 Hour Vital Signs Date Time Temp Pulse Resp B/P (MAP) Pulse Ox O2 Delivery O2 Flow Rate FiO2 07/09/18 12:00 97.7 70 18 132/85 (101) 93 07/09/18 11:56 84 18 98 Room Air 21 07/09/18 11:49 79 18 98 Room Air 21 07/09/18 08:16 Nasal Cannula 3.0 07/09/18 08:00 98.3 76 18 136/76 (96) 94 07/09/18 08:00 86 18 97 Nasal Cannula 3.0 32 07/09/18 07:53 80 18 97 Nasal Cannula 3.0 32 07/09/18 07:53 Nasal Cannula 3.0 32 07/09/18 07:53 97 Nasal Cannula 3.0 32 07/09/18 04:00 98.3 83 18 121/76 (91) 89 07/09/18 03:16 87 18 99 Nasal Cannula 3.0 32 07/09/18 03:03 81 18 93 Nasal Cannula 3.0 32 07/09/18 00:00 99.1 101 18 115/73 (87) 90 07/08/18 23:14 84 18 98 Nasal Cannula 3.0 32 07/08/18 23:05 92 18 93 Nasal Cannula 3.0 32 07/08/18 21:00 Nasal Cannula 3.0 07/08/18 20:00 99.2 109 18 118/75 (89) 90 07/08/18 19:43 88 18 99 Nasal Cannula 3.0 32 07/08/18 19:35 Nasal Cannula 3.0 32 07/08/18 19:34 95 Nasal Cannula 3.0 32 07/08/18 19:34 87 18 96 Nasal Cannula 3.0 32 07/08/18 16:00 99.2 91 20 127/82 (97) 91 07/08/18 15:41 81 18 99 Nasal Cannula 3.0 32 07/08/18 15:32 82 18 90 Room Air 21 Intake and Output 07/08/18 07/09/18 19:00 07:00 Output Total 1853 ml Balance -1853 ml Output Urine Total 1850 ml Drainage Total 3 ml Laboratory Tests 07/09/18 05:47: White Blood Count 5.7, Red Blood Count 3.09L, Hemoglobin 9.1L, Hematocrit 27.0L , Mean Corpuscular Volume 87, Mean Corpuscular Hemoglobin 29.4, Mean Corpuscular Hemoglobin Concent 33.7, Red Cell Distribution Width 10.8L, Platelet Count 229, Mean Platelet Volume 4.9L, Neutrophils (%) (Auto) 62.7, Lymphocytes (%) (Auto) 22.4, Monocytes (%) (Auto) 9.4, Eosinophils (%) (Auto) 3.9H, Basophils (%) (Auto) 1.6, Sodium Level 139, Potassium Level 3.4L, Chloride Level 102, Carbon Dioxide Level 27, Anion Gap 10, Blood Urea Nitrogen 8 , Creatinine 1.2, Estimat Glomerular Filtration Rate 52.1, Glucose Level 94, Calcium Level 8.7, Phosphorus Level 3.8, Magnesium Level 1.7L, Total Bilirubin 0.1L, Direct Bilirubin < 0.1, Aspartate Amino Transf (AST/SGOT) 35, Alanine Aminotransferase (ALT/SGPT) 42, Alkaline Phosphatase 40L, Total Protein 5.7L, Albumin 2.5L Height (Feet): 5 Height (Inches): 8.00 Weight (Pounds): 148 Objective b/l groin rash/erythematous s/p surgery Bonifacio Dhillon MD Jul 09, 2018 15:26
[2018-07-09] MEDS ORDERED: NS 275ml ONE (16:11)
--- NOTE | 2018-07-13 12:51 | Diagnostic Imaging Report ---
APPROVED REPORT CPT Code: 81284 Present Symptoms Shortness of breath Comments: Post Op Abnormal Lab Hx of Hidradenitis, Post op groin area dressings (Bilateral common femoral and proximal superficial femoral veins) BILATERAL: Imaging reveals a patent deep venous system bilaterally. There is no evidence of thrombus within the iliac, mid to distal femoral, popliteal or tibial segments. The greater saphenous veins are also within normal limits. Doppler indicates normal spontaneous flow within these segments.
== END 2018-07-09 16:12 | disposition home or self-care (01) | DRG 573 ==
LOC: EMR 12:13 → 3E 12:28 → EDBEDREQ 13:09 → ICU 07-05 18:00 → 2E 07-07 19:41 → 3E 07-08 16:11
PROC: 0JBC0ZZ Excision of Pelvic Region Subcutaneous Tissue and Fascia, Open Approach (ICD-10-PCS; principal; 2018-06-29 13:00)
PROC: 0J8M0ZZ Division of Left Upper Leg Subcutaneous Tissue and Fascia, Open Approach (ICD-10-PCS; principal; 2018-06-29 13:00)
PROC: 0JBM0ZZ Excision of Left Upper Leg Subcutaneous Tissue and Fascia, Open Approach (ICD-10-PCS; principal; 2018-06-29 13:00)
PROC: 0JBL0ZZ Excision of Right Upper Leg Subcutaneous Tissue and Fascia, Open Approach (ICD-10-PCS; principal; 2018-06-29 13:00)
PROC: 0J8L0ZZ Division of Right Upper Leg Subcutaneous Tissue and Fascia, Open Approach (ICD-10-PCS; principal; 2018-06-29 13:00)
PROC: 0JXL0ZC Transfer Right Upper Leg Subcutaneous Tissue and Fascia with Skin, Subcutaneous Tissue and Fascia, Open Approach (ICD-10-PCS; 2018-07-04)
PROC: 0JXM0ZC Transfer Left Upper Leg Subcutaneous Tissue and Fascia with Skin, Subcutaneous Tissue and Fascia, Open Approach (ICD-10-PCS; 2018-07-04)
DX: L03.314 Cellulitis of groin (principal); J96.01 Acute respiratory failure with hypoxia; N17.0 Acute kidney failure with tubular necrosis; N39.0 Urinary tract infection, site not specified; B49 Unspecified mycosis; L03.116 Cellulitis of left lower limb; L03.115 Cellulitis of right lower limb; L73.2 Hidradenitis suppurativa; K59.00 Constipation, unspecified; R11.2 Nausea with vomiting, unspecified; E87.70 Fluid overload, unspecified; I95.9 Hypotension, unspecified; L29.9 Pruritus, unspecified; T36.8X5A Adverse effect of other systemic antibiotics, initial encounter; Y92.230 Patient room in hospital as the place of occurrence of the external cause
CPT/HCPCS: 36415; 36600; 71045; 78579; 78580; 80048; 80053; 80061; 80076; 81001; 81003; 81025; 82607; 82728; 82746; 82803; 82977; 83540; 83550; 83605; 83690; 83735; 83880; 84100; 84300; 84550; 84702; 85025; 86140; 86850; 86900; 86901; 87040; 87086; 89050; 93005; 93970; 94003; 94150; 94640; 94664; 94760; 96361; 96365; 96366; 99285; A9503; J2250; J2405; J7620; J8499